=== PATIENT | male | born 1960 | race Caucasian/White ===

== ENCOUNTER → 2018-05-24 | Outpatient (CLI) | payer BC ==
[2018-05-24 11:34] LABS: Basophils # (A) 0.1 k/uL (0-0.2); Basophils % (A) 1 %; Eosinophils # (A) 0.3 k/uL (0-0.7); Eosinophils % (A) 5 %; HCT 45.4 % (39.0-53.0); HGB 14.9 gm/dL (13.0-17.5); Lymphocytes # (A) 1.2 k/uL (1.0-4.8); Lymphocytes % (A) 23 %; MCH 30.3 pg (25.0-35.0); MCHC 32.7 g/dL (31.0-37.0); MCV 92.5 fL (80.0-100.0); Mean Platelet Volume 10.1; Monocytes # (A) 0.3 k/uL (0-1.0); Monocytes % (A) 6 %; Neutrophils # (A) 3.4 k/uL (1.3-7.7); Neutrophils % (A) 65 %; Platelet Count 105 k/uL (150-450); RBC 4.91 m/uL (4.30-5.90); RDW 14.5 % (11.5-15.5); WBC 5.3 k/uL (3.8-10.6)
[2018-05-24 17:28] LABS: Albumin 4.7 g/dL (3.80-4.90); Albumin/Globulin Ratio 2.94 (1.60-3.17); Anion Gap 9.3 mmol/L (4.00-12.00); Carbon Dioxide 24.7 mmol/L (21.6-31.8); Globulin 1.6 g/dL (1.6-3.3); LDL Cholesterol,Calculated 110.6 mg/dL (0.0-131.0); Potassium 4.3 mmol/L (3.5-5.5); Total Bilirubin 0.7 mg/dL (0.2-1.2); Total Protein 6.3 g/dL (6.2-8.2); VLDL Calculation 18.4 mg/dL (5.00-40.00)
== END | disposition home or self-care (01) ==
LOC: LABWHC1 09:37
PROVIDERS: ATTEND Nurse Practitioner Family
DX: Z01.812 Encounter for preprocedural laboratory examination (principal); E78.2 Mixed hyperlipidemia; Z12.5 Encounter for screening for malignant neoplasm of prostate
CPT/HCPCS: 36415; 80053; 80061; 84153; 85025

== ENCOUNTER 2018-09-17 09:17 | Emergency (ER) | payer BC ==
[2018-09-17] MEDS ORDERED: PROPARACAINE 0.5% OPHTH DROPS 15 ML BTL RIGHT EYE STA (09:45)
--- NOTE | 2018-09-17 10:03 | ED ---
Eye Problem HPI - General Chief complaint: Eye Problems Stated complaint: FB in eye Time Seen by Provider: 09/17/18 09:41 Source: patient Mode of arrival: ambulatory Limitations: no limitations - History of Present Illness Initial comments: Patient is a 58-year-old male presenting to the emergency Department with complaints of redness and irritation of his right eye 2 days. Patient states it feels like there something in his right eye. He does not remember any foreign object that he might, in contact with. Patient denies contact use. Patient admits to clear drainage from the eye. No changes in his vision. Patient denies headache, fever, chills. No other complaints at this time. - Related Data Previous Rx's Medication Instructions Recorded Sulfacetamide 10% Ophth Soln 2 drops RIGHT EYE Q6H 5 Days #1 09/17/18 [Bleph-10] bottle Allergies Allergy/AdvReac Type Severity Reaction Status Date / Time azithromycin [From Zithromax] Allergy Rash/Hives Verified 09/17/18 09:28 cephalexin [From Keflex] Allergy Rash/Hives Verified 09/17/18 09:28 dexamethasone [From Decadron] Allergy Rash/Hives Verified 09/17/18 09:28 Review of Systems ROS Statement: Those systems with pertinent positive or pertinent negative responses have been documented in the HPI. ROS Other: All systems not noted in ROS Statement are negative. Past Medical History Past Medical History: No Reported History History of Any Multi-Drug Resistant Organisms: None Reported Additional Past Surgical History / Comment(s): RT shoulder surgery Past Psychological History: No Psychological Hx Reported Smoking Status: Current every day smoker Past Alcohol Use History: Occasional Past Drug Use History: None Reported General Exam - General Exam Comments Initial Comments: GENERAL: Well-appearing, well-nourished and in no acute distress. HEAD: Atraumatic, normocephalic. EYES: Pupils equal round and reactive to light, extraocular movements intact, sclera anicteric, left conjunctiva is normal, right conjunctiva is slightly injected. Clear drainage from the right eye. Fluorescein stain seen under black light revealed a corneal abrasion at about the 3 o'clock position. ENT: TMs normal, nares patent, oropharynx clear without exudates. Moist mucous membranes. NECK: Normal range of motion, supple without lymphadenopathy or JVD. LUNGS: Breath sounds clear to auscultation bilaterally and equal. No wheezes rales or rhonchi. HEART: Regular rate and rhythm without murmurs, rubs or gallops. ABDOMEN: Soft, nontender, normoactive bowel sounds. No guarding, no rebound. No masses appreciated. : Deferred EXTREMITIES: Normal range of motion, no pitting or edema. No clubbing or cyanosis. NEUROLOGICAL: Cranial nerves II through XII grossly intact. Normal speech, normal gait. PSYCH: Normal mood, normal affect. SKIN: Warm, Dry, normal turgor, no rashes or lesions noted. Limitations: no limitations Course Vital Signs 09/17/18 09/17/18 09:21 10:42 Temperature 97.7 F 97.8 F Pulse Rate 66 68 Respiratory 18 14 Rate Blood Pressure 150/77 148/76 O2 Sat by Pulse 100 98 Oximetry Medical Decision Making - Medical Decision Making Patient is a 58-year-old male presenting with right eye irritation 2 days. On exam patient has redness and clear drainage from the right eye. Exam with fluorescein stain, under the black light reveals a corneal abrasion present. Patient had relief with proparacaine drops. Patient will be given antibiotic eyedrops. Patient is stable for discharge. Patient will follow up with ophthalmology if symptoms persist after 2-3 days. Return parameters were discussed with the patient he verbalized an understanding. Case discussed with Dr. Hernandez. Disposition Clinical Impression: Corneal abrasion Disposition: HOME SELF-CARE Condition: Stable Instructions (If sedation given, give patient instructions): Corneal Abrasion (ED) Additional Instructions: Please return to the Emergency Department if symptoms worsen or any other concerns. Follow-up with ophthalmology in 2-3 days if symptoms persist. Prescriptions: Sulfacetamide 10% Ophth Soln [Bleph-10] 2 drops RIGHT EYE Q6H 5 Days #1 bottle Is patient prescribed a controlled substance at d/c from ED?: No Referrals: Karissa Taylor III, MD [Primary Care Provider] - 1-2 days
[2018-09-17 10:47] VITALS: BP 148/76; PULSE 68; RESP 14; TEMP 97.8
== END 2018-09-17 10:42 | disposition home or self-care (01) ==
LOC: EC 09:17
DX: S05.01XA Injury of conjunctiva and corneal abrasion without foreign body, right eye, initial encounter (principal); F17.200 Nicotine dependence, unspecified, uncomplicated; Z88.1 Allergy status to other antibiotic agents; Z88.8 Allergy status to other drugs, medicaments and biological substances; X58.XXXA Exposure to other specified factors, initial encounter
CPT/HCPCS: 99283

== ENCOUNTER → 2019-09-30 | Outpatient (CLI) | payer OTHER ==
[2019-09-30 09:39] LABS: Basophils # (A) 0.1 k/uL (0-0.2); Basophils % (A) 1 %; Eosinophils # (A) 0.3 k/uL (0-0.7); Eosinophils % (A) 5 %; HCT 47.3 % (39.0-53.0); HGB 15.2 gm/dL (13.0-17.5); Lymphocytes # (A) 1.4 k/uL (1.0-4.8); Lymphocytes % (A) 27 %; MCH 30.2 pg (25.0-35.0); MCHC 32.2 g/dL (31.0-37.0); MCV 93.9 fL (80.0-100.0); Mean Platelet Volume 10.2; Monocytes # (A) 0.3 k/uL (0-1.0); Monocytes % (A) 5 %; Neutrophils # (A) 3.2 k/uL (1.3-7.7); Neutrophils % (A) 60 %; Platelet Count 118 k/uL (150-450); RBC 5.03 m/uL (4.30-5.90); RDW 13.3 % (11.5-15.5); WBC 5.3 k/uL (3.8-10.6)
[2019-09-30 18:22] LABS: African American GFR (CKD) 77.3 (60.0-200.0); Albumin 4.3 g/dL (3.80-4.90); Albumin/Globulin Ratio 2.05 (1.60-3.17); Anion Gap 10.3 mmol/L (4.00-12.00); BUN/Creat Ratio 13.33 Ratio (12.00-20.00); Calcium 9.1 mg/dL (8.7-10.3); Carbon Dioxide 22.7 mmol/L (21.6-31.8); Chol/HDL Ratio 3.08; Globulin 2.1 g/dL (1.6-3.3); LDL Cholesterol,Calculated 111.4 mg/dL (0.0-131.0); Non-African American GFR(CKD) 66.7 (60.0-200.0); Potassium 4.5 mmol/L (3.5-5.5); Total Bilirubin 0.4 mg/dL (0.2-1.2); Total Protein 6.4 g/dL (6.2-8.2); VLDL Calculation 15.6 mg/dL (5.00-40.00)
== END | disposition home or self-care (01) ==
LOC: LABWHC1 08:37
PROVIDERS: ATTEND Family Medicine
DX: Z01.818 Encounter for other preprocedural examination (principal); Z12.5 Encounter for screening for malignant neoplasm of prostate; E78.2 Mixed hyperlipidemia
CPT/HCPCS: 36415; 80053; 80061; 84153; 85025

== ENCOUNTER → 2019-10-16 | Outpatient (CLI) | payer OTHER ==
--- NOTE | 2019-10-16 08:20 | CTL ---
EXAMINATION TYPE: CT Low Dose Lung DATE OF EXAM ORDERED: 10/16/2019 COMPARISON: HISTORY: . Low Dose CT Lung Screening CT DLP: 72.[address] CTDI: 1.7 mGy IV CONTRAST USED: None. SCREENING VISIT: First visit COMPARISON: None. TECHNIQUE: Low dose computed tomography scan was performed through the chest at 1 millimeter thick se ctions and reconstructed images in the coronal plane at [address] DIAGNOSTIC QUALITY: Satisfactory FINDINGS: LUNG NODULES: Not presentLeft lung: no nodules identified.Right lung: no nodules identified. LUNGS: COPD: Severity: There is severe biapical scarring with areas of confluent nodular infiltrate. Moderat e hyperinflation compatible COPD. Moderate least severe paraseptal emphysematous changes noted. Scatt ered areas of subpleural fibrosis. Fibrosis: Severity:None Lymph nodes: None Other findings: None RIGHT PLEURAL SPACE: Effusion: None Calcification: None Thickening: None Pneumothorax: None LEFT PLEURAL SPACE: Effusion: None Calcification: None Thickening: None Pneumothorax: None HEART: Heart Size: Mildly enlarged Coronary calcification: Mild Pericardial effusion: None OTHER FINDINGS: Upper abdomen: No significant abnormality Bony thorax: Degenerative changes Supraclavicular region: No significant abnormalityOther: Ascending thoracic aortic aneurysm measuring 4.1 cm AP dimension.I IMPRESSION: 1.There is severe biapical scarring with areas of confluent nodular infiltrate. 2. Moderate hyperinflation compatible COPD. 3. Moderate least severe paraseptal emphysematous changes noted. 4. Scattered areas of subpleural fibrosis. FOLLOW UP CT CHEST RECOMMENDATION: 6 month follow-up by LDCT recommended. Smoking cessation advised. CT LUNG RAD: LUNG RAD CATEGORY 3 probably benign. Six-month follow-up advised.
== END | disposition home or self-care (01) ==
LOC: RADCTMAIN 07:38
PROVIDERS: ATTEND Family Medicine
DX: Z12.2 Encounter for screening for malignant neoplasm of respiratory organs (principal); J43.9 Emphysema, unspecified; J84.10 Pulmonary fibrosis, unspecified; J98.4 Other disorders of lung; F17.210 Nicotine dependence, cigarettes, uncomplicated

== ENCOUNTER 2019-11-14 06:54 | Day surgery (SDC) | payer OTHER ==
[2019-11-11 10:12] VITALS: BMI 19.2
[~2019-11-14 06:54] MED LIST: LACTATED RINGERS 1,000 ML IV SCH; LIDOCAINE 1% (10MG/ML) FOR IV START INTRADERMA PRN
[2019-11-14 07:19] VITALS: TEMP 97.6
--- NOTE | 2019-11-14 07:51 | P.GSHP ---
History of Present Illness H&P Date: 11/14/19 Chief Complaint: History of colon polyps This a 59-year-old male presents today for colonoscopy. Patient previous history of colon polyps. Past Medical History Past Medical History: Cancer, Osteoarthritis (OA) Additional Past Medical History / Comment(s): Hx Testicular cancer in 1981. History of Any Multi-Drug Resistant Organisms: None Reported Past Surgical History: Orthopedic Surgery Additional Past Surgical History / Comment(s): Right shoulder surgery, right leg surgery with clayton in femur. Past Anesthesia/Blood Transfusion Reactions: No Reported Reaction Past Psychological History: No Psychological Hx Reported Smoking Status: Current every day smoker Past Alcohol Use History: Heavy Additional Past Alcohol Use History / Comment(s): Has been smoking since 23 yrs old, 1 PPD. Past Drug Use History: None Reported - Past Family History Father Family Medical History: Cancer Additional Family Medical History / Comment(s): Brain tumor, lung cancer. Mother Family Medical History: Cancer Additional Family Medical History / Comment(s): "Female cancer" Medications and Allergies Home Medications Medication Instructions Recorded Confirmed Type No Known Home Medications 11/11/19 11/14/19 History Allergies Allergy/AdvReac Type Severity Reaction Status Date / Time azithromycin [From Zithromax] Allergy Rash/Hives Verified 11/14/19 07:21 cephalexin [From Keflex] Allergy Rash/Hives Verified 11/14/19 07:21 dexamethasone [From Decadron] Allergy Rash/Hives Verified 11/14/19 07:21 Surgical - Exam Vital Signs Temp Pulse Resp BP Pulse Ox 97.6 F 81 16 135/85 99 11/14/19 07:15 11/14/19 07:15 11/14/19 07:15 11/14/19 07:15 11/14/19 07:15 - General well developed, well nourished, no distress - Eyes PERRL - ENT normal pinna - Neck no masses - Respiratory normal expansion - Cardiovascular Rhythm: regular - Abdomen Abdomen: soft, non tender Assessment and Plan Assessment: History of colon polyps. We'll perform colonoscopy.
[2019-11-14] MEDS ORDERED: PROPOFOL 10 MG/ML 20 ML VIAL IV ONE (08:00)
[2019-11-14] MEDS ORDERED: GLUCAGON 1 MG/ML VIAL ONE (08:00)
--- NOTE | 2019-11-14 08:17 | P.OP ---
Date of Procedure: 11/14/19 Preoperative Diagnosis: History: Polyps Postoperative Diagnosis: Diverticulosis Left colon inflammation biopsy pending Procedure(s) Performed: Colonoscopy Anesthesia: MAC Surgeon: Gabriel Falcon Pathology: other (colon) Condition: stable Disposition: PACU Description of Procedure: The patient's placed on the endoscopy table in the lateral position. He received IV sedation. Digital rectal exam is performed which revealed external hemorrhoids. Flexible colonoscope was then placed patient anus passed throughout the colon. The patient was noted to have left colon formation. The scope was placed the level of the right colon however could not be passed into the cecum due to tortuous colon. Several times made to maneuver the scope into the cecum was impossible. Scope was withdrawn. The distal A;, transverse colon appeared normal. In the descending colon at approximately the 65 cm ravindra there was some inflammatory changes which were thought to be related to into layers. A biopsies performed. Scope was brought back and the remaining of the descending; had diverticular changes. Scope summer back the rectum and this appeared normal. Scope was withdrawn for patient.
[2019-11-14] MEDS ORDERED: DIGOXIN 250 MCG/ML 2 ML AMP IVP ONE (08:52)
--- NOTE | 2019-11-14 10:45 | ECHOF ---
Referral Reason:LV function, new afib MEASUREMENTS -------- HEIGHT: 188.0 cm WEIGHT: 65.8 kg BP: 90/50 RVIDd: 3.6 cm (< 3.3) IVSd: 1.4 cm (0.6 - 1.1) LVIDd: 3.1 cm (3.9 - 5.3) LVPWd: 1.6 cm (0.6 - 1.1) IVSs: 1.5 cm LVIDs: 2.6 cm LVPWs: 1.7 cm LAESV Index (A-L): 24.05 ml/m Ao Diam: 4.6 cm (2.0 - 3.7) AV Cusp: 2.8 cm (1.5 - 2.6) MV EXCURSION: 13.254 mm (> 18.000) MV EF SLOPE: 229 mm/s (70 - 150) EPSS: 1.2 cm RAP: 5.00 mmHg RVSP: 27.00 mmHg FINDINGS -------- A-fib with RVR The left ventricular size is normal. There is moderate concentric left ventricular hypertrophy. O verall left ventricular systolic function is mild-moderately impaired with, an EF between 40 - 45 %. The right ventricle is moderately enlarged. Normal LA size by volume 22+/-6 ml/m2. The right atrium is mildly enlarged. Interatrial and interventricular septum intact. There is no evidence of aortic regurgitation. There is no evidence of aortic stenosis. There is trace to mild mitral regurgitation. Mild tricuspid regurgitation present. There is no evidence of pulmonary hypertension. The right v entricular systolic pressure, as measured by Doppler, is 27.00mmHg. There is no pulmonic regurgitation present. The aortic root and ascending aorta are dilated measuring up to (4.6) cm. There is no pericardial effusion. CONCLUSIONS -------- 1. A-fib with RVR 2. The left ventricular size is normal. 3. There is moderate concentric left ventricular hypertrophy. 4. Overall left ventricular systolic function is mild-moderately impaired with, an EF between 40 - 45 %. 5. The right ventricle is moderately enlarged. 6. The right atrium is mildly enlarged. 7. There is trace to mild mitral regurgitation. 8. Mild tricuspid regurgitation present. 9. The aortic root and ascending aorta are dilated measuring up to (4.6) cm. CHROME PLATER HELPER: Skylar Ramos RDCS
[2019-11-14] MEDS ORDERED: LACTATED RINGERS 1,000 ML IV ONE (11:45)
[2019-11-14 12:29] VITALS: RESP 16
[2019-11-14] MEDS ORDERED: AMIODARONE 200 MG TAB PO SCH (12:30)
[2019-11-14 14:11] VITALS: BP 130/79; PULSE 59
--- NOTE | 2019-11-14 14:23 | P.CRDCN ---
History of Present Illness Consult date: 11/14/19 History of present illness: CHIEF COMPLAINT: Atrial fibrillation HISTORY OF PRESENT ILLNESS: This is a 59-year old male with a past medical history significant for nicotine dependence. We have been asked to see the patient in consultation for atrial fibrillation. Patient underwent colonoscopy today with Dr. Falcon revealing diverticulosis and left colon inflammation. Biopsies were obtained. Postoperatively, the patient went into atrial fibrillation with RVR. Patient examined in the recovery room with Dr. Welsh. Patient's is at the bedside. Patient follows in the office with Shashi and is scheduled to see him on Sunday secondary to an aortic aneurysm per the patient's . Patient denies previous history of atrial fibrillation. He currently denies chest pain or shortness of breath. Denies palpitations. DIAGNOSTICS: EKG reveals atrial fibrillation with rapid ventricular rate. Laboratory data: Pending Current home cardiac medications include none Echocardiogram completed revealing ejection fraction between 40 and 45%, trace to mild mitral regurgitation and mild tricuspid regurgitation REVIEW OF SYSTEMS: At the time of my exam: CONSTITUTIONAL: Denies fever or chills. HEENT: Denies blurred vision, vision changes, or eye pain. Denies hemoptysis CARDIOVASCULAR: Denies chest pain, orthopnea, PND or palpitations RESPIRATORY: No shortness of breath. GASTROINTESTINAL: Denies abdominal pain. Denies nausea or vomiting. HEMATOLOGIC: Denies bleeding disorders. GENITOURINARY: Denies any blood in urine. SKIN: Denies pruitis. Denies rash. PHYSICAL EXAM: VITAL SIGNS: Reviewed. GENERAL: Well-developed in no acute distress. HEENT: Head is normocephalic. Pupils are equal, round. Sclerae anicteric. Mucous membranes of the mouth are moist. Neck supple. No JVD or thyromegaly LUNGS: Respirations even and unlabored. Lungs essentially clear to auscultation bilaterally. HEART: Irregular rate and rhythm. S1 and S2 heard. ABDOMEN: Soft. Nondistended. Nontender. EXTREMITIES: Normal range of motion. No clubbing or cyanosis. Peripheral pulses intact. No lower extremity edema NEUROLOGIC: Awake and alert. Oriented x 3. ASSESSMENT: New-onset paroxysmal atrial fibrillation with rapid ventricular rate History of ascending thoracic aortic aneurysm Nicotine dependence PLAN: Patient received one time dose of digoxin IVP in the recovery room. He has since converted to sinus mechanism with a rate in the 60s. Echocardiogram reviewed by Dr. Welsh Obtain TSH, CBC, and CMP Case discussed with Dr. Falcon. No anticoagulation today secondary to biopsies taken during colonoscopy. Will begin Eliquis 5 mg twice a day for anticoagulation. Patient instructed to begin this tomorrow. Will also begin digoxin 250mcg daily. Rx sent to pharmacy. Patient may be discharged home today from a cardiac perspective. He has an appointment scheduled with Dr. Marion on Sunday per the patient's . Nurse practitioner note has been reviewed by physician. Signing provider agrees with the documented findings, assessment, and plan of care. Past Medical History Past Medical History: Cancer, Osteoarthritis (OA) Additional Past Medical History / Comment(s): Hx Testicular cancer in 1981. History of Any Multi-Drug Resistant Organisms: None Reported Past Surgical History: Orthopedic Surgery Additional Past Surgical History / Comment(s): Right shoulder surgery, right leg surgery with clayton in femur. Past Anesthesia/Blood Transfusion Reactions: No Reported Reaction Past Psychological History: No Psychological Hx Reported Smoking Status: Current every day smoker Past Alcohol Use History: Heavy Additional Past Alcohol Use History / Comment(s): Has been smoking since 23 yrs old, 1 PPD. Past Drug Use History: None Reported - Past Family History Father Family Medical History: Cancer Additional Family Medical History / Comment(s): Brain tumor, lung cancer. Mother Family Medical History: Cancer Additional Family Medical History / Comment(s): "Female cancer" Medications and Allergies Home Medications Medication Instructions Recorded Confirmed Type Apixaban [Eliquis] 5 mg PO BID #60 tab 11/14/19 Rx Digoxin [Lanoxin] 250 mcg PO DAILY #90 tablet 11/14/19 Rx Allergies Allergy/AdvReac Type Severity Reaction Status Date / Time azithromycin [From Zithromax] Allergy Rash/Hives Verified 11/14/19 07:21 cephalexin [From Keflex] Allergy Rash/Hives Verified 11/14/19 07:21 dexamethasone [From Decadron] Allergy Rash/Hives Verified 11/14/19 07:21 Physical Exam Vitals: Vital Signs Temp Pulse Pulse Resp BP Pulse Ox 11/14/19 13:47 67 16 131/84 92 L 11/14/19 13:30 57 L 16 117/73 92 L 11/14/19 13:07 56 L 16 131/81 99 11/14/19 12:28 53 L 16 104/78 93 L 11/14/19 12:00 138 H 18 104/78 99 11/14/19 11:40 127 H 18 105/81 99 11/14/19 11:10 132 H 18 100/76 100 11/14/19 10:38 107 H 18 115/76 100 11/14/19 10:23 115 H 16 119/75 100 11/14/19 09:43 102 H 16 113/72 95 11/14/19 09:26 107 H 16 113/73 100 11/14/19 09:12 104 H 14 109/70 100 11/14/19 08:50 105 H 16 90/50 100 11/14/19 08:40 118 H 18 108/73 100 11/14/19 08:34 76 16 91/57 98 11/14/19 08:30 83 16 93/64 98 11/14/19 08:26 121 H 16 107/71 98 11/14/19 08:24 120 H 16 91/60 99 11/14/19 08:22 120 H 16 91/60 100 11/14/19 08:20 70 16 92/64 94 L 11/14/19 07:15 97.6 F 81 16 135/85 99 Intake and Output 11/13/19 11/14/19 11/14/19 22:59 06:59 14:59 Intake Total 1400 Output Total 500 Balance 900 Intake: IV 1400 Output: Urine 500 Other: Weight 66.2 kg Results Current Medications Generic Name Dose Route Start Last Admin Trade Name Freq PRN Reason Stop Dose Admin Lactated Ringer's 1,000 mls @ 20 mls/hr 11/14/19 05:25 11/14/19 07:30 Lactated Ringers IV 1,400 mls .Q24H ANITA Administration Lidocaine HCl 0.1 ml 11/14/19 05:25 11/14/19 07:30 Lidocaine 1% (10mg/Ml) For Iv Start INTRADERMA 0.1 ml PER PROTOCOL PRN Administration IV Start Intake and Output 11/13/19 11/14/19 11/14/19 22:59 06:59 14:59 Intake Total 1400 Output Total 500 Balance 900 Intake: IV 1400 Output: Urine 500 Other: Weight 66.2 kg Patient Weight 11/15/19 06:59 Weight 66.2 kg
[2019-11-14 14:46] LABS: Basophils % (A) 1 %; Eosinophils # (A) 0.2 k/uL (0-0.7); Eosinophils % (A) 2 %; HCT 44.1 % (39.0-53.0); HGB 14.5 gm/dL (13.0-17.5); Lymphocytes # (A) 1.3 k/uL (1.0-4.8); Lymphocytes % (A) 21 %; MCH 30.4 pg (25.0-35.0); MCV 92.1 fL (80.0-100.0); Mean Platelet Volume 9.5; Monocytes # (A) 0.3 k/uL (0-1.0); Monocytes % (A) 6 %; Neutrophils # (A) 4.3 k/uL (1.3-7.7); Neutrophils % (A) 69 %; Platelet Count 118 k/uL (150-450); RBC 4.78 m/uL (4.30-5.90); RDW 13.3 % (11.5-15.5); WBC 6.2 k/uL (3.8-10.6)
[2019-11-14 15:25] LABS: ALT 12 U/L (4-49); AST 23 U/L (17-59); African American GFR (CKD) >90 (>60 ml/min/1.73 sqM); Albumin 3.4 g/dL (3.5-5.0); Alkaline Phosphatase 61 U/L (38-126); Anion Gap 6 mmol/L; Blood Urea Nitrogen 12 mg/dL (9-20); Carbon Dioxide 22 mmol/L (22-30); Chloride 106 mmol/L (98-107); Glucose 90 mg/dL (74-99); Non-African American GFR(CKD) 87 (>60 ml/min/1.73 sqM); Potassium 4.6 mmol/L (3.5-5.1); Sodium 134 mmol/L (137-145); Total Protein 5.7 g/dL (6.3-8.2)
== END 2019-11-14 14:19 | disposition home or self-care (01) ==
LOC: ORWHC2ENDO 06:54
PROVIDERS: ATTEND Surgery
DX: Z12.11 Encounter for screening for malignant neoplasm of colon (principal); K52.9 Noninfective gastroenteritis and colitis, unspecified; K57.30 Diverticulosis of large intestine without perforation or abscess without bleeding; I48.0 Paroxysmal atrial fibrillation; Z86.010 Personal history of colon polyps; Q43.9 Congenital malformation of intestine, unspecified; F17.210 Nicotine dependence, cigarettes, uncomplicated; M19.90 Unspecified osteoarthritis, unspecified site; Z88.1 Allergy status to other antibiotic agents; Z88.8 Allergy status to other drugs, medicaments and biological substances; Z98.890 Other specified postprocedural states; Z85.47 Personal history of malignant neoplasm of testis; Z79.01 Long term (current) use of anticoagulants; Z79.899 Other long term (current) drug therapy; Z80.1 Family history of malignant neoplasm of trachea, bronchus and lung; Z80.8 Family history of malignant neoplasm of other organs or systems
CPT/HCPCS: 93306; 93005; 88305; 80053; 84443; 85025; 45380; J1610; J1160; J2704

== ENCOUNTER 2019-12-10 06:08 | Day surgery (SDC) | payer OTHER ==
[~2019-12-10 06:08] MED LIST changes: +ALPRAZolam 0.25 MG TAB PO PRN; +ALPRAZolam 0.5 MG TAB PO PRN; -LACTATED RINGERS 1,000 ML IV SCH; -LIDOCAINE 1% (10MG/ML) FOR IV START INTRADERMA PRN; +NITROGLYCERIN SL TABS 0.4 MG TAB SUBLINGUAL PRN; +SODIUM CHLORIDE 0.9% 1,000 ML in EMPTY BAG 1 BAG IV ONE
[2019-12-10] MEDS ORDERED: ATORVASTATIN 80 MG TAB PO ONE (07:00)
[2019-12-10] MEDS ORDERED: ASPIRIN 325 MG TAB PO ONE (07:00)
[2019-12-10 07:14] LABS: Eosinophils % (A) 3 %; HCT 43.7 % (39.0-53.0); Lymphocytes % (A) 16 %; MCH 31.7 pg (25.0-35.0); MCHC 34.4 g/dL (31.0-37.0); MCV 92.1 fL (80.0-100.0); Mean Platelet Volume 9.6; Monocytes % (A) 6 %; Neutrophils % (A) 73 %; Platelet Count 120 k/uL (150-450); RBC 4.74 m/uL (4.30-5.90); RDW 12.9 % (11.5-15.5); WBC 8.2 k/uL (3.8-10.6)
[2019-12-10 07:15] LABS: Basophils # (A) 0.1 k/uL (0-0.2); Basophils % (A) 1 %; Eosinophils # (A) 0.2 k/uL (0-0.7); Lymphocytes # (A) 1.3 k/uL (1.0-4.8); Monocytes # (A) 0.5 k/uL (0-1.0)
[2019-12-10] MEDS ORDERED: SODIUM CHLORIDE 0.9% 1,000 ML IV ONE (07:17)
[2019-12-10] MEDS ORDERED: MIDAZOLAM 2 MG/2 ML VIAL IV ONE (07:40)
[2019-12-10] MEDS ORDERED: LIDOCAINE 1% INJ 10MG/ML (20 ML MDV) SQ ONE (07:41)
[2019-12-10] MEDS ORDERED: VERAPAMIL SYRINGE (5 MG/10 ML) INTRAARTER ONE (07:52)
[2019-12-10] MEDS: fentaNYL (PF) 50 MCG/ML 2 ML AMP IV ONE ×2 (08:00→08:13)
[2019-12-10] MEDS ORDERED: HYDROmorphone 0.5 MG/0.5 ML SYRINGE IVP ONE (08:38)
[2019-12-10] MEDS ORDERED: IOPAMIDOL-370 125ML BTL INJ ONE (08:48)
[2019-12-10] MEDS ORDERED: CLOPIDOGREL 75 MG TAB PO ONE (08:55)
[2019-12-10] MEDS ORDERED: RX INFO: IV CONTRAST WAS GIVEN 1 EACH MISC MISCELLANE PRN (08:56)
[2019-12-10] MEDS ORDERED: ZOLPIDEM 5 MG TAB PO PRN (08:56)
[2019-12-10] MEDS ORDERED: MAG HYDROX/AL HYDROX/SIMETH 30 ML CUP PO PRN (08:56)
[2019-12-10] MEDS ORDERED: ATROPINE SULFATE 0.1 MG/ML 10ML SYRINGE IV PRN (08:56)
[2019-12-10] MEDS ORDERED: NITROGLYCERIN SL TABS 0.4 MG TAB SUBLINGUAL PRN (08:56)
[2019-12-10] MEDS ORDERED: SODIUM CHLORIDE 0.9% 1,000 ML IV SCH (09:00)
[2019-12-10] MEDS: METOPROLOL SUCCINATE (ER) 25 MG TAB.ER.24H PO SCH (09:40)
--- NOTE | 2019-12-10 10:26 | CC ---
CARDIAC CATHETERIZATION REPORT CARDIAC CATHETERIZATION AND PERCUTANEOUS CORONARY INTERVENTION: DATE OF SERVICE: 12/10/2019 PERFORMING PHYSICIAN: Jim Marion MD. PROCEDURE PERFORMED: 1. Selective right and left coronary angiogram. 2. Left heart catheterization. 3. Atherectomy of the right coronary artery using the orbital atherectomy device from [employer]. 4. Successful stenting of the mid right coronary artery using 3.5 x 15 mm Xience NEREIDA drug-eluting stent with an excellent angiographic result and reduction of stenosis from 80% to 0%. 5. Placement of temporary pacemaker from left groin approach. INDICATION: This is a 59-year-old gentleman with history of paroxysmal atrial fibrillation, who unfortunately continues to smoke. He was experiencing shortness of breath with exertion concerning for severe underlying coronary artery disease. Recent echocardiogram revealed cardiomyopathy with EF between 40%-45%. Because of that, heart catheterization was advised. APPROACH: Right radial artery and left common femoral vein. COMPLICATION: None. LEVEL OF SEDATION: Moderate with sedation length of 1 hour and 9 minutes. PROCEDURE DESCRIPTION: After obtaining an informed consent, the patient was brought to the cardiac seed laboratory assistant. The right radial artery was cannulated using micropuncture technique and a micropuncture wire passed easily, then I placed a 6-Micronesian sheath. At that point, the patient was given a total of the 2 mg of verapamil IA and 6000 units of heparin IV. I did perform selective right and left coronary angiogram using JR4 and JL3.5 catheters. Left heart catheterization was performed using the JR4 catheter which crossed the aortic valve, then I did the pullback across the valve after the catheter was flushed. After that, I decided to intervene on the right coronary artery. Please see a separate paragraph for that. Also, I placed temporary pacemaker from left groin approach. The procedure was completed without any complication. SELECTIVE CORONARY ANGIOGRAM: 1. The right coronary artery is a large caliber vessel, it is a dominant vessel. The proximal RCA has mild disease only. The mid RCA has a lesion, appeared to be in the range of 80%. The RCA distally appeared to be tortuous but angiographically normal and bifurcates into PDA and PLV branches, both appeared to be angiographically normal. The RCA is overall calcified. 2. The left main is angiographically normal. It bifurcates into LCX and LAD. 3. The LCX is a large caliber vessel. The LCX is a nondominant vessel. The LCX overall appears to be angiographically normal. It gives rise into a large OM branch in the midportion which seems to be angiographically normal. 4. The ramus intermedius is a medium caliber vessel, seems to be angiographically normal. 5. The left anterior descending artery is a large caliber vessel. It does reach the apex. The LAD is calcified with mild disease only. In the proximal to midportion, it gives rise into the first and second diagonal branches and both are medium caliber vessel with mild to moderate disease only. 6. HEMODYNAMICS: The LVEDP was about 12 mmHg without significant gradient across the aortic valve. 7. PCI of the RCA: Anticoagulation was achieved with heparin only with continuous ACT monitoring throughout the procedure. The patient was given additional 2000 of heparin throughout the procedure. 8. I did initially access the right common femoral vein, but I could not advance the wire and because of that, I decided to access the left common vein. The left common femoral vein was cannulated using micropuncture technique, the micropuncture wire passed easily, then I placed an 8-Micronesian sheath. 9. Under fluoroscopy guidance, I advanced the temporary pacemaker with a balloon inflated tip all the way to the apex of the right ventricle. I placed a temporary pacemaker, amp of 5 and backup heart rate of 60. 10.Subsequently, I engaged the right coronary artery using JR3.5 guide. I did wire the left anterior descending artery using the Viper Advantage wire. After that, I did prep the atherectomy device and then I advanced the device over the Viper wire to the right coronary artery where I did two runs of atherectomy under low speed with each run about 15-20 seconds. 11.After that, balloon angioplasty was performed using 3.0 x 12 mm balloon. Finally, I deployed 3.5 x 15 mm Xience drug-eluting stent where the stent was positioned under fluoroscopy guidance and deployed under 14 atmospheres for 20 seconds. The midportion of the stent was not well opposed and deployed and because of that, I post-dilated the stent using 3.25 x 12 mm NC balloon. The balloon was inflated under 12 atmospheres for 20 seconds. 12.After that, I gave the patient 100 mcg of nicardipine and 100 mcg of nitroglycerin with the following angiogram showing excellent angiographic results with good flow and without any dye staining. 13.There was possibly at the proximal edge of the stent, very small dissection was not flow limiting and at that point, but because of that I decided not to stent that segment. 14.The procedure was completed without any complication. 15.After that I did place a TR band in the right arm over the right wrist and also I pulled the temporary pacemaker from the left groin. CONCLUSION: 1. Calcified right and left coronary systems. 2. Critical disease involving the calcified right coronary artery. 3. I performed successful atherectomy and stenting of the right coronary artery with an excellent angiographic results and reduction of stenosis from 80% to 0%. 4. Mild disease involving the left coronary system. 5. Normal left ventricular end-diastolic pressure. POSTPROCEDURE MANAGEMENT: 1. Triple therapy including Plavix, Xarelto, and low-dose aspirin. 2. The dose of Xarelto will be reduced from 20 to 15 mg daily. 3. The aspirin will be stopped in the next few weeks. 4. Follow up with the patient. MMADRIANNE / RENNYN: [id number] /
--- NOTE | 2019-12-10 10:32 | LTR ---
DATE OF SERVICE: 12/10/2019 RE: Nathan Hamilton Dear Dr. Taylor; Mr. Nathan Hamilton was seen in the office recently where he was experiencing shortness of breath with exertion, concerning for severe underlying coronary artery disease. He underwent an echocardiogram which revealed cardiomyopathy with EF between 40%-45%. Today, I performed a heart catheterization on him and that revealed calcified right and left coronary systems with critical disease involving the mid right coronary artery. I did perform successful atherectomy and stenting of the right coronary artery with an excellent angiographic results and without any complication. I want to thank you for allowing us to participate in his care and please do not hesitate to call if you have any question or any concerns. Sincerely yours, MD JESSIE Brown / RENNYN: [id number] /
[2019-12-10 13:54] VITALS: BMI 19.1
[2019-12-10] MEDS ORDERED: ATORVASTATIN 80 MG TAB PO SCH (21:00)
[2019-12-11 05:31] VITALS: TEMP 98
[2019-12-11 07:22] LABS: Basophils % (A) 1 %; Eosinophils # (A) 0.2 k/uL (0-0.7); Eosinophils % (A) 4 %; HGB 13.9 gm/dL (13.0-17.5); Lymphocytes # (A) 1.5 k/uL (1.0-4.8); Lymphocytes % (A) 27 %; MCH 31.1 pg (25.0-35.0); MCV 94.4 fL (80.0-100.0); Mean Platelet Volume 8.9; Monocytes # (A) 0.3 k/uL (0-1.0); Monocytes % (A) 6 %; Neutrophils # (A) 3.3 k/uL (1.3-7.7); Neutrophils % (A) 61 %; Platelet Count 107 k/uL (150-450); RBC 4.46 m/uL (4.30-5.90); RDW 13.1 % (11.5-15.5); WBC 5.4 k/uL (3.8-10.6)
[2019-12-11 07:33] LABS: African American GFR (CKD) >90 (>60 ml/min/1.73 sqM); Anion Gap 3 mmol/L; Blood Urea Nitrogen 12 mg/dL (9-20); Calcium 8.8 mg/dL (8.4-10.2); Carbon Dioxide 27 mmol/L (22-30); Chloride 107 mmol/L (98-107); Glucose 102 mg/dL (74-99); Non-African American GFR(CKD) 83 (>60 ml/min/1.73 sqM); Potassium 4.4 mmol/L (3.5-5.1); Sodium 137 mmol/L (137-145)
[2019-12-11] MEDS: METOPROLOL SUCCINATE (ER) 25 MG TAB.ER.24H PO SCH (08:37)
[2019-12-11] MEDS ORDERED: CLOPIDOGREL 75 MG TAB PO SCH (09:00)
[2019-12-11] MEDS ORDERED: NIFEdipine XL 30 MG TAB.ER.24 PO SCH (09:00)
[2019-12-11] MEDS ORDERED: ASPIRIN 81 MG PO SCH (09:00)
[2019-12-11 09:10] VITALS: BP 123/66; PULSE 55; RESP 16
--- NOTE | 2019-12-11 11:20 | DS ---
DISCHARGE SUMMARY DATE OF ADMISSION: 12/10/2019 DISCHARGE DATE: 12/11/2019 BRIEF HISTORY: This is a 59-year-old gentleman who underwent yesterday successful stenting of the right coronary artery with adjunctive use of atherectomy. The procedure was performed from right radial approach. The patient was seen this morning. He is asymptomatic from a cardiovascular standpoint of view. He is going to be discharged home on triple therapy including low-dose aspirin as well as oral anticoagulation with Xarelto as well as Plavix. The patient is going to be seen in the office in a week. MMNORBERTOL / RENNYN: [id number] /
== END 2019-12-11 10:35 | disposition home or self-care (01) ==
LOC: CATHCVL 06:08 → 3NCARDOBS 08:50 → CATHCVL 12-11 10:35
PROVIDERS: ATTEND Internal Medicine Interventional Cardiology
DX: I25.10 Atherosclerotic heart disease of native coronary artery without angina pectoris (principal); I48.0 Paroxysmal atrial fibrillation; I71.2 Thoracic aortic aneurysm, without rupture; I42.9 Cardiomyopathy, unspecified; I10 Essential (primary) hypertension; F17.210 Nicotine dependence, cigarettes, uncomplicated; E78.00 Pure hypercholesterolemia, unspecified; Z88.1 Allergy status to other antibiotic agents; Z88.8 Allergy status to other drugs, medicaments and biological substances
CPT/HCPCS: 93458; 85347; 80048; 85025 ×2; C9602; C1769 ×6; C1725 ×2; C1894 ×2; C1887; C1714; C1874; J2250; J2001; J3010; J1644; J1170; Q9967

== ENCOUNTER → 2019-12-17 | Outpatient (CLI) | payer OTHER ==
--- NOTE | 2019-12-17 21:32 | CT ---
EXAMINATION TYPE: CT abdomen pelvis w con DATE OF EXAM: 12/17/2019 COMPARISON: None INDICATION: diverticulitis DLP: 530 mGycm, Automated exposure control for dose reduction was used. CONTRAST: 100 mL of Isovue 300. Study performed with Oral Contrast TECHNIQUE: Axial images were obtained from above the diaphragm to the pubic rami in the axial plane a t 5 mm thick sections. Reconstructed images are reviewed on the computer in the coronal plane. FINDINGS: Limited CT sections are obtained the lung bases. The lung bases are clear. Multiple surgical clips are at the level of the renal veins adjacent to the aorta and inferior vena cava. CT ABDOMEN: Liver: Normal Spleen: Normal Pancreas: Normal Adrenal glands: The adrenal glands are normal. Gallbladder: Normal Kidneys: No masses are evident. No hydronephrosis is present. No cysts are present. Delayed images were obtained through the kidneys, which remain unremarkable. Aorta: Vascular calcification is within the aorta. Inferior vena cava: Normal. CT PELVIS: Loops of bowel within the abdomen and pelvis are normal. A few scattered diverticuli are within the redundant sigmoid colon. The duodenum is slightly prominent fluid-filled. There are loops of bowel w hich are incompletely distended or lack oral contrast limiting their evaluation. Appendix: Not identified. No suspicious inflammatory changes or dilated tubular structures are eviden t. Urinary bladder: Normal. Genitourinary structures: Prostate is prominent. Multiple prostate calcifications are present. Osseous structures: No suspicious lytic or sclerotic lesions. IMPRESSIONS: 1. Diverticulosis without acute diverticulitis. 2. Prostate hypertrophy
== END | disposition home or self-care (01) ==
LOC: RADCTMAIN 17:29
PROVIDERS: ATTEND Surgery
DX: K57.90 Diverticulosis of intestine, part unspecified, without perforation or abscess without bleeding (principal); N40.0 Benign prostatic hyperplasia without lower urinary tract symptoms
CPT/HCPCS: 74177; Q9967

== ENCOUNTER → 2020-01-23 | Outpatient (CLI) | payer OTHER | END | disposition home or self-care (01) | LOC: LABWHC1 11:42 | PROVIDERS: ATTEND Family Medicine | DX: R97.20 Elevated prostate specific antigen [PSA] (principal) | CPT/HCPCS: 36415; 84153 ==

== ENCOUNTER → 2020-06-02 | Outpatient (CLI) | payer OTHER ==
--- NOTE | 2020-06-03 07:39 | CTL ---
EXAMINATION TYPE: CT Low Dose Lung DATE OF EXAM ORDERED: 06/02/2020 COMPARISON: 10/16/2019 HISTORY: . Low Dose CT Lung Screening CT DLP: [address] CTDI: 1.8 mGy IV CONTRAST USED: None. SCREENING VISIT: First visit COMPARISON: None. TECHNIQUE: Low dose computed tomography scan was performed through the chest at 1 millimeter thick se ctions and reconstructed images in the coronal plane at [address] DIAGNOSTIC QUALITY: Satisfactory FINDINGS: LUNG NODULES: There is biapical scarring are noted in pleural thickening unchanged from prior examina tion. No distinct nodule or mass identified. LUNGS: COPD: Severity: Moderate Fibrosis: Severity:None Lymph nodes: None Other findings: Emphysematous changes noted stable from prior examination. RIGHT PLEURAL SPACE: Effusion: None Calcification: None Thickening: None Pneumothorax: None LEFT PLEURAL SPACE: Effusion: None Calcification: None Thickening: None Pneumothorax: None HEART: Heart Size: Mildly enlarged Coronary calcification: Mild Pericardial effusion: None OTHER FINDINGS: Upper abdomen: No significant abnormality Bony thorax: Degenerative changes Supraclavicular region: No significant abnormalityOther: No significant abnormalityI IMPRESSION: Stable biapical scarring and pleural thickening. No distinct nodules or masses seen. FOLLOW UP CT CHEST RECOMMENDATION: Follow-up screening in one year. Smoking cessation recommended. CT LUNG RAD: LUNG RAD CATEGORY benign category 2
== END | disposition home or self-care (01) ==
LOC: RADCTMAIN 17:13
PROVIDERS: ATTEND Family Medicine
DX: J98.4 Other disorders of lung (principal)
CPT/HCPCS: 71271

== ENCOUNTER → 2021-04-21 | Outpatient (CLI) | payer OTHER ==
[2021-04-21 15:08] LABS: Basophils # (A) 0.04 X 10*3/uL (0.00-0.10); Basophils % (A) 0.8 %; Eosinophils # (A) 0.18 X 10*3/uL (0.04-0.35); Eosinophils % (A) 3.5 %; HCT 42.8 % (39.6-50.0); HGB 13.6 g/dL (13.0-17.0); Immature Grans, Automated 0.2 %; Lymphocytes # (A) 1.27 X 10*3/uL (0.90-5.00); MCH 29.5 pg (27.0-32.0); MCHC 31.8 g/dL (32.0-37.0); MCV 92.8 fL (80.0-97.0); Mean Platelet Volume 12.6 fL (9.5-12.2); Monocytes # (A) 0.33 X 10*3/uL (0.20-1.00); Monocytes % (A) 6.5 %; NRBC Per 100 WBC 0 /100 WBCS (0.0-0.0); Neutrophils # (A) 3.25 X 10*3/uL (1.80-7.70); Platelet Count 121 X 10*3/uL (140-440); RBC 4.61 X 10*6/uL (4.40-5.60); RDW 13.8 % (11.5-14.5); WBC 5.08 X 10*3/uL (4.50-10.00)
[2021-04-21 15:42] LABS: ALT 30 U/L (10-49); AST 23 U/L (14-35); African American GFR (CKD) 76.8 (60.0-200.0); Albumin 4.5 g/dL (3.8-4.9); Albumin/Globulin Ratio 2.05 (1.60-3.17); Alkaline Phosphatase 75 U/L (41-126); Blood Urea Nitrogen 16.8 mg/dL (9.0-27.0); Calcium 9.1 mg/dL (8.7-10.3); Carbon Dioxide 20.2 mmol/L (20.0-27.5); Chloride 104 mmol/L (96-109); Chol/HDL Ratio 2.67 Ratio; Globulin 2.2 g/dL (1.6-3.3); Glucose 82 mg/dL (70-110); LDL Cholesterol,Calculated 55.9 mg/dL (0.0-131.0); Non-African American GFR(CKD) 66.3 (60.0-200.0); Potassium 4.4 mmol/L (3.5-5.5); Sodium 139 mmol/L (135-145); Total Protein 6.7 g/dL (6.2-8.2)
== END | disposition home or self-care (01) ==
LOC: LABWHC1 07:55
PROVIDERS: ATTEND Family Medicine
DX: I73.00 Raynaud's syndrome without gangrene (principal)
CPT/HCPCS: 36415; 80053; 80061; 84443; 85025

== ENCOUNTER → 2021-05-30 | Outpatient (CLI) | payer MEDICARE, OTHER ==
--- NOTE | 2021-05-30 13:38 | CTL ---
EXAMINATION TYPE: CT Low Dose Lung DATE OF EXAM ORDERED: 05/30/2021 HISTORY: Tobacco use. Lung cancer screening CT DLP: [address] CTDI: 1.80 mGy Automated exposure control for dose reduction was used. SCREENING VISIT: Follow-up COMPARISON: CT dated 06/02/2020 TECHNIQUE: Low dose computed tomography scan was performed through the chest at 1 mm thick sections a nd reconstructed images in multiple planes at 1 mm and [address] DIAGNOSTIC QUALITY: Satisfactory FINDINGS: LUNG NODULES: None. LUNGS: COPD: Severity: Moderate Fibrosis: Severity: Bilateral apical thick pulmonary fibrotic changes, scarring and nodular thickenin g with traction bronchiectasis, stable. Lymph nodes: No pathologically enlarged lymph nodes in the chest. Other findings: Scattered bilateral pulmonary peripheral reticulations and minimal fibrotic changes. Paraseptal emphysema is also seen mainly in the lung apex. Bronchial thickening which could be relate d to chronic bronchitis. RIGHT PLEURAL SPACE: Effusion: None Calcification: None Thickening: None Pneumothorax: None LEFT PLEURAL SPACE: Effusion: None Calcification: None Thickening: None Pneumothorax: None HEART: Heart Size: Prominent Coronary Calcification: Marked Pericardial Effusion: None OTHER FINDINGS: Upper abdomen: Retroperitoneal surgical clips. Bony thorax: No aggressive bone lesion Supraclavicular region: None Other: Arterial atherosclerotic calcification. Ascending aortic aneurysm measuring up to 4.3 cm. IMPRESSION: Persistent COPD changes and other chronic pulmonary changes as detailed above. No definit e new or progressive lung nodule identified. Ascending aortic aneurysm measuring up to 4.[address] LUNG RAD AND CT CHEST RECOMMENDATION: Lung-Rad 1 Negative: Continue annual screening with LDCT in 12 months. S Modifier (other clinically significant findings): As above
== END | disposition home or self-care (01) ==
LOC: RADCTMAIN 11:25
PROVIDERS: ATTEND Family Medicine
DX: Z12.2 Encounter for screening for malignant neoplasm of respiratory organs (principal); J44.9 Chronic obstructive pulmonary disease, unspecified; I71.2 Thoracic aortic aneurysm, without rupture; Z87.891 Personal history of nicotine dependence
CPT/HCPCS: 71271

== ENCOUNTER 2021-07-06 10:33 | Day surgery (SDC) | payer MEDICARE, OTHER ==
[2021-07-05 09:05] VITALS: BMI 20.7
[~2021-07-06 10:33] MED LIST changes: -ALPRAZolam 0.25 MG TAB PO PRN; -ALPRAZolam 0.5 MG TAB PO PRN; +LACTATED RINGERS 1,000 ML IV SCH; -NITROGLYCERIN SL TABS 0.4 MG TAB SUBLINGUAL PRN; +SODIUM CHLORIDE 0.9% 1,000 ML IV SCH; -SODIUM CHLORIDE 0.9% 1,000 ML in EMPTY BAG 1 BAG IV ONE
[2021-07-06 11:00] VITALS: TEMP 97.9
[2021-07-06 11:31] LABS: Calcium 9.5 mg/dL (8.4-10.2); Potassium 4.6 mmol/L (3.5-5.1)
[2021-07-06] MEDS ORDERED: PROPOFOL 10 MG/ML 20 ML VIAL IV ONE (12:09)
--- NOTE | 2021-07-06 12:31 | P.PCN ---
Date of Procedure: 07/06/21 Operative Findings: Cardioversion Report Performing physician Jim Marion M.D. Procedure performed Successful cardioversion of atrial fibrillation to normal sinus mechanism using 120 J at first attempt Indication Symptomatic atrial fibrillation Complication None Level of sedation The procedure was performed under deep sedation using propofol with OFFICE MACHINES TEACHER in the room Procedure description After obtaining an informed consent the patient was brought to the recovery room. Sedation was introduced using propofol with OFFICE MACHINES TEACHER in the room. Subsequently the patient cardioverted from atrial fibrillation to normal sinus mechanism using 120 J and first attempt Conclusion Successful cardioversion of atrial fibrillation to normal sinus mechanism using 120 J Postprocedure management Continue the current medical regimen Continue oral anticoagulation Follow-up with the patient
[2021-07-06 13:15] VITALS: RESP 30
[2021-07-06 14:34] VITALS: BP 93/66; PULSE 90
== END 2021-07-06 14:45 | disposition home or self-care (01) ==
LOC: CATHCVL 10:33
PROVIDERS: ATTEND Internal Medicine Interventional Cardiology
DX: I48.91 Unspecified atrial fibrillation (principal); Z20.822 Contact with and (suspected) exposure to COVID-19
CPT/HCPCS: 92960; 80048; 87635; J2704

== ENCOUNTER → 2021-08-18 | Outpatient (CLI) | payer MEDICARE, OTHER ==
--- NOTE | 2021-08-18 17:11 | US ---
EXAMINATION TYPE: US kidneys/renal and bladder DATE OF EXAM: 08/18/2021 COMPARISON: CT abdomen and pelvis December 17, 2019 CLINICAL HISTORY: R31.9 MACROHEMATURIA. EXAM MEASUREMENTS: Right Kidney: 10.4 x 4.9 x 5.2 cm Left Kidney: 10.8 x 5.6 x 4.5 cm Right Kidney: No hydronephrosis or masses seen Left Kidney: No hydronephrosis or masses seen Bladder: wnl There is no evidence for hydronephrosis at this point in time. No nephrolithiasis is seen. No luciano s are identified. The urinary bladder is adequately distended. Bilateral ureteral jets are not seen . IMPRESSION: Source of hematuria not identified. If symptoms persist further investigation with CT uro gram would be warranted.
== END | disposition home or self-care (01) ==
LOC: RADUSWWP 16:15
PROVIDERS: ATTEND Family Medicine
DX: R31.9 Hematuria, unspecified (principal)
CPT/HCPCS: 76770

== ENCOUNTER → 2021-09-15 | Outpatient (CLI) | payer MEDICARE ==
--- NOTE | 2021-09-15 08:16 | CT ---
EXAMINATION TYPE: CT urogram wo/w con CT DLP: 2165 mGycm, Automated exposure control for dose reduction was used. DATE OF EXAM: 09/15/2021 7:45 AM COMPARISON: CT abdomen pelvis 12/17/2019. CLINICAL INDICATION:Male, 61 years old with history of R31.9 HEMATURIA, UNSPECIFIED; Hematuria, unspe cified, history of right testicular cancer TECHNIQUE: Urogram with unenhanced, nephrographic and excretory phase imaging of the abdomen and pelvis using tw o doses of 100 cc of IV contrast Isovue 300 contrast. Coronal and sagittal reformats were performed. One or more CT dose reduction strategies were utilized during this examination. 2D and 3D reconstruct ions are performed to assist visualization of the urinary tract on a separate workstation. FINDINGS: GENITOURINARY: RIGHT KIDNEY AND URETER: No calculi. No hydronephrosis or hydroureter. No renal mass or other lesions . No urothelial lesions: no filling defect, dilation, stricture or wall thickening. LEFT KIDNEY AND URETER: No calculi. No hydronephrosis or hydroureter. No renal mass or other lesions. No urothelial lesions: no filling defect, dilation, stricture or wall thickening. URINARY BLADDER: Normal, no calculi, mass or other lesions. REPRODUCTIVE: Prostate is enlarged measuring 5.3 cm in transverse dimension. Postsurgical changes of the right testicle. ABDOMEN LIVER: Unremarkable. GALLBLADDER AND BILE DUCTS: Unremarkable PANCREAS: Unremarkable. SPLEEN: Unremarkable. ADRENAL GLANDS: Unremarkable. STOMACH AND BOWEL: Small hiatal hernia. Colonic diverticulosis without evidence for acute diverticuli tis. No evidence of bowel obstruction. PERITONEUM/RETROPERITONEUM: No evidence of pneumoperitoneum, free fluid, or adenopathy. Post surgica l changes from retroperitoneal lymph node dissection. VASCULATURE: Atherosclerotic calcifications are present throughout the abdominal aorta and its branch es. No abdominal aortic aneurysm. MUSCULOSKELETAL: No acute osseous anomalies. No suspicious osseous lesions. Postsurgical changes of t he proximal right femur partially visualized. Degenerative changes of the visualized spine most prono unced at L5-S1. Multilevel Schmorl's nodes. SOFT TISSUE/ABDOMINAL WALL: Tiny fat filled lumbrical hernia. LOWER CHEST: Redemonstration of bibasilar fibrotic changes. IMPRESSION: 1. No evidence of urolithiasis or renal/urothelial neoplasm. 2. Colonic diverticulosis without evidence for acute diverticulitis. 3. Prostatomegaly.
== END | disposition home or self-care (01) ==
LOC: RADCTMAIN 06:29
PROVIDERS: ATTEND Family Medicine
DX: N40.0 Benign prostatic hyperplasia without lower urinary tract symptoms (principal); K57.30 Diverticulosis of large intestine without perforation or abscess without bleeding
CPT/HCPCS: 74178; 74400; Q9967

== ENCOUNTER → 2021-10-11 | Outpatient (CLI) | payer MEDICARE ==
[2021-10-11 15:01] LABS: Basophils # (A) 0.06 X 10*3/uL (0.00-0.10); Basophils % (A) 1.1 %; Eosinophils # (A) 0.16 X 10*3/uL (0.04-0.35); Eosinophils % (A) 2.8 %; HCT 42.1 % (39.6-50.0); HGB 13.7 g/dL (13.0-17.0); Immature Grans, Automated 0.2 %; Lymphocytes # (A) 1.48 X 10*3/uL (0.90-5.00); Lymphocytes % (A) 26.1 %; MCH 30.1 pg (27.0-32.0); MCHC 32.5 g/dL (32.0-37.0); MCV 92.5 fL (80.0-97.0); Mean Platelet Volume 12.7 fL (9.5-12.2); Monocytes # (A) 0.38 X 10*3/uL (0.20-1.00); Monocytes % (A) 6.7 %; NRBC Per 100 WBC 0 /100 WBCS (0.0-0.0); Neutrophils # (A) 3.57 X 10*3/uL (1.80-7.70); Neutrophils % (A) 63.1 %; Platelet Count 140 X 10*3/uL (140-440); RBC 4.55 X 10*6/uL (4.40-5.60); RDW 14.8 % (11.5-14.5); WBC 5.66 X 10*3/uL (4.50-10.00)
[2021-10-11 16:16] LABS: ALT 52 U/L (10-49); AST 38 U/L (14-35); African American GFR (CKD) 76.3 (60.0-200.0); Albumin 4.7 g/dL (3.8-4.9); Albumin/Globulin Ratio 1.96 (1.60-3.17); Alkaline Phosphatase 91 U/L (41-126); Blood Urea Nitrogen 12.6 mg/dL (9.0-27.0); Calcium 9.3 mg/dL (8.7-10.3); Carbon Dioxide 22.4 mmol/L (20.0-27.5); Chloride 103 mmol/L (96-109); Chol/HDL Ratio 2.41 Ratio; Globulin 2.4 g/dL (1.6-3.3); Glucose 77 mg/dL (70-110); LDL Cholesterol,Calculated 62.6 mg/dL (0.0-131.0); Non-African American GFR(CKD) 65.8 (60.0-200.0); Potassium 4.3 mmol/L (3.5-5.5); Sodium 139 mmol/L (135-145); Total Protein 7.1 g/dL (6.2-8.2)
== END | disposition home or self-care (01) ==
LOC: LABWHC1 08:21
PROVIDERS: ATTEND Family Medicine
DX: Z00.01 Encounter for general adult medical examination with abnormal findings (principal); E78.2 Mixed hyperlipidemia; I48.0 Paroxysmal atrial fibrillation; F17.210 Nicotine dependence, cigarettes, uncomplicated; I25.10 Atherosclerotic heart disease of native coronary artery without angina pectoris; K57.30 Diverticulosis of large intestine without perforation or abscess without bleeding; K21.9 Gastro-esophageal reflux disease without esophagitis; I73.00 Raynaud's syndrome without gangrene; N40.0 Benign prostatic hyperplasia without lower urinary tract symptoms; Z12.5 Encounter for screening for malignant neoplasm of prostate
CPT/HCPCS: 36415; 80053; 80061; 84153; 85025

== ENCOUNTER → 2022-05-10 | Outpatient (CLI) | payer MEDICARE ==
--- NOTE | 2022-05-10 10:49 | CT ---
EXAMINATION TYPE: CT angio thor/abd pel aorta CT DLP: 784.2 mGycm, Automated exposure control for dose reduction was used. DATE OF EXAM: 05/10/2022 9:53 AM COMPARISON: CT 12/17/2019 CT chest 05/30/2021. CLINICAL INDICATION:Male, 61 years old with history of I71.20;, aneurysm, history of testicular CA TECHNIQUE: Dissection protocol: Multiple axial CT images of the chest, abdomen, and pelvis were obtai perez prior and to the administration of IV contrast. 3-D reformats and maximum intensity projection fo rmat were performed on a separate workstation. Contrast used:100 mL of Isovue 370 without and with IV Contrast, Oral contrast used: None FINDINGS: ARTERIAL VASCULATURE: No evidence for intramural hematoma on noncontrast imaging. There are scattered atherosclerosis throughout the arterial vasculature. Ascending thoracic aorta measures up to 4.1 cm. The origins of the great vessels of the aortic arch are patent. No hemodynamically significant narro wing identified. The origins of the abdominal aorta including the celiac axis, superior mesenteric ar mell the single bilateral renal arteries are patent. The inferior mesenteric artery is not definitive ly visualized. The common iliac arteries are patent with moderate atherosclerosis. The external iliac arteries are patent with moderate atherosclerotic change. PULMONARY ARTERIAL VASCULATURE: Normal caliber. No evidence of filling defect to suggest pulmonary em bolus. VENOUS SYSTEM: Unremarkable. Lungs/pleura: Moderate paraseptal emphysema changes and centrilobular emphysema changes. There is api arnoldo scarring present. Scattered scarring is seen throughout the lungs. No focal consolidation, pneumo thorax or pleural effusion. Heart: Within normal limits. There is coronary artery calcifications. Air emboli within the right victoriano tricle and pulmonary trunk. Mediastinum: No gross evidence of adenopathy. Lower Neck: No significant findings. Abdomen: Liver: Unremarkable. Gallbladder and Bile ducts: Unremarkable. Pancreas: Unremarkable. Spleen: Unremarkable. Adrenal glands: Unremarkable. Kidneys and Ureters: Unremarkable. No hydronephrosis. Bladder: Unremarkable. Reproductive: Prostate gland is enlarged measuring up to 5.5 cm. Stomach and Bowel: Scattered colonic diverticula. No evidence of bowel obstruction. Small hiatal garrett ia. Peritoneum: No evidence of pneumoperitoneum, free fluid, or adenopathy. Postsurgical changes in the retroperitoneum with multiple surgical clips present. Lung aorta Musculoskeletal: The osseous structures appear intact. Lymph nodes: No evidence of lymphadenopathy. Abdominal wall/soft tissues: Small fat-containing umbilical hernia. Left fat-containing inguinal garrett ia. IMPRESSION: 1. No evidence for aortic dissection or aneurysmal dilation. 2. Ascending thoracic aorta ectasia up to 4.1 cm. 3. Moderate coronary artery atherosclerosis. 4. Moderate atherosclerosis of the arterial vasculature. 5. Prostatomegaly, correlate with serum PSA. 6. Moderate paraseptal emphysema. 7. No evidence for lymphadenopathy to suggest recurrence.
== END | disposition home or self-care (01) ==
LOC: RADCTMAIN 08:57
PROVIDERS: ATTEND Family Medicine
DX: I25.10 Atherosclerotic heart disease of native coronary artery without angina pectoris (principal); I71.20 Thoracic aortic aneurysm, without rupture, unspecified; N40.0 Benign prostatic hyperplasia without lower urinary tract symptoms; J43.2 Centrilobular emphysema
CPT/HCPCS: 71275; 74174; Q9967

== ENCOUNTER → 2022-11-02 | Outpatient (CLI) | payer MEDICARE ==
--- NOTE | 2022-11-02 09:52 | CT ---
EXAMINATION TYPE: CT brain wo con DATE OF EXAM: 11/02/2022 COMPARISON: 04/24/2022 HISTORY: Memory changes. CT DLP: 1077.7 mGycm Automated exposure control for dose reduction was used. FINDINGS: Intracranial atherosclerotic changes. Prominent cisterna magna. Mild generalized degenerative change. Hypoattenuation the white matter most typical remote ischemic white matter change. Calvarium is inta ct. There are changes of bilateral mastoiditis. Orbits are symmetric. Craniocervical junction maintai perez. Sella turcica normal. IMPRESSION: MILD DEGENERATIVE AND REMOTE ISCHEMIC WHITE MATTER CHANGE.
== END | disposition home or self-care (01) ==
LOC: RADCTMAIN 09:12
PROVIDERS: ATTEND Family Medicine
DX: I67.82 Cerebral ischemia (principal); R41.3 Other amnesia; R90.82 White matter disease, unspecified
CPT/HCPCS: 70450

== ENCOUNTER → 2023-04-03 | Outpatient (CLI) | payer MEDICARE ==
[2023-04-03 13:25] LABS: ALT 21 U/L (10-49); AST 19 U/L (14-35); Albumin 4.7 g/dL (3.8-4.9); Albumin/Globulin Ratio 1.81 Ratio (1.60-3.17); Alkaline Phosphatase 90 U/L (41-126); Bilirubin, Conjugated <0.20 mg/dL (0.20-0.40); Bilirubin,Unconjugated >0.30 mg/dL (0.20-1.00); Globulin 2.6 g/dL (1.6-3.3); T4, Free (Free Thyroxine) 1.61 ng/dL (0.80-1.80); Total Bilirubin 0.5 mg/dL (0.3-1.2); Total Protein 7.3 g/dL (6.2-8.2)
== END | disposition home or self-care (01) ==
LOC: LABWHC1 07:51
PROVIDERS: ATTEND Internal Medicine Interventional Cardiology
DX: Z51.81 Encounter for therapeutic drug level monitoring (principal); Z79.899 Other long term (current) drug therapy
CPT/HCPCS: 36415; 80076; 84439; 84443

== ENCOUNTER → 2023-04-23 | Outpatient (CLI) | payer MEDICARE ==
[2023-04-23 18:47] LABS: HCT 46.5 % (39.6-50.0); HGB 15.4 g/dL (13.0-17.0); MCH 29.1 pg (27.0-32.0); MCHC 33.1 g/dL (32.0-37.0); MCV 87.9 FL (80.0-97.0); Mean Platelet Volume 12.7 FL (9.5-12.2); NRBC Per 100 WBC 0 X 10*3/uL (0.00-0.01); Platelet Count 147 X 10*3/uL (140-440); RBC 5.29 X 10*6/uL (4.40-5.60); RDW 15.4 % (11.5-14.5); WBC 6.74 X 10*3/uL (4.50-10.00)
[2023-04-23 19:34] LABS: Appearance,Urine Clear (Clear); Bilirubin,Urine Negative (Negative); Blood,Urine Negative (Negative); Color,Urine Yellow (Yellow); Ketones,Urine Negative (Negative); Nitrite,Urine Negative (Negative); Specific Gravity,Urine 1.014 (1.001-1.030); Urobilinogen,Urine 0.2 E.U./DL
[2023-04-23 20:02] LABS: ALT 15 U/L (10-49); AST 20 U/L (14-35); Albumin 4.7 g/dL (3.8-4.9); Albumin/Globulin Ratio 1.68 Ratio (1.60-3.17); Alkaline Phosphatase 92 U/L (41-126); BUN/Creat Ratio 9.46 Ratio (12.00-20.00); Blood Urea Nitrogen 12.3 mg/dL (9.0-27.0); Calcium 10.1 mg/dL (8.7-10.3); Carbon Dioxide 21.5 mmol/L (21.6-31.8); Chloride 102 mmol/L (96-109); Chol/HDL Ratio 2.21 Ratio; Globulin 2.8 g/dL (1.6-3.3); Glucose 84 mg/dL (70-110); LDL Cholesterol,Calculated 55.4 mg/dL (0.0-131.0); Potassium 4.3 mmol/L (3.5-5.5); Prostate Specific Antigen 0.88 ng/mL (0.000-4.500); Sodium 141 mmol/L (135-145); Total Bilirubin 0.7 mg/dL (0.3-1.2); Total Protein 7.5 g/dL (6.2-8.2)
== END | disposition home or self-care (01) ==
LOC: LABWHC1 09:53
PROVIDERS: ATTEND Family Medicine
DX: Z00.01 Encounter for general adult medical examination with abnormal findings (principal); I10 Essential (primary) hypertension; I48.0 Paroxysmal atrial fibrillation; E78.5 Hyperlipidemia, unspecified; N40.0 Benign prostatic hyperplasia without lower urinary tract symptoms
CPT/HCPCS: 36415; 80053; 80061; 81003; 83036; 84153; 84443; 85027

== ENCOUNTER 2023-07-26 10:43 | Inpatient (IN) | payer MEDICARE ==
--- NOTE | 2023-07-26 10:50 | ED ---
SOB HPI - General Source: patient, RN notes reviewed Mode of arrival: ambulatory Limitations: no limitations - History of Present Illness MD Complaint: shortness of breath <Sera Espinoza - Last Filed: 07/26/23 10:46> - General Source: patient, RN notes reviewed, old records reviewed <Lyle Carlisle - Last Filed: 07/26/23 14:16> - General Chief Complaint: Shortness of Breath Stated Complaint: SOB Time Seen by Provider: 07/26/23 10:46 - History of Present Illness Initial Comments: Quick Note: This is a 63 year old male who presents to the emergency department for shortness of breath. States that he has felt short of breath over the last 4-5 days and he went to urgent care at [facility] and was told that he had a partially collapsed lung and he was instructed to come to the emergency department for evaluation. He does have some left sided chest pain. (Sera Espinoza) Patient is a 63-year-old male who presents emergency department for shortness of breath. For the last 5 days has been having worsening shortness of breath. Was worked up at another facility and had chest x-ray completed. Was called by his PCP to come here for pneumothorax. Has a disc but we did repeat chest x-ray upon arrival. Has no other acute complaints. Thought it was a COPD. No obvious trauma. He is on Xarelto for atrial fibrillation. Denies any fevers, chills. Does endorse a cough. Evaluated the patient when he was placed in trauma bay 1. Only seen as a quick note. (Lyle Carlisle) - Related Data Home Medications Medication Instructions Recorded Confirmed Aspirin 81 mg PO DAILY 07/05/21 07/26/23 Pantoprazole [Protonix] 40 mg PO DAILY 07/05/21 07/26/23 Amiodarone HCl [Pacerone] 100 mg PO DAILY 07/26/23 07/26/23 NIFEdipine XL [Procardia Xl] 30 mg PO DAILY 07/26/23 07/26/23 Rivaroxaban [Xarelto] 20 mg PO HS 07/26/23 07/26/23 Previous Rx's Medication Instructions Recorded Atorvastatin [Lipitor] 80 mg PO HS #90 tab 12/11/19 Allergies Allergy/AdvReac Type Severity Reaction Status Date / Time apixaban [From Eliquis] Allergy LIPS AND Verified 07/26/23 11:30 TONGUE NUMBNESS azithromycin [From Zithromax] Allergy LIPS AND Verified 07/26/23 11:30 TONGUE NUMBNESS cephalexin [From Keflex] Allergy LIPS AND Verified 07/26/23 11:30 TONGUE NUMBNESS dexamethasone [From Decadron] Allergy LIPS AND Verified 07/26/23 11:30 TONGUE NUMBNESS digoxin Allergy LIPS AND Verified 07/26/23 11:30 TONGUE NUMBNESS omeprazole [From Prilosec] Allergy LIPS AND Verified 07/26/23 11:30 TONGUE NUMBNESS Review of Systems ROS Other: All systems not noted in ROS Statement are negative. <Sera Espinoza - Last Filed: 07/26/23 10:46> ROS Other: All systems not noted in ROS Statement are negative. <Lyle Carlisle - Last Filed: 07/26/23 14:16> ROS Statement: Those systems with pertinent positive or pertinent negative responses have been documented in the HPI. Review of Systems: CONST: Denies fever EYES: Denies blurry vision ENT: Denies nasal congestion C/V: Denies Chest pain RESP: Endorses shortness of breath GI: Denies abdominal pain : Denies dysuria SKIN: Denies rash. MSK: Denies joint pain. NEURO: Denies headache (Lyle Carlisle) Past Medical History Past Medical History: Atrial Fibrillation, Cancer, GERD/Reflux, Hyperlipidemia, Hypertension, Osteoarthritis (OA) Additional Past Medical History / Comment(s): Hx Testicular cancer in 1981, new bout of A-fib in post-op after recent colonoscopy, History of Any Multi-Drug Resistant Organisms: None Reported Past Surgical History: Heart Catheterization With Stent, Orthopedic Surgery Additional Past Surgical History / Comment(s): Right shoulder surgery, right leg surgery with clayton in femur, colonoscopy , Past Anesthesia/Blood Transfusion Reactions: No Reported Reaction Date of Last Stent Placement:: 12/10/19 Smoking Status: Current every day smoker - Past Family History Father Family Medical History: Cancer Additional Family Medical History / Comment(s): Brain tumor, lung cancer. Mother Family Medical History: Cancer Additional Family Medical History / Comment(s): "Female cancer" <Sera Espinoza - Last Filed: 07/26/23 10:46> General Exam <Sera Espinoza - Last Filed: 07/26/23 10:46> <Lyle Carlisle - Last Filed: 07/26/23 14:16> - General Exam Comments Initial Comments: Visual Physical Exam Vital signs reviewed General: Well-appearing, nontoxic, no acute distress. Head: Normocephalic, atraumatic Eyes: PERRLA, EOMI ENT: Airway patent Chest: Nonlabored breathing Skin: No visual rash, normal skin tone Neuro: Alert and oriented 3 Musculoskeletal: No gross abnormalities (Sera Espinoza) General: Appears in mild distress secondary to increased work of breathing. HEAD: Normal with no signs of head trauma. EYES: EOMI ENT: Hearing grossly intact, normal oropharynx. RESPIRATORY: No breath sounds auscultated over the left chest. Concern for pneumothorax. No hypoxia at this time. C/V: Regular rate and rhythm. Peripheral pulses 2+ intact throughout. ABD: Abd is soft, nontender, nondistended EXT: Normal range of motion, no obvious deformity SKIN: No rashes or lesions observed on exposed skin. NEURO: Alert and oriented x 4. (Lyle Carlisle) Course Vital Signs 07/26/23 07/26/23 07/26/23 11:01 11:03 11:30 Temperature 97.8 F Pulse Rate 52 L 60 Respiratory 18 16 20 Rate Blood Pressure 144/83 119/76 O2 Sat by Pulse 99 98 Oximetry 07/26/23 07/26/23 07/26/23 11:48 11:53 11:55 Temperature Pulse Rate 59 L 61 60 Respiratory 16 16 16 Rate Blood Pressure 142/68 142/86 142/68 O2 Sat by Pulse 100 100 96 Oximetry 07/26/23 07/26/23 07/26/23 11:59 12:03 12:05 Temperature Pulse Rate 60 60 60 Respiratory 16 16 20 Rate Blood Pressure 128/87 138/83 138/83 O2 Sat by Pulse 95 99 99 Oximetry 07/26/23 07/26/23 07/26/23 12:06 12:16 13:00 Temperature Pulse Rate 63 61 60 Respiratory 16 Rate Blood Pressure 117/60 O2 Sat by Pulse 95 Oximetry Procedures - Chest Tube Insertion Consent Obtained: written consent Side of Procedure: left Indication: Pneumothorax Placed on monitor/pulse oximetry: Yes Site Prep: Chloroprep Local Anesthesia: Lidocaine 2% Amount (mLs): 5 Insertion Site: Other (2nd intercostal space, midaxillary line) Scalpel: #11 Tube Size (Belarusian): Other (thoravent placed.) Returns: Air Attached to Suction: Yes Type of Suction: Pleuravac Repeat X-ray Results: Lung Inflated Patient Tolerated Procedure: well <Lyle Carlisle - Last Filed: 07/26/23 14:16> Medical Decision Making <Sera Espinoza - Last Filed: 07/26/23 10:46> - Lab Data Result diagrams: 07/26/23 11:32 07/26/23 11:32 - EKG Data -: EKG Interpreted by Me <Lyle Carlisle - Last Filed: 07/26/23 14:16> - Medical Decision Making I performed the QuickNote portion of this chart. Signed Sera Espinoza PA-C. (Sera Espinoza) Was pt. sent in by a medical professional or institution ([facility], [facility], urgent care, hospital, or assisted...) When possible be specific @ -Sent from urgent care and PCP over concern for left pneumothorax. Did you speak to anyone other than the patient for history (EMS, parent, family, police, friend...)? What history was obtained from this source @ -No Did you review nursing and triage notes (agree or disagree)? Why? @ -I reviewed and agree with nursing and triage notes Were old charts reviewed (outside hosp., previous admission, EMS record, old EKG, old radiological studies, urgent care reports/EKG's, assisted records)? Report findings @ -No old charts were reviewed Differential Diagnosis (chest pain, altered mental status, abdominal pain women, abdominal pain men, vaginal bleeding, weakness, fever, dyspnea, syncope, headache, dizziness, GI bleed, back pain, seizure, CVA, palpatations, mental health, musculoskeletal)? @ -Pneumothorax, "COPD, pneumonia. This list is not all inclusive. EKG interpreted by me (3pts min.). @ -As above X-rays interpreted by me (1pt min.). @ -Chest x-ray shows 50% left-sided pneumothorax. Repeat chest x-ray after Thora vent placed shows minimal residual pneumothorax with reexpansion of the lung. CT interpreted by me (1pt min.). @ -None done U/S interpreted by me (1pt. min.). @ -None done What testing was considered but not performed or refused? (CT, X-rays, U/S, labs)? Why? @ -None What meds were considered but not given or refused? Why? @ -None Did you discuss the management of the patient with other professionals (professionals i.e. Dr., PA, [employer], lab, RT, psych nurse, manager social responsibility, corporate ethics officer, teacher, emergency communications officer, registered nurse hh case manager)? Give summary @ -Discussed with on-call pulmonology, Dr. Davila who states he will manage the chest tube at this time. Was in agreement with plan for admission. Spoke with the admitting physician, Dr. Puri who accepted the admission. Was smoking cessation discussed for >3mins.? @ -No Was critical care preformed (if so, how long)? @ -Yes, 31 minutes. Multiple reevaluations throughout his stay. Were there social determinants of health that impacted care today? How? (Homelessness, low income, unemployed, alcoholism, drug addiction, transportation, low edu. Level, literacy, decrease access to med. care, care home, rehab)? @ -No Was there de-escalation of care discussed even if they declined (Discuss DNR or withdrawal of care, Hospice)? DNR status @ -No What co-morbidities impacted this encounter? (DM, HTN, Smoking, COPD, CAD, Cancer, CVA, ARF, Chemo, Hep., AIDS, mental health diagnosis, sleep apnea, morbid obesity)? @ -COPD Was patient admitted / discharged? Hospital course, mention meds given and route, prescriptions, significant lab abnormalities, going to OR and other per tinent info. @ -Patient presents for suspected pneumothorax. I do not have access to the imaging at this time and therefore repeat chest x-ray will be obtained. I evaluated patient T1 when I was made aware of him. Vital signs currently within acceptable limits. Exam remarkable for decreased breath sounds over left lung field. Chest x-ray did support 50% pneumothorax. Patient was also hypoglycemic and was administered food after chest tube placement and we will recheck. EKG shows no signs of acute ischemia. Labs unremarkable. Patient is on Xarelto. I did discuss risks and benefits of completing chest tube placement and he does consent to placement. See additional note for further details. He tolerated the procedure well. We did do moderate sedation with respiratory therapist. Was given Versed as a medication. Thora vent placed successfully was placed to suction with atrium. Repeat chest x-ray following procedure shows minimal residual pneumothorax with reexpansion of the lung. Vital signs remained within acceptable limits. He is feeling improved at this time. He wi ll be admitted. Spoke with Dr. Davila of pulmonology who accepted the consultation and was in agreement with plan for management. States he will manage the chest tube. I spoke with admitting physician Dr. Puri who accepted the admission. Undiagnosed new problem with uncertain prognosis? @ -No Drug Therapy requiring intensive itoring for toxicity (Heparin, Nitro, Insulin, Cardizem)? @ -No Were any procedures done? @ -Tube thoracostomy placement for pneumothorax Diagnosis/symptom? @ -Pneumothorax status post Thora vent placement. Acute, or Chronic, or Acute on Chronic? @ -Acute Uncomplicated (without systemic symptoms) or Complicated (systemic symptoms)? @ -Complicated Side effects of treatment? @ -No Exacerbation, Progression, or Severe Exacerbation? @ -No Poses a threat to life or bodily function? How? (Chest pain, [place], [place], pneumonia, PE, COPD, DKA, ARF, appy, cholecystitis, CVA, Diverticulitis, Homicidal, Suicidal, threat to staff... and all critical care pts) @ -Yes (Lyle Carlisle) - Lab Data Lab Results 07/26/23 07/26/23 07/26/23 Range/Units 11:32 11:32 11:32 WBC 9.6 (3.8-10.6) k/uL RBC 4.64 (4.30-5.90) m/uL Hgb 13.7 (13.0-17.5) gm/dL Hct 41.7 (39.0-53.0) % MCV 89.8 (80.0-100.0) fL MCH 29.6 (25.0-35.0) pg MCHC 32.9 (31.0-37.0) g/dL RDW 14.6 (11.5-15.5) % Plt Count 162 (150-450) k/uL MPV 11.2 Neutrophils % 76 % Lymphocytes % 13 % Monocytes % 6 % Eosinophils % 3 % Basophils % 0 % Neutrophils # 7.3 (1.3-7.7) k/uL Lymphocytes # 1.3 (1.0-4.8) k/uL Monocytes # 0.6 (0-1.0) k/uL Eosinophils # 0.3 (0-0.7) k/uL Basophils # 0.0 (0-0.2) k/uL PT 11.6 (10.0-12.5) sec INR 1.1 (<1.2) APTT 30.0 (22.0-30.0) sec Sodium 137 (137-145) mmol/L Potassium 4.2 (3.5-5.1) mmol/L Chloride 107 (98-107) mmol/L Carbon Dioxide 18 L (22-30) mmol/L Anion Gap 12 mmol/L BUN 17 (9-20) mg/dL Creatinine 1.16 (0.66-1.25) mg/dL Est GFR (CKD-EPI)AfAm 79 (>60 ml/min/1.73 sqM) Est GFR (CKD-EPI)NonAf 68 (>60 ml/min/1.73 sqM) Glucose 60 L (74-99) mg/dL Calcium 9.2 (8.4-10.2) mg/dL Magnesium 2.4 H (1.6-2.3) mg/dL Total Bilirubin 1.0 (0.2-1.3) mg/dL AST 27 (17-59) U/L ALT 17 (4-49) U/L Alkaline Phosphatase 84 (38-126) U/L Total Protein 7.2 (6.3-8.2) g/dL Albumin 4.6 (3.5-5.0) g/dL - EKG Data EKG Comments: 12-lead Electrocardiogram Interpretation Note EKG was reviewed and interpreted by myself. 12-lead ECG performed at 11.4 is interpreted by me as revealing sinus bradycardia at a rate of 54 beats per minute. Indeterminate axis. NV interval is 166 ms, QRS duration is 101 ms, QTc is 401 ms. Good amount of baseline artifact present.. There were no ST or T wave abnormalities to suggest myocardial ischemia or injury. R wave progression across the precordium was satisfactory. By my interpretation this EKG is non- diagnostic for acute ischemia. (Lyle Carlisle) Critical Care Time Critical Care Time: Yes Total Critical Care Time: 31 <Lyle Carlisle - Last Filed: 07/26/23 14:16> Disposition <Sera Espinoza - Last Filed: 07/26/23 10:46> Time of Disposition: 12:10 <Lyle Carlisle - Last Filed: 07/26/23 14:16> Clinical Impression: Pneumothorax, S/P chest tube placement Disposition: ADMITTED IP TO THIS [facility] Condition: Serious Referrals: Amauri Lacey DO [Primary Care Provider] - 1-2 days
--- NOTE | 2023-07-26 11:31 | XR ---
EXAMINATION TYPE: XR chest 2V DATE OF EXAM: 07/26/2023 COMPARISON: 05/04/22 HISTORY: Shortness of breath TECHNIQUE: Frontal and lateral views of the chest are obtained. FINDINGS: Large left-sided pneumothorax noted with pleural parenchymal distance of 4.4 cm at the mid lung. Pneu mothorax is estimated at 50%. No evidence for infiltrate. No evidence for atelectasis. Heart size is stable. Mediastinal structures are stable and grossly unremarkable. No evidence for hilar prominence. Degenerative changes dorsal spine. IMPRESSION: 1. 50% left-sided pneumothorax. A [place] critical message alert has been initiated for Nasir Guerra MD via the [employer] System on 07/26/2023 11:29 AM. This message alert has been sent to Nasir Guerra MD via the preferences provided by the clinician for the receipt of Radiology Critical Findings. Message ID [id number].
[2023-07-26 11:52] LABS: Basophils % (A) 0 %; Eosinophils # (A) 0.3 k/uL (0-0.7); Eosinophils % (A) 3 %; HCT 41.7 % (39.0-53.0); HGB 13.7 gm/dL (13.0-17.5); Lymphocytes # (A) 1.3 k/uL (1.0-4.8); Lymphocytes % (A) 13 %; MCH 29.6 pg (25.0-35.0); MCHC 32.9 g/dL (31.0-37.0); MCV 89.8 fL (80.0-100.0); Mean Platelet Volume 11.2; Monocytes # (A) 0.6 k/uL (0-1.0); Monocytes % (A) 6 %; Neutrophils # (A) 7.3 k/uL (1.3-7.7); Neutrophils % (A) 76 %; Platelet Count 162 k/uL (150-450); RBC 4.64 m/uL (4.30-5.90); RDW 14.6 % (11.5-15.5); WBC 9.6 k/uL (3.8-10.6)
[2023-07-26] MEDS: LIDOCAINE 2% INJ 20 MG/ML (20 ML MDV) SQ STA (11:54)
[2023-07-26] MEDS: MIDAZOLAM 2 MG/2 ML VIAL IV ONE (11:54)
[2023-07-26 11:56] LABS: ALT 17 U/L (4-49); AST 27 U/L (17-59); African American GFR (CKD) 79 (>60 ml/min/1.73 sqM); Albumin 4.6 g/dL (3.5-5.0); Alkaline Phosphatase 84 U/L (38-126); Anion Gap 12 mmol/L; Blood Urea Nitrogen 17 mg/dL (9-20); Calcium 9.2 mg/dL (8.4-10.2); Carbon Dioxide 18 mmol/L (22-30); Chloride 107 mmol/L (98-107); Glucose 60 mg/dL (74-99); Magnesium 2.4 mg/dL (1.6-2.3); Non-African American GFR(CKD) 68 (>60 ml/min/1.73 sqM); Potassium 4.2 mmol/L (3.5-5.1); Sodium 137 mmol/L (137-145); Total Protein 7.2 g/dL (6.3-8.2)
[2023-07-26] MEDS: IPRATROPIUM-ALBUTEROL 3 ML NEB INHALATION STA ×2 (12:05)
[2023-07-26 12:19] LABS: INR 1.1 (<1.2); Prothrombin Time 11.6 sec (10.0-12.5)
[2023-07-26] MEDS ORDERED: NALOXONE 0.4 MG/ML 1 ML VIAL IV PRN (12:22)
[2023-07-26] MEDS: SODIUM CHLORIDE 0.9% 1,000 ML IV SCH (12:54)
--- NOTE | 2023-07-26 13:39 | XR ---
EXAMINATION TYPE: XR chest 1V portable DATE OF EXAM: 07/26/2023 HISTORY: Pneumothorax follow-up COMPARISON: 07/26/2023 TECHNIQUE: Single view of the chest is submitted. FINDINGS: Left-sided chest tube is noted to be in place. Other small residual pneumothorax seen significant imp rovement noted. The right lung is clear. There is no evidence for focal infiltrate. The heart is stable. Hilar and mediastinal structures are within normal limits. Degenerative changes are seen of the dorsal spine. IMPRESSION: 1. Left-sided chest tube is noted to be in place. Other small residual pneumothorax seen significant improvement noted. The right lung is clear.
[2023-07-26 14:10] LABS: Glucose,Whole Blood 82 mg/dL (70-110)
[2023-07-26] MEDS: MORPHINE SULFATE 4 MG/ML SYRINGE IV PRN (15:08)
--- NOTE | 2023-07-26 21:46 | P.HPIM ---
History of Present Illness H&P Date: 07/26/23 Chief Complaint: Short of breath Pleasant 63-year-old patient, follows with Dr. Lacey. Chronic stable medical condition include atrial fibrillation, COPD, GERD, hypertension, hyperlipidemia, osteoarthritis, testicular cancer 98 2, CAD with stent. Smoker. Patient about 4 days ago became suddenly short of breath. Symptoms progressed per his progress decided to come in. He then had gone to [facility] he was told he has partially collapsed lung chest x-ray done by his PCP resulted him finding out he had pneumothorax Thora vent is placed to suction. On the left side. Also short of breath. Smoker. Review of systems: GEN.: Tired EYES: None HEENT: None NECK: None RESPIRATORY: Short of breath e CARDIOVASCULAR: None GASTROINTESTINAL: None GENITOURINARY: None MUSCULOSKELETAL: None LYMPHATICS: None HEMATOLOGICAL: None PSYCHIATRY: None NEUROLOGICAL: None Social history: Drinks 2-3 beers a day. . Retired. Smoking for long time currently 3 packs a week Physical examination: VITAL SIGNS: 99, 60, 18, 108 x 72, 98% on 2 L GENERAL: BMI 20.5, thin built laying in bed tired short of breath. EYES: Pupils equal. Conjunctiva simran l. HEENT: External appearance of nose and ears normal, oral cavity grossly normal. NECK: JVD not raised; masses not palpable. HEART: First and second heart sounds are normal; no edema. LUNGS: Respiratory rate increased, diminished breath sounds wheezing, left anterior chest wall Thora-vent to suction. ABDOMEN: Soft, nontender, liver spleen not palpable, no masses palpable. PSYCH: Alert and oriented x3; mood and affect simran l. MUSCULOSKELETAL:No Clubbing/cyanosis;muscles-grossly intact NEUROLOGICAL: Cranial nerves grossly intact; no facial asymmetry, power and sensation grossly intact. LYMPHATICS: No lymph nodes palpable in the axilla and neck INVESTIGATIONS, reviewed in the clinical context: Chest x-ray film personally reviewed by me-initial film showed left-sided pneumothorax EKG tracing personally reviewed by me-normal sinus rhythm. July 26, 2023: White count 9.6 hemoglobin 13.7 platelets 162 sodium 137 potassium 4.2 creatinine 1.16 Assessment plan: -Spontaneous pneumothorax in a patient with advanced COPD Left-sided Thora-vent to suction was placed -COPD and a current smoker DuoNeb. Nebulized Pulmicort -Hyperlipidemia Lipitor 80 mg nightly -Paroxysmal atrial fibrillation Currently in sinus rhythm. Amiodarone. Xarelto. -Chronic nicotine dependence, cigarette smoker -CAD with a prior history of stent Aspirin -GERD Protonix Care was discussed with the patient. Questions answered. Pulmonary consulted. Past Medical History Past Medical History: Atrial Fibrillation, Cancer, COPD, GERD/Reflux, Hype rlipidemia, Hypertension, Osteoarthritis (OA) Additional Past Medical History / Comment(s): Hx Testicular cancer in 1981, new bout of A-fib in post-op after recent colonoscopy, History of Any Multi-Drug Resistant Organisms: None Reported Past Surgical History: Heart Catheterization With Stent, Orthopedic Surgery Additional Past Surgical History / Comment(s): Right shoulder surgery, right leg surgery with clayton in femur, colonoscopy , Past Anesthesia/Blood Transfusion Reactions: No Reported Reaction Date of Last Stent Placement:: 12/10/19 Past Psychological History: No Psychological Hx Reported Smoking Status: Current every day smoker Past Alcohol Use History: Daily Additional Past Alcohol Use History / Comment(s): Has been smoking since 23 yrs old, 1 PPD. 2-3 BEERS DAILY Past Drug Use History: Marijuana Additional Drug Use History / Comment(s): daily marijuana use - Past Family History Father Family Medical History: Cancer Additional Family Medical History / Comment(s): Brain tumor, lung cancer. Mother Family Medical History: Cancer Additional Family Medical History / Comment(s): "Female cancer" Medications and Allergies Home Medications Medication Instructions Recorded Confirmed Type Atorvastatin [Lipitor] 80 mg PO HS #90 tab 12/11/19 07/26/23 Rx Aspirin 81 mg PO DAILY 07/05/21 07/26/23 History Pantoprazole [Protonix] 40 mg PO DAILY 07/05/21 07/26/23 History Amiodarone HCl [Pacerone] 100 mg PO DAILY 07/26/23 07/26/23 History NIFEdipine XL [Procardia Xl] 30 mg PO DAILY 07/26/23 07/26/23 History Rivaroxaban [Xarelto] 20 mg PO HS 07/26/23 07/26/23 History Allergies Allergy/AdvReac Type Severity Reaction Status Date / Time apixaban [From Eliquis] Allergy LIPS AND Verified 07/26/23 11:30 TONGUE NUMBNESS azithromycin [From Zithromax] Allergy LIPS AND Verified 07/26/23 11:30 TONGUE NUMBNESS cephalexin [From Keflex] Allergy LIPS AND Verified 07/26/23 11:30 TONGUE NUMBNESS dexamethasone [From Decadron] Allergy LIPS AND Verified 07/26/23 11:30 TONGUE NUMBNESS digoxin Allergy LIPS AND Verified 07/26/23 11:30 TONGUE NUMBNESS omeprazole [From Prilosec] Allergy LIPS AND Verified 07/26/23 11:30 TONGUE NUMBNESS Physical Exam Vitals: Vital Signs Temp Pulse Pulse Resp BP Pulse Ox 07/26/23 19:40 99.0 F 60 18 108/72 98 07/26/23 17:59 62 20 07/26/23 15:00 60 20 119/70 98 07/26/23 14:00 65 20 135/89 99 07/26/23 13:00 60 16 117/60 95 07/26/23 12:16 61 07/26/23 12:06 63 07/26/23 12:05 60 20 138/83 99 07/26/23 12:03 60 16 138/83 99 07/26/23 11:59 60 16 128/87 95 07/26/23 11:55 60 16 142/68 96 07/26/23 11:53 61 16 142/86 100 07/26/23 11:48 59 L 16 142/68 100 07/26/23 11:30 20 07/26/23 11:03 60 16 119/76 98 07/26/23 11:01 97.8 F 52 L 18 144/83 99 Intake and Output 07/26/23 07/26/23 07/26/23 06:59 14:59 22:59 Intake Total 118 Balance 118 Intake: Oral 118 Other: Weight 72.575 kg 72.575 kg Results CBC & Chem 7: 07/26/23 11:32 07/26/23 11:32 Labs: Abnormal Lab Results - Last 24 Hours (Table) 07/26/23 Range/Units 11:32 Carbon Dioxide 18 L (22-30) mmol/L Glucose 60 L (74-99) mg/dL Magnesium 2.4 H (1.6-2.3) mg/dL
[2023-07-26] MEDS: RIVAROXABAN 20 MG TAB PO SCH (22:04)
[2023-07-26] MEDS: ATORVASTATIN 80 MG TAB PO SCH (22:05)
[2023-07-26] MEDS: BUDESONIDE 1 MG/2 ML NEBU INHALATION SCH (22:22)
[2023-07-26] MEDS: IPRATROPIUM-ALBUTEROL 3 ML NEB INHALATION SCH (22:22)
[2023-07-26] MEDS: NICOTINE 14MG/24HR PATCH TRANSDERM SCH (22:24)
--- NOTE | 2023-07-26 23:37 | P.CNPUL ---
History of Present Illness Consult date: 07/26/23 Reason for consult: pneumothorax History of present illness: This is a 63-year-old male patient who came into the emergency department with a spontaneous large left-sided pneumothorax. The patient acutely became short of breath this time was few days back and it progressively got worse. He came into the emergency room he was found to have a large left-sided pneumothorax in the Thora vent was inserted and a subsequent chest x-ray was done following the catheter insertion showed complete reexpansion of the left-sided pneumothorax without any residual abnormalities. The patient remains hemodynamically stable and the patient is currently on 2 L of oxygen by nasal cannula with a pulse ox of 99%. No chest pain. No trauma to the chest. No previous history of pneumothoraces. The patient has history of chronic smoking. The patient has previous history of paroxysmal atrial fibrillation, ascending thoracic aortic aneurysm and previous history of testicular cancer. Also known to have COPD secondary to smoking. His current cardiac rhythm has sinus. His most recent low-dose CAT scan of the chest that was done on 11/10/2022 showed stable ascending thoracic aortic aneurysm measuring 4.3 cm without any significant pulmonary nodules. There is evidence of moderate to severe background COPD/emphysema. Review of Systems Constitutional: Reports as per HPI Eyes: denies as per HPI, denies blurred vision, denies bulging eye, denies decreased vision, denies diplopia, denies discharge, denies dry eye, denies irritation, denies itching, denies pain, denies photophobia, denies loss of peripheral vision, denies loss of vision, denies tunnel vision/blind spots Ears: deny: decreased hearing, ear discharge, earache, tinnitus Ears, nose, mouth and throat: Reports as per HPI Breasts: absent: as per HPI, gynecomastia Cardiovascular: Reports decreased exercise tolerance, Reports dyspnea on exertion Respiratory: Reports dyspnea Gastrointestinal: Reports as per HPI Musculoskeletal: absent: ankle pain, ankle stiffness, ankle swelling, as per HPI, elbow pain, elbow stiffness, elbow swelling, foot pain, foot stiffness, foot swelling, hand pain, hand stiffness, hand swelling, hip pain, hip stiffnes s, hip swelling, knee pain, knee stiffness, knee swelling, shoulder pain, shoulder stiffness, shoulder swelling, wrist pain, wrist stiffness, wrist swelling Endocrine: Reports as per HPI Hematologic/Lymphatic: Reports as per HPI Allergic/Immunologic: Reports as per HPI Past Medical History Past Medical History: Atrial Fibrillation, Cancer, COPD, GERD/Reflux, Hyperlipidemia, Hypertension, Osteoarthritis (OA) Additional Past Medical History / Comment(s): Hx Testicular cancer in 1981, new bout of A-fib in post-op after recent colonoscopy, History of Any Multi-Drug Resistant Organisms: None Reported Past Surgical History: Heart Catheterization With Stent, Orthopedic Surgery Additional Past Surgical History / Comment(s): Right shoulder surgery, right leg surgery with clayton in femur, colonoscopy , Past Anesthesia/Blood Transfusion Reactions: No Reported Reaction Date of Last Stent Placement:: 12/10/19 Past Psychological History: No Psychological Hx Reported Smoking Status: Current every day smoker - Past Family History Father Family Medical History: Cancer Additional Family Medical History / Comment(s): Brain tumor, lung cancer. Mother Family Medical History: Cancer Additional Family Medical History / Comment(s): "Female cancer" Medications and Allergies Home Medications Medication Instructions Recorded Confirmed Type Atorvastatin [Lipitor] 80 mg PO HS #90 tab 12/11/19 07/26/23 Rx Aspirin 81 mg PO DAILY 07/05/21 07/26/23 History Pantoprazole [Protonix] 40 mg PO DAILY 07/05/21 07/26/23 History Amiodarone HCl [Pacerone] 100 mg PO DAILY 07/26/23 07/26/23 History NIFEdipine XL [Procardia Xl] 30 mg PO DAILY 07/26/23 07/26/23 History Rivaroxaban [Xarelto] 20 mg PO HS 07/26/23 07/26/23 History Allergies Allergy/AdvReac Type Severity Reaction Status Date / Time apixaban [From Eliquis] Allergy LIPS AND Verified 07/26/23 11:30 TONGUE NUMBNESS azithromycin [From Zithromax] Allergy LIPS AND Verified 07/26/23 11:30 TONGUE NUMBNESS cephalexin [From Keflex] Allergy LIPS AND Verified 07/26/23 11:30 TONGUE NUMBNESS dexamethasone [From Decadron] Allergy LIPS AND Verified 07/26/23 11:30 TONGUE NUMBNESS digoxin Allergy LIPS AND Verified 07/26/23 11:30 TONGUE NUMBNESS omeprazole [From Prilosec] Allergy LIPS AND Verified 07/26/23 11:30 TONGUE NUMBNESS Physical Exam Vitals: Vital Signs Temp Pulse Resp BP Pulse Ox 07/26/23 15:00 60 20 119/70 98 07/26/23 14:00 65 20 135/89 99 07/26/23 13:00 60 16 117/60 95 07/26/23 12:16 61 07/26/23 12:06 63 07/26/23 12:05 60 20 138/83 99 07/26/23 12:03 60 16 138/83 99 07/26/23 11:59 60 16 128/87 95 07/26/23 11:55 60 16 142/68 96 07/26/23 11:53 61 16 142/86 100 07/26/23 11:48 59 L 16 142/68 100 07/26/23 11:30 20 07/26/23 11:03 60 16 119/76 98 07/26/23 11:01 97.8 F 52 L 18 144/83 99 Intake and Output 07/26/23 07/26/23 07/26/23 06:59 14:59 22:59 Other: Weight 72.575 kg VITAL SIGNS: 99, 60, 18, 108 x 72, 98% on 2 L GENERAL: BMI 20.5, thin built laying in bed tired short of breath. EYES: Pupils equal. Conjunctiva simran l. HEENT: External appearance of nose and ears normal, oral cavity grossly normal. NECK: JVD not raised; masses not palpable. HEART: First and second heart sounds are normal; no edema. LUNGS: Respiratory rate increased, diminished breath sounds wheezing, left anterior chest wall Thora-vent to suction. ABDOMEN: Soft, nontender, liver spleen not palpable, no masses palpable. PSYCH: Alert and oriented x3; mood and affect simran l. MUSCULOSKELETAL:No Clubbing/cyanosis;muscles-grossly intact NEUROLOGICAL: Cranial nerves grossly intact; no facial asymmetry, power and sensation grossly intact. LYMPHATICS: No lymph nodes palpable in the axilla and neck Results - Laboratory Findings CBC and BMP: 07/26/23 11:32 07/26/23 11:32 PT/INR, D-dimer PT 11.6 sec (10.0-12.5) 07/26/23 11:32 INR 1.1 (<1.2) 07/26/23 11:32 Abnormal lab findings: Abnormal Labs 07/26/23 11:32 Carbon Dioxide 18 L Glucose 60 L Magnesium 2.4 H - Diagnostic Findings Chest x-ray: image reviewed Assessment and Plan Plan: Left sided secondary pneumothorax, spontaneous, status post insertion of a Thora vent with complete reexpansion of left lung. Thora vent is connected to the Pleur-evac. No evidence of any air leak COPD, moderately severe Stable ascending thoracic aortic aneurysm measuring 4.2 cm Paroxysmal atrial fibrillation current rhythm is sinus Remote history of testicular cancer back in 1981 Hypertension Hyperlipidemia Osteoarthritis Reflux Smoker and the patient is a current everyday smoker Plan Daily chest x-rays Monitor for any air leaks and keep the Thora vent attached to the Pleur-evac over the next 24 hours Incentive spirometer Resume home medications Smoking cessation counseling Will follow
[2023-07-27] MEDS: AMIODARONE 100 MG TAB PO SCH (08:24)
[2023-07-27] MEDS: ASPIRIN 81 MG PO SCH (08:24)
[2023-07-27] MEDS: NIFEdipine XL 30 MG TAB.ER.24 PO SCH (08:24)
[2023-07-27] MEDS: PANTOPRAZOLE 40 MG TABLET PO SCH (08:24)
[2023-07-27 08:55] LABS: Basophils % (A) 0 %; Eosinophils # (A) 0.3 k/uL (0-0.7); Eosinophils % (A) 4 %; Lymphocytes # (A) 1.1 k/uL (1.0-4.8); Lymphocytes % (A) 15 %; MCH 29.7 pg (25.0-35.0); MCHC 33.2 g/dL (31.0-37.0); MCV 89.6 fL (80.0-100.0); Mean Platelet Volume 11.1; Monocytes # (A) 0.5 k/uL (0-1.0); Monocytes % (A) 7 %; Neutrophils # (A) 5.2 k/uL (1.3-7.7); Neutrophils % (A) 73 %; Platelet Count 120 k/uL (150-450); RBC 4.02 m/uL (4.30-5.90); RDW 14.6 % (11.5-15.5); WBC 7.1 k/uL (3.8-10.6)
[2023-07-27 09:19] LABS: ALT 14 U/L (4-49); AST 23 U/L (17-59); African American GFR (CKD) 87 (>60 ml/min/1.73 sqM); Albumin 3.4 g/dL (3.5-5.0); Alkaline Phosphatase 71 U/L (38-126); Anion Gap 5 mmol/L; Blood Urea Nitrogen 14 mg/dL (9-20); Calcium 8.1 mg/dL (8.4-10.2); Carbon Dioxide 21 mmol/L (22-30); Chloride 111 mmol/L (98-107); Glucose 88 mg/dL (74-99); Non-African American GFR(CKD) 75 (>60 ml/min/1.73 sqM); Potassium 3.9 mmol/L (3.5-5.1); Sodium 137 mmol/L (137-145); Total Bilirubin 0.9 mg/dL (0.2-1.3); Total Protein 5.8 g/dL (6.3-8.2)
--- NOTE | 2023-07-27 10:24 | XR ---
EXAMINATION TYPE: XR chest 1V DATE OF EXAM: 07/27/2023 HISTORY: Follow-up left-sided pneumothorax COMPARISON: 07/26/2023 TECHNIQUE: Single view of the chest is submitted. FINDINGS: Demonstrated are scattered senescent parenchymal change. Left-sided pleural catheter is noted to be in place. There is less than 10% left-sided pneumothorax. Pleural parenchymal densities are seen scat tered throughout the left chest. There is no evidence for focal infiltrate. The heart is stable. Hilar and mediastinal structures are within normal limits. Degenerative changes are seen of the dorsal spine. IMPRESSION: 1. Left-sided pleural catheter is noted to be in place. There is less than 10% left-sided pneumotho rax. Pleural parenchymal densities are seen scattered throughout the left chest.
--- NOTE | 2023-07-27 12:33 | P.PN ---
Progress Note - Text Progress Note Date: 07/27/23 Chief Complaint: Short of breath Pleasant 63-year-old patient, follows with Dr. Lacey. Chronic stable medical condition include atrial fibrillation, COPD, GERD, hypertension, hyperlipidemia, osteoarthritis, testicular cancer 98 2, CAD with stent. Smoker. Patient about 4 days ago became suddenly short of breath. Symptoms progressed per his progress decided to come in. He then had gone to [facility] he was told he has partially collapsed lung chest x-ray done by his PCP resulted him finding out he had pneumothorax Thora vent is placed to suction. On the left side. Also short of breath. Smoker. July 26: Left-sided Thora-vent to drainage. Some shortness of breath. Tolerating diet. X-ray from today shows less than 10% pneumothorax. Continue breathing treatment. Active Medications Acetaminophen (Acetaminophen Tab 325 Mg Tab) 650 mg PO Q6HR PRN PRN Reason: Mild Pain or Fever > 100.5 Albuterol/Ipratropium (Ipratropium-Albuterol 3 Ml Neb) 3 ml INHALATION RT-QID [facility] Last Admin: 07/27/23 12:10 Dose: 3 ml Amiodarone HCl (Amiodarone 100 Mg Tab) 100 mg PO DAILY [facility] Last Admin: 07/27/23 08:24 Dose: 100 mg Aspirin (Aspirin 81 Mg) 81 mg PO DAILY [facility] Last Admin: 07/27/23 08:24 Dose: 81 mg Atorvastatin Calcium (Atorvastatin 80 Mg Tab) 80 mg PO HS [facility] Last Admin: 07/26/23 22:05 Dose: 80 mg Budesonide (Budesonide 1 Mg/2 Ml Nebu) 1 mg INHALATION RT-BID [facility] Last Admin: 07/27/23 09:28 Dose: 1 mg Sodium Chloride (Saline 0.9%) 1,000 mls @ 75 mls/hr IV .[id number] [facility] Last Admin: 07/27/23 00:59 Dose: 75 mls/hr Morphine Sulfate (Morphine Sulfate 4 Mg/Ml Syringe) 4 mg IV Q4HR PRN PRN Reason: Severe Pain (Scale 7 to 10) Last Admin: 07/26/23 22:40 Dose: 4 mg Naloxone HCl (Naloxone 0.4 Mg/Ml 1 Ml Vial) 0.2 mg IV Q2M PRN PRN Reason: Opioid Reversal Nicotine (Nicotine 14mg/24hr Patch) 1 patch TRANSDERM DAILY [facility] Last Admin: 07/27/23 08:24 Dose: Not Given Nifedipine (Nifedipine Xl 30 Mg Tab.Er.24) 30 mg PO DAILY [facility] Last Admin: 07/27/23 08:25 Dose: Not Given Pantoprazole Sodium (Pantoprazole 40 Mg Tablet) 40 mg PO DAILY [facility] Last Admin: 07/27/23 08:24 Dose: 40 mg Rivaroxaban (Rivaroxaban 20 Mg Tab) 20 mg PO [facility]; Protocol Last Admin: 07/26/23 22:04 Dose: 20 mg Social history: Drinks 2-3 beers a day. . Retired. Smoking for long time currently 3 packs a week Physical examination: VITAL SIGNS: Afebrile, 98, 18, 109 x 77, 92% room air GENERAL: BMI 20.5, thin built laying in bed tired short of breath. EYES: Pupils equal. Conjunctiva simran l. HEENT: External appearance of nose and ears normal, oral cavity grossly normal. NECK: JVD not raised; masses not palpable. HEART: First and second heart sounds are normal; no edema. LUNGS: Respiratory rate increased, diminished breath sounds wheezing, left anterior chest wall Thora-vent to drain ABDOMEN: Soft, nontender, liver spleen not palpable, no masses palpable. PSYCH: Alert and oriented x3; mood and affect simran l. MUSCULOSKELETAL:No Clubbing/cyanosis;muscles-grossly intact INVESTIGATIONS, reviewed in the clinical context: July 26: White count 7.1 hemoglobin 12 platelets 120s potassium 3.9 creatinine 1.07 Chest x-ray film personally reviewed by me-initial film showed left-sided pneumothorax EKG tracing personally reviewed by me-normal sinus rhythm. July 26, 2023: White count 9.6 hemoglobin 13.7 platelets 162 sodium 137 potassium 4.2 creatinine 1.16 Assessment plan: -Spontaneous pneumothorax in a patient with advanced COPD Left-sided Thora-vent to suction was placed Today's x-ray showing 10% -COPD and a current smoker DuoNeb. Nebulized Pulmicort -Hyperlipidemia Lipitor 80 mg nightly -Paroxysmal atrial fibrillation Currently in sinus rhythm. Amiodarone. Xarelto. -Chronic nicotine dependence, cigarette smoker -CAD with a prior history of stent Aspirin -GERD Protonix Discussed with patient. Continue current treatment plan. Past Medical History Past Medical History: Atrial Fibrillation, Cancer, COPD, GERD/Reflux, Hyperlipidemia, Hypertension, Osteoarthritis (OA) Additional Past Medical History / Comment(s): Hx Testicular cancer in 1981, new bout of A-fib in post-op after recent colonoscopy, History of Any Multi-Drug Resistant Organisms: None Reported Past Surgical History: Heart Catheterization With Stent, Orthopedic Surgery Additional Past Surgical History / Comment(s): Right shoulder surgery, right leg surgery with clayton in femur, colonoscopy , Past Anesthesia/Blood Transfusion Reactions: No Reported Reaction Date of Last Stent Placement:: 12/10/19 Past Psychological History: No Psychological Hx Reported Smoking Status: Current every day smoker Past Alcohol Use History: Daily Additional Past Alcohol Use History / Comment(s): Has been smoking since 23 yrs old, 1 PPD. 2-3 BEERS DAILY Past Drug Use History: Marijuana Additional Drug Use History / Comment(s): daily marijuana use
--- NOTE | 2023-07-27 20:24 | XR ---
EXAMINATION TYPE: XR chest 1V portable DATE OF EXAM: 07/27/2023 COMPARISON: 07/27/2023 HISTORY: Left pneumothorax TECHNIQUE: Single frontal view of the chest is obtained. This case was presented to me after hours at 8:20 PM 07/27/2023. FINDINGS: There is interval increase in size of the left pneumothorax now measuring 50%. Chest tube noted in position. Patchy density in the left lung may be related to compression of the lung from the pneumothorax. No mediastinal deviation. Heart size normal. Biapical pleural thickening. Osseous stru ctures stable. Irregular density right upper lobe incidentally noted. IMPRESSION: A large left pneumothorax measuring approximately 50% increased in size from prior exam. No mediastinal deviation
[2023-07-27] MEDS: ZOLPIDEM 5 MG TAB PO PRN (21:10)
--- NOTE | 2023-07-27 23:24 | P.PN ---
Subjective Progress Note Date: 07/27/23 This is a 63-year-old male patient who came into the emergency department with a spontaneous large left-sided pneumothorax. The patient acutely became short of breath this time was few days back and it progressively got worse. He came into the emergency room he was found to have a large left-sided pneumothorax in the Thora vent was inserted and a subsequent chest x-ray was done following the catheter insertion showed complete reexpansion of the left-sided pneumothorax without any residual abnormalities. The patient remains hemodynamically stable and the patient is currently on 2 L of oxygen by nasal cannula with a pulse ox of 99%. No chest pain. No trauma to the chest. No previous history of pneumothoraces. The patient has history of chronic smoking. The patient has previous history of paroxysmal atrial fibrillation, ascending thoracic aortic aneurysm and previous history of testicular cancer. Also known to have COPD secondary to smoking. His current cardiac rhythm has sinus. His most recent low-dose CAT scan of the chest that was done on 11/10/2022 showed stable ascending thoracic aortic aneurysm measuring 4.3 cm without any significant pulmonary nodules. There is evidence of moderate to severe background COPD/emphysema. 07/27/2023, the patient is being seen for a follow-up. The patient is calm and comfortable. No respiratory distress. Earlier this morning, the patient underwent a chest x-ray that showed less than 10% pneumothorax on the left. There was no evidence of any air leak in the Pleur-evac. Based on that, the wall suction was discontinued. Subsequently, repeat chest x-ray was done and showed enlargement in the left-sided pneumothorax which was in order of 50%. Based on that, I performed manual suctioning of the air and attached the Thora vent again to the Pleur-evac and there was persistent air leak. The patient remained hemodynamically stable. No significant respite distress. BUN is 14 with a creatinine of 1 and electrolytes are all within normal limits. WBC count 7 with a hemoglobin of 12. The patient remains on anticoagulation with Xarelto. Remains on IV fluid normal saline at rate of 75 cc an hour. No chest pain. No other new complaints otherwise for now. No pleurisy. No hemoptysis. Objective - Vital Signs Vital signs: Vital Signs Temp 98.0 F 07/27/23 20:00 Pulse 68 07/27/23 22:25 Resp 18 07/27/23 22:25 BP 122/68 07/27/23 20:00 Pulse Ox 95 07/27/23 20:00 FiO2 Intake & Output 07/27/23 07/27/23 07/28/23 06:59 18:59 06:59 Intake Total 118 Balance 118 Intake: Oral 118 - Exam VITAL SIGNS: 99, 60, 18, 108 x 72, 98% on 2 L GENERAL: BMI 20.5, thin built laying in bed tired short of breath. EYES: Pupils equal. Conjunctiva simran l. HEENT: External appearance of nose and ears normal, oral cavity grossly normal. NECK: JVD not raised; masses not palpable. HEART: First and second heart sounds are normal; no edema. LUNGS: Respiratory rate increased, diminished breath sounds wheezing, left anterior chest wall Thora-vent to suction. ABDOMEN: Soft, nontender, liver spleen not palpable, no masses palpable. PSYCH: Alert and oriented x3; mood and affect simran l. MUSCULOSKELETAL:No Clubbing/cyanosis;muscles-grossly intact NEUROLOGICAL: Cranial nerves grossly intact; no facial asymmetry, power and sensation grossly intact. LYMPHATICS: No lymph nodes palpable in the axilla and neck - Labs CBC & Chem 7: 07/27/23 07:49 07/27/23 07:49 Labs: Abnormal Lab Results - Last 24 Hours (Table) 07/27/23 07/27/23 Range/Units 07:49 07:49 RBC 4.02 L (4.30-5.90) m/uL Hgb 12.0 L (13.0-17.5) gm/dL Hct 36.0 L (39.0-53.0) % Plt Count 120 L (150-450) k/uL Chloride 111 H (98-107) mmol/L Carbon Dioxide 21 L (22-30) mmol/L Calcium 8.1 L (8.4-10.2) mg/dL Total Protein 5.8 L (6.3-8.2) g/dL Albumin 3.4 L (3.5-5.0) g/dL Assessment and Plan Plan: Left sided secondary pneumothorax, spontaneous, status post insertion of a Thora vent with complete reexpansion of left lung. Thora vent is connected to the Pleur-evac. The patient developed recurrent pneumothorax after detaching the Pleur-evac and wall suction. Based on that, manual suctioning was done and the patient was reattached to wall suction.. There is ongoing air leak. COPD, moderately severe Stable ascending thoracic aortic aneurysm measuring 4.2 cm Paroxysmal atrial fibrillation current rhythm is sinus Remote history of testicular cancer back in 1981 Hypertension Hyperlipidemia Osteoarthritis Reflux Smoker and the patient is a current everyday smoker Plan Daily chest x-rays Monitor for any air leaks and keep the Thora vent attached to the Pleur-evac over the next 24 hours Incentive spirometer Resume home medications Smoking cessation counseling Will follow
--- NOTE | 2023-07-28 12:45 | XR ---
EXAM: XR chest 1V portable CLINICAL INDICATION:Male, 63 years old with history of ro pneumothorax; [facility] COMPARISON: 07/27/2023 TECHNIQUE: Chest single view. FINDINGS: Left chest tube suggesting thoravent again noted over the left upper lobe. EKG leads overlie the ches t. No indwelling lines are otherwise seen. Significant interval decrease in size of the left pneumothorax, now approximately 15-20%. Interval im proved aeration of the left lung with decreased atelectatic opacities. Probable background COPD diallo es. No mediastinal deviation. Heart size normal. Osseous structures stable. No acute bony pathology evident. IMPRESSION: Significant interval decrease in size of the left pneumothorax, now approximately 15-20%. Interval im proved aeration of the left lung with decreased atelectatic opacities.
--- NOTE | 2023-07-28 13:40 | P.PN ---
Subjective Progress Note Date: 07/28/23 Pleasant 63-year-old patient, follows with Dr. Lacey. Chronic stable medical condition include atrial fibrillation, COPD, GERD, hypertension, hyperlipidemia, osteoarthritis, testicular cancer 98 2, CAD with stent. Smoker. Patient about 4 days ago became suddenly short of breath. Symptoms progressed per his progress decided to come in. He then had gone to [facility] he was told he has partially collapsed lung chest x-ray done by his PCP resulted him finding out he had pneumothorax Thora vent is placed to suction. On the left side. Also short of breath. Smoker. July 26: Left-sided Thora-vent to drainage. Some shortness of breath. Tolerating diet. X-ray from today shows less than 10% pneumothorax. Continue breathing treatment. 07/27. Patient seen and examined. States breathing is improved. Still has Thora vent in place. Denies any chest pain REVIEW OF SYSTEMS: CONSTITUTIONAL: No fever, no malaise,. CARDIOVASCULAR: No chest pain, no palpitations, no syncope. PULMONARY: No shortness of breath, no cough, GASTROINTESTINAL: No diarrhea, no nausea, no vomiting, no abdominal pain. NEUROLOGICAL: No headaches, no weakness, PHYSICAL EXAMINATION: GENERAL: The patient is alert and oriented x3, not in any acute distress. Well developed, well nourished. HEENT: Pupils are round and equally reacting to light. EOMI. No scleral icterus. No conjunctival pallor. Normocephalic, atraumatic. No pharyngeal erythema. No thyromegaly. CARDIOVASCULAR: S1 and S2 present. No murmurs, rubs, or gallops. PULMONARY: Diminished breath sound the bases, left sided Thora vent seen ABDOMEN: Soft, nontender, nondistended, normoactive bowel sounds. No palpable organomegaly. MUSCULOSKELETAL: No joint swelling or deformity. EXTREMITIES: No cyanosis, clubbing, or pedal edema. NEUROLOGICAL: Gross neurological examination did not reveal any focal deficits. SKIN: No rashes. Assessment and plan -Spontaneous pneumothorax in a patient with advanced COPD -COPD and a current smoker -Hyperlipidemia -Paroxysmal atrial fibrillation -Chronic nicotine dependence, cigarette smoker -CAD with a prior history of stent -GERD Monitor vital signs Monitor CBC Monitor CMP Continue telemetry monitoring Encourage use of incentive spirometer S/p left-sided Thora vent continue postoperative antibiotic per protocol, postoperative pain management per primary monitor for excessive sedation. Continue amiodarone. Xarelto. Pulmonology following Labs and medication were reviewed.. Continue same treatment. Continue with symptomatic treatment. Resume home medication. Monitor labs and vitals. DVT and GI prophylaxis. Further recommendations as per clinical course of the patient Dictation was produced using [employer] dictation software. please excuse any grammatical, word or spelling errors. Objective - Vital Signs Vital signs: Vital Signs Temp 98.1 F 07/28/23 10:25 Pulse 61 07/28/23 10:25 Resp 16 07/28/23 10:25 BP 136/77 07/28/23 10:25 Pulse Ox 98 07/28/23 10:25 FiO2 Intake & Output 07/27/23 07/28/23 07/28/23 18:59 06:59 18:59 Intake Total 118 Output Total 300 525 Balance 118 -300 -525 Intake: Oral 118 Output: Urine 300 525 - Labs CBC & Chem 7: 07/27/23 07:49 07/27/23 07:49
--- NOTE | 2023-07-28 19:24 | P.PN ---
Subjective Progress Note Date: 07/28/23 This is a 63-year-old male patient who came into the emergency department with a spontaneous large left-sided pneumothorax. The patient acutely became short of breath this time was few days back and it progressively got worse. He came into the emergency room he was found to have a large left-sided pneumothorax in the Thora vent was inserted and a subsequent chest x-ray was done following the catheter insertion showed complete reexpansion of the left-sided pneumothorax without any residual abnormalities. The patient remains hemodynamically stable and the patient is currently on 2 L of oxygen by nasal cannula with a pulse ox of 99%. No chest pain. No trauma to the chest. No previous history of pneumothoraces. The patient has history of chronic smoking. The patient has previous history of paroxysmal atrial fibrillation, ascending thoracic aortic aneurysm and previous history of testicular cancer. Also known to have COPD secondary to smoking. His current cardiac rhythm has sinus. His most recent low-dose CAT scan of the chest that was done on 11/10/2022 showed stable ascending thoracic aortic aneurysm measuring 4.3 cm without any significant pulmonary nodules. There is evidence of moderate to severe background COPD/emphysema. 07/27/2023, the patient is being seen for a follow-up. The patient is calm and comfortable. No respiratory distress. Earlier this morning, the patient underwent a chest x-ray that showed less than 10% pneumothorax on the left. There was no evidence of any air leak in the Pleur-evac. Based on that, the wall suction was discontinued. Subsequently, repeat chest x-ray was done and showed enlargement in the left-sided pneumothorax which was in order of 50%. Based on that, I performed manual suctioning of the air and attached the Thora vent again to the Pleur-evac and there was persistent air leak. The patient remained hemodynamically stable. No significant respite distress. BUN is 14 with a creatinine of 1 and electrolytes are all within normal limits. WBC count 7 with a hemoglobin of 12. The patient remains on anticoagulation with Xarelto. Remains on IV fluid normal saline at rate of 75 cc an hour. No chest pain. No other new complaints otherwise for now. No pleurisy. No hemoptysis. On today's evaluation of 07/28/2023, the patient is being seen for a follow-up. The patient is doing extremely well. No specific complaints. The patient presented to us with a left-sided pneumothorax. The patient currently has a Thora vent in place. The Thora vent is attached to wall suction the patient continues to have air leak. Repeat chest x-ray was done and the patient was found to have 10 to 15% pneumothorax in the left apex. Otherwise, the patient is doing well. Moderately stable. Pulse ox 97% on room air oxygen. No chest pain. No other significant events overnight. He is using incentive spirometer. He is also on long-term anticoagulation with Xarelto. Objective - Vital Signs Vital signs: Vital Signs Temp 98.6 F 07/28/23 15:52 Pulse 90 07/28/23 16:14 Resp 16 07/28/23 15:52 BP 156/90 07/28/23 15:52 Pulse Ox 97 07/28/23 15:52 FiO2 Intake & Output 07/28/23 07/28/23 07/29/23 06:59 18:59 06:59 Intake Total 2440 Output Total 300 530 Balance -300 1910 Intake: IV 600 Sodium Chloride 0.9% 1, 600 000 ml @ 75 mls/hr IV . [id number] [facility] Rx#:[id number] Oral 1840 Output: Chest Tube Drainage 5 Thora-Vent Left 5 Urine 300 525 - Exam GENERAL: BMI 20.5, thin built laying in bed tired short of breath. The patient is currently on room air oxygen. EYES: Pupils equal. Conjunctiva simran l. HEENT: External appearance of nose and ears normal, oral cavity grossly normal. NECK: JVD not raised; masses not palpable. HEART: First and second heart sounds are normal; no edema. LUNGS: Respiratory rate increased, diminished breath sounds wheezing, left anterior chest wall Thora-vent to suction. There is evidence of ongoing air leak. ABDOMEN: Soft, nontender, liver spleen not palpable, no masses palpable. PSYCH: Alert and oriented x3; mood and affect simran l. MUSCULOSKELETAL:No Clubbing/cyanosis;muscles-grossly intact NEUROLOGICAL: Cranial nerves grossly intact; no facial asymmetry, power and sensation grossly intact. LYMPHATICS: No lymph nodes palpable in the axilla and neck - Labs CBC & Chem 7: 07/27/23 07:49 07/27/23 07:49 Assessment and Plan Plan: Left sided secondary pneumothorax, spontaneous, status post insertion of a Thora vent with complete reexpansion of left lung. Thora vent is connected to the Pleur-evac. The patient has persistent air leak. There is residual pneumothorax in the order of 10 to 15% left apex. COPD, moderately severe Stable ascending thoracic aortic aneurysm measuring 4.2 cm Paroxysmal atrial fibrillation current rhythm is sinus Remote history of testicular cancer back in 1981 Hypertension Hyperlipidemia Osteoarthritis Reflux Smoker and the patient is a current everyday smoker Plan Respiratory status is stable. Clinically and hemodynamically stable. Will keep the Thora vent in place and will continue oral suctioning. Daily chest x-rays Monitor for any air leaks and keep the Thora vent attached to the Pleur-evac and wall suction. Incentive spirometer Resume home medications Smoking cessation counseling Will follow
[2023-07-28] MEDS: SALINE NASAL GEL 14.1 GM TUBE NASAL PRN (21:35)
--- NOTE | 2023-07-29 07:36 | XR ---
EXAMINATION TYPE: XR chest 1V DATE OF EXAM: 07/29/2023 6:25 AM CLINICAL INDICATION:Male, 63 years old with history of PTX; COMPARISON: Chest radiograph from one day prior. TECHNIQUE: XR chest 1V Frontal view of the chest. FINDINGS: Lungs/Pleura: Small left pneumothorax. Prominent interstitial lung markings are seen scattered throug hout the lungs. No evidence of focal consolidation, right pneumothorax or pleural effusion. Pulmonary vascularity: Unremarkable. Heart/mediastinum: Cardiomediastinal silhouette is unremarkable. Musculoskeletal: No acute osseous pathology. IMPRESSION: Stable small left pneumothorax with thoracotomy tube present.
--- NOTE | 2023-07-29 12:38 | P.PN ---
Subjective Progress Note Date: 07/29/23 Pleasant 63-year-old patient, follows with Dr. Lacey. Chronic stable medical condition include atrial fibrillation, COPD, GERD, hypertension, hyperlipidemia, osteoarthritis, testicular cancer 98 2, CAD with stent. Smoker. Patient about 4 days ago became suddenly short of breath. Symptoms progressed per his progress decided to come in. He then had gone to [facility] he was told he has partially collapsed lung chest x-ray done by his PCP resulted him finding out he had pneumothorax Thora vent is placed to suction. On the left side. Also short of breath. Smoker. July 26: Left-sided Thora-vent to drainage. Some shortness of breath. Tolerating diet. X-ray from today shows less than 10% pneumothorax. Continue breathing treatment. 07/27. Patient seen and examined. States breathing is improved. Still has Thora vent in place. Denies any chest pain 07/28. Patient seen and examined. States he feels the same as yesterday, still has Thora vent in place REVIEW OF SYSTEMS: CONSTITUTIONAL: No fever, no malaise,. CARDIOVASCULAR: No chest pain, no palpitations, no syncope. PULMONARY: No shortness of breath, no cough, GASTROINTESTINAL: No diarrhea, no nausea, no vomiting, no abdominal pain. NEUROLOGICAL: No headaches, no weakness, PHYSICAL EXAMINATION: GENERAL: The patient is alert and oriented x3, not in any acute distress. Well developed, well nourished. HEENT: Pupils are round and equally reacting to light. EOMI. No scleral icterus. No conjunctival pallor. Normocephalic, atraumatic. No pharyngeal erythema. No thyromegaly. CARDIOVASCULAR: S1 and S2 present. No murmurs, rubs, or gallops. PULMONARY: Diminished breath sound the bases, left sided Thora vent seen ABDOMEN: Soft, nontender, nondistended, normoactive bowel sounds. No palpable organomegaly. MUSCULOSKELETAL: No joint swelling or deformity. EXTREMITIES: No cyanosis, clubbing, or pedal edema. NEUROLOGICAL: Gross neurological examination did not reveal any focal deficits. SKIN: No rashes. Assessment and plan -Spontaneous pneumothorax in a patient with advanced COPD -COPD and a current smoker -Hyperlipidemia -Paroxysmal atrial fibrillation -Chronic nicotine dependence, cigarette smoker -CAD with a prior history of stent -GERD Monitor vital signs Monitor CBC Monitor CMP Continue telemetry monitoring Encourage use of incentive spirometer S/p left-sided Thora vent Continue amiodarone. Xarelto. Pulmonology following Labs and medication were reviewed.. Continue same treatment. Continue with symptomatic treatment. Resume home medication. Monitor labs and vitals. DVT and GI prophylaxis. Further recommendations as per clinical course of the patient Dictation was produced using [employer] dictation software. please excuse any grammatical, word or spelling errors. Objective - Vital Signs Vital signs: Vital Signs Temp 98.1 F 07/29/23 08:00 Pulse 96 07/29/23 08:38 Resp 16 07/29/23 08:00 BP 135/82 07/29/23 08:00 Pulse Ox 97 07/29/23 08:00 FiO2 Intake & Output 07/28/23 07/29/23 07/29/23 18:59 06:59 18:59 Intake Total 2440 Output Total 530 300 Balance 1910 -300 Intake: IV 600 Sodium Chloride 0.9% 1, 600 000 ml @ 75 mls/hr IV . [id number] [facility] Rx#:[id number] Oral 1840 Output: Chest Tube Drainage 5 Thora-Vent Left 5 Urine 525 300 - Labs CBC & Chem 7: 07/27/23 07:49 07/27/23 07:49
--- NOTE | 2023-07-29 12:41 | P.PN ---
Subjective Progress Note Date: 07/29/23 This is a 63-year-old male patient who came into the emergency department with a spontaneous large left-sided pneumothorax. The patient acutely became short of breath this time was few days back and it progressively got worse. He came into the emergency room he was found to have a large left-sided pneumothorax in the Thora vent was inserted and a subsequent chest x-ray was done following the catheter insertion showed complete reexpansion of the left-sided pneumothorax without any residual abnormalities. The patient remains hemodynamically stable and the patient is currently on 2 L of oxygen by nasal cannula with a pulse ox of 99%. No chest pain. No trauma to the chest. No previous history of pneumothoraces. The patient has history of chronic smoking. The patient has previous history of paroxysmal atrial fibrillation, ascending thoracic aortic aneurysm and previous history of testicular cancer. Also known to have COPD secondary to smoking. His current cardiac rhythm has sinus. His most recent low-dose CAT scan of the chest that was done on 11/10/2022 showed stable ascending thoracic aortic aneurysm measuring 4.3 cm without any significant pulmonary nodules. There is evidence of moderate to severe background COPD/emphysema. 07/27/2023, the patient is being seen for a follow-up. The patient is calm and comfortable. No respiratory distress. Earlier this morning, the patient underwent a chest x-ray that showed less than 10% pneumothorax on the left. There was no evidence of any air leak in the Pleur-evac. Based on that, the wall suction was discontinued. Subsequently, repeat chest x-ray was done and showed enlargement in the left-sided pneumothorax which was in order of 50%. Based on that, I performed manual suctioning of the air and attached the Thora vent again to the Pleur-evac and there was persistent air leak. The patient remained hemodynamically stable. No significant respite distress. BUN is 14 with a creatinine of 1 and electrolytes are all within normal limits. WBC count 7 with a hemoglobin of 12. The patient remains on anticoagulation with Xarelto. Remains on IV fluid normal saline at rate of 75 cc an hour. No chest pain. No other new complaints otherwise for now. No pleurisy. No hemoptysis. On today's evaluation of 07/28/2023, the patient is being seen for a follow-up. The patient is doing extremely well. No specific complaints. The patient presented to us with a left-sided pneumothorax. The patient currently has a Thora vent in place. The Thora vent is attached to wall suction the patient continues to have air leak. Repeat chest x-ray was done and the patient was found to have 10 to 15% pneumothorax in the left apex. Otherwise, the patient is doing well. Moderately stable. Pulse ox 97% on room air oxygen. No chest pain. No other significant events overnight. He is using incentive spirometer. He is also on long-term anticoagulation with Xarelto. 07/29/2023, the patient is not having any complaints. Repeat chest x-ray from today shows a stable left apical pneumothorax. The Thora vent is in place and the patient has improved in terms of the air leak although there is some intermittent air leak still present in the Pleur-evac. Manual aspiration of the pneumothorax was done at the bedside. The patient is on room air oxygen. White cell count of 7 with a hemoglobin of 12 and a platelet count of 120. Electrolytes are all within normal limits. The patient has no respiratory complaints otherwise for now. Objective - Vital Signs Vital signs: Vital Signs Temp 98.1 F 07/29/23 08:00 Pulse 96 07/29/23 08:38 Resp 16 07/29/23 08:00 BP 135/82 07/29/23 08:00 Pulse Ox 97 07/29/23 08:00 FiO2 Intake & Output 07/28/23 07/29/23 07/29/23 18:59 06:59 18:59 Intake Total 2440 Output Total 530 300 Balance 1910 -300 Intake: IV 600 Sodium Chloride 0.9% 1, 600 000 ml @ 75 mls/hr IV . [id number] [facility] Rx#:[id number] Oral 1840 Output: Chest Tube Drainage 5 Thora-Vent Left 5 Urine 525 300 - Exam GENERAL: BMI 20.5, thin built laying in bed tired short of breath. The patient is currently on room air oxygen. EYES: Pupils equal. Conjunctiva simran l. HEENT: External appearance of nose and ears normal, oral cavity grossly normal. NECK: JVD not raised; masses not palpable. HEART: First and second heart sounds are normal; no edema. LUNGS: Respiratory rate increased, diminished breath sounds wheezing, left anterior chest wall Thora-vent to suction. There is evidence of ongoing air leak. ABDOMEN: Soft, nontender, liver spleen not palpable, no masses palpable. PSYCH: Alert and oriented x3; mood and affect simran l. MUSCULOSKELETAL:No Clubbing/cyanosis;muscles-grossly intact NEUROLOGICAL: Cranial nerves grossly intact; no facial asymmetry, power and sensation grossly intact. LYMPHATICS: No lymph nodes palpable in the axilla and neck - Labs CBC & Chem 7: 07/27/23 07:49 07/27/23 07:49 Assessment and Plan Plan: Left sided secondary pneumothorax, spontaneous, status post insertion of a Thora vent with complete reexpansion of left lung. Thora vent is connected to the Pleur-evac. The patient has persistent air leak. There is residual pneumothorax in the order of 10 to 15% left apex. This is a loculated pneumothorax in the left apex. Manual aspiration was done. The airleak is intermittent and significant reduced compared to yesterday. COPD, moderately severe Stable ascending thoracic aortic aneurysm measuring 4.2 cm Paroxysmal atrial fibrillation current rhythm is sinus Remote history of testicular cancer back in 1981 Hypertension Hyperlipidemia Osteoarthritis Reflux Smoker and the patient is a current everyday smoker Plan Respiratory status is stable. Clinically and hemodynamically stable. Will keep the Thora vent in place and will continue oral suctioning. Manual aspiration of the pneumothorax was done. Daily chest x-rays Monitor for any air leaks and keep the Thora vent attached to the Pleur-evac and wall suction. Consider a CAT scan of the chest if the pneumothorax remains unchanged within the next 24 to 48 hours. Incentive spirometer Resume home medications Smoking cessation counseling Will follow
[2023-07-29] MEDS: DOCUSATE 100 MG CAP PO SCH (18:30)
--- NOTE | 2023-07-29 20:34 | P.CRDCN ---
History of Present Illness Consult date: 07/29/23 History of present illness: HISTORY OF PRESENTING ILLNESS Patient is a 63-year-old who presented to the hospital because of acute onset shortness of breath that started 1 to 2 days and have gotten progressively worse. On admission he was found to have large left-sided pneumothorax. He underwent Thora vent placement with subsequent chest x-ray so showing complete reexpansion of left lung. On admission he was in sinus rhythm with intermittent PACs. July 25, WBC 9.6, hemoglobin 13, creatinine 1.16, REVIEW OF SYSTEMS 14 point review of system is negative except what is mentioned above in HPI. PHYSICAL EXAMINATION Vital signs reviewed. Head: Normocephalic. Eyes: Sclerae nonicteric. Neck: Brisk carotid upstroke, no jugular venous distention. Lungs: Clear to auscultation. Left-sided Thora vent in place Heart: Regular rate and rhythm, S1-S2, no S3, no murmur or rub. Abdomen: Soft nontender, positive bowel sounds. Extremities: No edema, intact distal pulses. Neuro: Alert, oritented, no focal deficits. Detailed neuro exam was not performed. ASSESSMENT Paroxysmal atrial fibrillation, currently in sinus rhythm Dilated ascending aorta 4.3 cm Spontaneous pneumothorax because of advanced COPD on left side s/p left-sided Thora vent. COPD Tobacco smoker CAD s/p PCI in the past Nasal bleeding, stable PLAN Continue amiodarone, Xarelto Continue aspirin Lipitor Recommend outpatient follow-up for ascending aortic aneurysm. Patient is stable from cardiovascular standpoint. Cardiology team will sign off. Kevin Louie MD, FACC, RPVI Thank you for allowing [facility] to participate in this patient's care. Feel free to reach out in case of any followup questions. Past Medical History Past Medical History: Atrial Fibrillation, Cancer, COPD, GERD/Reflux, Hyperlipidemia, Hypertension, Osteoarthritis (OA) Additional Past Medical History / Comment(s): Hx Testicular cancer in 1981, new bout of A-fib in post-op after recent colonoscopy, History of Any Multi-Drug Resistant Organisms: None Reported Past Surgical History: Heart Catheterization With Stent, Orthopedic Surgery Additional Past Surgical History / Comment(s): Right shoulder surgery, right leg surgery with clayton in femur, colonoscopy , Past Anesthesia/Blood Transfusion Reactions: No Reported Reaction Date of Last Stent Placement:: 12/10/19 Past Psychological History: No Psychological Hx Reported Smoking Status: Current every day smoker - Past Family History Father Family Medical History: Cancer Additional Family Medical History / Comment(s): Brain tumor, lung cancer. Mother Family Medical History: Cancer Additional Family Medical History / Comment(s): "Female cancer" Medications and Allergies Home Medications Medication Instructions Recorded Confirmed Type Atorvastatin [Lipitor] 80 mg PO HS #90 tab 12/11/19 07/26/23 Rx Aspirin 81 mg PO DAILY 07/05/21 07/26/23 History Pantoprazole [Protonix] 40 mg PO DAILY 07/05/21 07/26/23 History Amiodarone HCl [Pacerone] 100 mg PO DAILY 07/26/23 07/26/23 History NIFEdipine XL [Procardia Xl] 30 mg PO DAILY 07/26/23 07/26/23 History Rivaroxaban [Xarelto] 20 mg PO HS 07/26/23 07/26/23 History Allergies Allergy/AdvReac Type Severity Reaction Status Date / Time apixaban [From Eliquis] Allergy LIPS AND Verified 07/26/23 11:30 TONGUE NUMBNESS azithromycin [From Zithromax] Allergy LIPS AND Verified 07/26/23 11:30 TONGUE NUMBNESS cephalexin [From Keflex] Allergy LIPS AND Verified 07/26/23 11:30 TONGUE NUMBNESS dexamethasone [From Decadron] Allergy LIPS AND Verified 07/26/23 11:30 TONGUE NUMBNESS digoxin Allergy LIPS AND Verified 07/26/23 11:30 TONGUE NUMBNESS omeprazole [From Prilosec] Allergy LIPS AND Verified 07/26/23 11:30 TONGUE NUMBNESS Physical Exam Vitals: Vital Signs Temp Pulse Pulse Resp BP Pulse Ox 07/29/23 20:10 85 07/29/23 20:00 84 07/29/23 15:34 98.1 F 69 20 155/84 98 07/29/23 15:31 88 07/29/23 15:19 90 07/29/23 13:36 63 16 07/29/23 11:36 92 07/29/23 11:32 98.5 F 63 16 149/85 97 07/29/23 11:23 94 07/29/23 08:38 96 07/29/23 08:28 98 07/29/23 08:00 98.1 F 85 16 135/82 97 07/29/23 04:00 98.1 F 77 16 132/72 97 07/29/23 00:18 97.7 F 72 16 152/81 98 07/28/23 22:03 98 F 88 17 132/71 98 07/28/23 21:15 96 07/28/23 20:56 95 Intake and Output 07/29/23 07/29/23 07/29/23 06:59 14:59 22:59 Intake Total 1200 480 Output Total 300 0 Balance -300 1200 480 Intake: Oral 1200 480 Output: Chest Tube Drainage 0 Thora-Vent Left 0 Urine 300 Results 07/27/23 07:49 07/27/23 07:49 Current Medications Generic Name Dose Route Start Last Admin Trade Name Freq PRN Reason Stop Dose Admin Acetaminophen 650 mg 07/26/23 12:22 Acetaminophen Tab 325 Mg Tab PO Q6HR PRN Mild Pain or Fever > 100.5 Albuterol/Ipratropium 3 ml 07/26/23 22:00 07/29/23 19:59 Ipratropium-Albuterol 3 Ml Neb INHALATION 3 ml RT-QID ANITA Administration Amiodarone HCl 100 mg 07/27/23 09:00 07/29/23 09:06 Amiodarone 100 Mg Tab PO 100 mg DAILY ANITA Administration Aspirin 81 mg 07/27/23 09:00 07/29/23 09:06 Aspirin 81 Mg PO 81 mg DAILY ANITA Administration Atorvastatin Calcium 80 mg 07/26/23 21:00 07/29/23 20:31 Atorvastatin 80 Mg Tab PO 80 mg HS ANITA Administration Budesonide 1 mg 07/26/23 22:00 07/29/23 19:59 Budesonide 1 Mg/2 Ml Nebu INHALATION 1 mg RT-BID ANITA Administration Docusate Sodium 100 mg 07/29/23 21:00 07/29/23 18:30 Docusate 100 Mg Cap PO 100 mg HS ANITA Administration Morphine Sulfate 4 mg 07/26/23 12:22 07/29/23 20:30 Morphine Sulfate 4 Mg/Ml Syringe IV 4 mg Q4HR PRN Administration Severe Pain (Scale 7 to 10) Naloxone HCl 0.2 mg 07/26/23 12:22 Naloxone 0.4 Mg/Ml 1 Ml Vial IV Q2M PRN Opioid Reversal Nicotine 1 patch 07/26/23 22:00 07/29/23 09:06 Nicotine 14mg/24hr Patch TRANSDERM Not Given DAILY ANITA Nifedipine 30 mg 07/27/23 09:00 07/29/23 09:06 Nifedipine Xl 30 Mg Tab.Er.24 PO Not Given DAILY ANITA Pantoprazole Sodium 40 mg 07/27/23 09:00 07/29/23 09:06 Pantoprazole 40 Mg Tablet PO 40 mg DAILY ANITA Administration Rivaroxaban 20 mg 07/26/23 21:00 07/29/23 20:31 Rivaroxaban 20 Mg Tab PO 20 mg HS ANITA Administration Protocol Sodium Chloride 1 applic 07/28/23 17:06 07/28/23 21:35 Saline Nasal Gel 14.1 Gm Tube NASAL 1 applic Q4HR PRN Administration Dry Nasal Passages Zolpidem Tartrate 5 mg 07/27/23 18:57 07/28/23 21:09 Zolpidem 5 Mg Tab PO 5 mg HS PRN Administration Insomnia Intake and Output 07/29/23 07/29/23 07/29/23 06:59 14:59 22:59 Intake Total 1200 480 Output Total 300 0 Balance -300 1200 480 Intake: Oral 1200 480 Output: Chest Tube Drainage 0 Thora-Vent Left 0 Urine 300 07/27/23 07:49 07/27/23 07:49
[2023-07-30] MEDS: polyethylene glycoL 3350 17 GM POWD.PACK PO SCH (12:07)
[2023-07-30] MEDS: ALPRAZolam 0.25 MG TAB PO PRN (12:07)
--- NOTE | 2023-07-30 12:20 | XR ---
EXAMINATION TYPE: XR chest 1V portable DATE OF EXAM: 07/30/2023 COMPARISON: 07/29/2023 INDICATION: Pneumothorax TECHNIQUE: Single frontal view of the chest is obtained. FINDINGS: The heart size is normal. The pulmonary vasculature is normal. There is mild diffuse increased lung markings visualized left lung. Moderate left pneumothorax remain s present and stable. Left-sided chest tube is evident. IMPRESSION: 1. Stable moderate sized left apical pneumothorax. 2. Mild diffuse increased lung markings aerated left lung.
--- NOTE | 2023-07-30 13:06 | P.PN ---
Subjective Progress Note Date: 07/30/23 Pleasant 63-year-old patient, follows with Dr. Lacey. Chronic stable medical condition include atrial fibrillation, COPD, GERD, hypertension, hyperlipidemia, osteoarthritis, testicular cancer 98 2, CAD with stent. Smoker. Patient about 4 days ago became suddenly short of breath. Symptoms progressed per his progress decided to come in. He then had gone to [facility] he was told he has partially collapsed lung chest x-ray done by his PCP resulted him finding out he had pneumothorax Thora vent is placed to suction. On the left side. Also short of breath. Smoker. July 26: Left-sided Thora-vent to drainage. Some shortness of breath. Tolerating diet. X-ray from today shows less than 10% pneumothorax. Continue breathing treatment. 07/27. Patient seen and examined. States breathing is improved. Still has Thora vent in place. Denies any chest pain 07/28. Patient seen and examined. States he feels the same as yesterday, still has Thora vent in place 07/29. Patient seen and examined. Patient gets anxious easily. Patient heart rate was elevated on ambulation. Pulmonology recommended CT surgery evaluation REVIEW OF SYSTEMS: CONSTITUTIONAL: No fever, no malaise,. CARDIOVASCULAR: No chest pain, no palpitations, no syncope. PULMONARY: No shortness of breath, no cough, GASTROINTESTINAL: No diarrhea, no nausea, no vomiting, no abdominal pain. NEUROLOGICAL: No headaches, no weakness, PHYSICAL EXAMINATION: GENERAL: The patient is alert and oriented x3, not in any acute distress. Well developed, well nourished. HEENT: Pupils are round and equally reacting to light. EOMI. No scleral icterus. No conjunctival pallor. Normocephalic, atraumatic. No pharyngeal erythema. No thyromegaly. CARDIOVASCULAR: S1 and S2 present. No murmurs, rubs, or gallops. PULMONARY: Diminished breath sound the bases, left sided Thora vent seen ABDOMEN: Soft, nontender, nondistended, normoactive bowel sounds. No palpable organomegaly. MUSCULOSKELETAL: No joint swelling or deformity. EXTREMITIES: No cyanosis, clubbing, or pedal edema. NEUROLOGICAL: Gross neurological examination did not reveal any focal deficits. SKIN: No rashes. Assessment and plan -Spontaneous pneumothorax in a patient with advanced COPD -COPD and a current smoker -Hyperlipidemia -Paroxysmal atrial fibrillation -Chronic nicotine dependence, cigarette smoker -CAD with a prior history of stent -GERD Monitor vital signs Monitor CBC Monitor CMP Continue telemetry monitoring Encourage use of incentive spirometer S/p left-sided Thora vent Continue amiodarone. Xarelto. CT surgery consulted Pulmonology following Cardiology following Labs and medication were reviewed.. Continue same treatment. Continue with symptomatic treatment. Resume home medication. Monitor labs and vitals. DVT and GI prophylaxis. Further recommendations as per clinical course of the patient Dictation was produced using [employer] dictation software. please excuse any grammatical, word or spelling errors. Objective - Vital Signs Vital signs: Vital Signs Temp 98.4 F 07/30/23 08:00 Pulse 84 07/30/23 11:30 Resp 16 07/30/23 11:30 BP 115/68 07/30/23 11:26 Pulse Ox 100 07/30/23 11:26 FiO2 Intake & Output 07/29/23 07/30/23 07/30/23 18:59 06:59 18:59 Intake Total 1680 580 Output Total 0 11 0 Balance 1680 -11 580 Intake: Oral 1680 580 Output: Chest Tube Drainage 0 11 0 Thora-Vent Left 0 11 0 Other: Voiding Method Toilet Toilet # Voids 2 - Labs CBC & Chem 7: 07/27/23 07:49 07/27/23 07:49
--- NOTE | 2023-07-30 14:28 | CT ---
EXAMINATION TYPE: CT chest wo con DATE OF EXAM: 07/30/2023 COMPARISON: 11/10/2022 HISTORY: Persistent left pneumothorax CT DLP: 251.[address] of the chest was performed with lung and mediastinal window settings submitted. The la ck of contrast limits evaluation of the vascular, mediastinal and parenchymal structures including th e upper abdomen. LUNGS: There is left-sided pneumothorax noted estimated at 30-40%. Left upper lobe pleural catheter i s noted to be in place. There is no evidence of mediastinal shift. Small left-sided effusion noted. T here is evidence of subpleural fibrosis bilaterally left greater than right. Upper lobe emphysematous changes noted. MEDIASTINUM/GABRIELLE: Thoracic aorta is of normal caliber with limited evaluation given lack of contrast . The heart is not enlarged. No evidence for mediastinal mass. No lymph nodes greater than 1cm. UPPER ABDOMEN: No significant abnormality is seen. OTHER: No significant other abnormality. IMPRESSION: 1. There is left-sided pneumothorax noted estimated at 30-40%. Left upper lobe pleural catheter is n oted to be in place. There is no evidence of mediastinal shift. Small left-sided effusion noted. Ther e is evidence of subpleural fibrosis bilaterally left greater than right.
--- NOTE | 2023-07-30 14:46 | P.PN ---
Subjective Progress Note Date: 07/30/23 HISTORY OF PRESENTING ILLNESS Patient is a 63-year-old who presented to the hospital because of acute onset shortness of breath that started 1 to 2 days and have gotten progressively worse. On admission he was found to have large left-sided pneumothorax. He underwent Thora vent placement with subsequent chest x-ray so showing complete reexpansion of left lung. On admission he was in sinus rhythm with intermittent PACs. July 25, WBC 9.6, hemoglobin 13, creatinine 1.16, 07/29 We have been asked to reassess the patient and his he is still having A-fib with RVR intermittently with sinus bradycardia. He is currently on amiodarone 100 mg daily. Patient is on Xarelto for anticoagulation. We will order echocardiogram which patient does have ordered for the office and we will plan to cancel. PHYSICAL EXAMINATION Vital signs reviewed. Head: Normocephalic. Eyes: Sclerae nonicteric. Neck: Brisk carotid upstroke, no jugular venous distention. Lungs: Clear to auscultation. Left-sided Thora vent in place Heart: Regular rate and rhythm, S1-S2, no S3, no murmur or rub. Abdomen: Soft nontender, positive bowel sounds. Extremities: No edema, intact distal pulses. Neuro: Alert, oritented, no focal deficits. Detailed neuro exam was not performed. ASSESSMENT Paroxysmal atrial fibrillation, alternating between RVR and sinus bradycardia Dilated ascending aorta 4.3 cm Spontaneous pneumothorax because of advanced COPD on left side s/p left-sided Thora vent. COPD Tobacco smoker CAD s/p PCI in the past Nasal bleeding, stable PLAN Continue amiodarone, Xarelto Continue aspirin Lipitor Recommend outpatient follow-up for ascending aortic aneurysm. Obtain echocardiogram. Nurse practitioner note has been reviewed, I agree with documented findings and plan of care. Patient was seen and examined. Objective - Vital Signs Vital signs: Vital Signs Temp 98.4 F 07/30/23 08:00 Pulse 84 07/30/23 11:30 Resp 16 07/30/23 11:30 BP 115/68 07/30/23 11:26 Pulse Ox 100 07/30/23 11:26 FiO2 Intake & Output 07/29/23 07/30/23 07/30/23 18:59 06:59 18:59 Intake Total 1680 180 Output Total 0 11 Balance 1680 -11 180 Intake: Oral 1680 180 Output: Chest Tube Drainage 0 11 Thora-Vent Left 0 11 Other: Voiding Method Toilet # Voids 2 - Labs CBC & Chem 7: 07/27/23 07:49 07/27/23 07:49
--- NOTE | 2023-07-30 14:46 | P.GSCN ---
History of Present Illness Consult date: 07/30/23 Reason for Consult: Persistent spontaneous left pneumothorax Requesting physician: Nasir Guerra History of present illness: This is a 63-year-old gentleman who follows on an outpatient basis with Dr. Amauri Lacey for his primary care and with Dr. Guerra for his COPD management. The patient also sees Dr. Marion for history cardiology care. He has a past medical history significant for coronary artery disease with history of stent placement to his right coronary artery in November 2019, hyperlipidemia, paroxysmal atrial fibrillation on Xarelto for anticoagulation and amiodarone as an outpatient, COPD, testicular cancer back in 1981, chronic ongoing tobacco dependence, daily EtOH use drinks 2-3 beers daily, occasional marijuana use, and GERD. The patient presented to the emergency department here at [facility] on July 26, 2023 with complaints of shortness of breath that was progressively getting worse over 4 to 5-day period. He states that he presented to his family doctors office prior to coming to the emergency department and underwent a chest x-ray and was told he had a partially collapsed lung and was instructed to go directly to the emergency department. The patient also reports he had some dull pain to his left chest just below his nipple line. He denies any recent fever, chills, nausea, vomiting, diarrhea, constipation, hemoptysis, cough, headache, chest pressure, recent trauma, lightheadedness, presyncope or syncope. Initial laboratory results showed a WBC count of 9.6, hemoglobin 13.7, platelets 162, PT 11.6, PTT 30.0, INR 1.1, sodium 137, potassium 4.2, CO2 18, BU N 17, creatinine 1.16, glucose 60, calcium 9.2, magnesium 2.4, AST 27, ALT 17, and albumin 4.6. Initial checks x-ray showed a 50% left-sided pneumothorax. Subsequently, due to the findings of a 50% left-sided pneumothorax a left-sided Thora vent was placed with a repeat chest x-ray showing a residual small left- sided pneumothorax with significant improvement. A twelve-lead EKG was completed which showed normal sinus bradycardia rhythm heart rate 54 bpm. Currently the patient is on room air with oxygen saturations 97%. A left sided Thoravent remains in place on low continuous wall suction -20 cm H2O with an intermittent airleak present. Due to the persistent airleak and persistent right pneumothorax a consult was placed to Dr. Braulio Alba from cardiothoracic surgery for further evaluation and treatment recommendations. Review of Systems A review of systems was completed and was negative except as mentioned in the HPI. Past Medical History Past Medical History: Atrial Fibrillation, Coronary Artery Disease (CAD) ( Previous PCI to his RCA in November 2019), Cancer, COPD, GERD/Reflux, Hyperlipidemia, Osteoarthritis (OA) Additional Past Medical History / Comment(s): Hx Testicular cancer in 1981, new bout of A-fib in post-op after recent colonoscopy, History of Any Multi-Drug Resistant Organisms: None Reported Past Surgical History: Appendectomy, Heart Catheterization With Stent, Orthopedic Surgery Additional Past Surgical History / Comment(s): Right shoulder surgery, right leg surgery with clayton in femur, colonoscopy , right testicle removed in 1981 due to testicular cancer Past Anesthesia/Blood Transfusion Reactions: No Reported Reaction Date of Last Stent Placement:: 12/10/19 Past Psychological History: No Psychological Hx Reported Smoking Status: Current every day smoker Past Alcohol Use History: Daily (Drinks 2-3 beers daily) Past Drug Use History: Marijuana (Daily marijuana use) - Past Family History Father Family Medical History: Cancer Additional Family Medical History / Comment(s): Brain tumor, lung cancer. Mother Family Medical History: Cancer Additional Family Medical History / Comment(s): "Female cancer" Medications and Allergies Home Medications Medication Instructions Recorded Confirmed Type Atorvastatin [Lipitor] 80 mg PO HS #90 tab 12/11/19 07/26/23 Rx Aspirin 81 mg PO DAILY 07/05/21 07/26/23 History Pantoprazole [Protonix] 40 mg PO DAILY 07/05/21 07/26/23 History Amiodarone HCl [Pacerone] 100 mg PO DAILY 07/26/23 07/26/23 History NIFEdipine XL [Procardia Xl] 30 mg PO DAILY 07/26/23 07/26/23 History Rivaroxaban [Xarelto] 20 mg PO HS 07/26/23 07/26/23 History Allergies Allergy/AdvReac Type Severity Reaction Status Date / Time apixaban [From Eliquis] Allergy LIPS AND Verified 07/26/23 11:30 TONGUE NUMBNESS azithromycin [From Zithromax] Allergy LIPS AND Verified 07/26/23 11:30 TONGUE NUMBNESS cephalexin [From Keflex] Allergy LIPS AND Verified 07/26/23 11:30 TONGUE NUMBNESS dexamethasone [From Decadron] Allergy LIPS AND Verified 07/26/23 11:30 TONGUE NUMBNESS digoxin Allergy LIPS AND Verified 07/26/23 11:30 TONGUE NUMBNESS omeprazole [From Prilosec] Allergy LIPS AND Verified 07/26/23 11:30 TONGUE NUMBNESS Surgical - Exam Vital Signs Temp Pulse Resp BP Pulse Ox 97.8 F 52 L 18 144/83 99 07/26/23 11:01 07/26/23 11:01 07/26/23 11:01 07/26/23 11:01 07/26/23 11:01 - General well developed, well nourished, no distress, no pain - Eyes PERRL, normal ocular movement, no pale, no icteric - ENT normal pinna, normal nares, normal mucosa, no hearing loss, no congestion, dentures - Neck Neck is supple, no lymphadenopathy no masses, no bruits, trachea midline, no venous distension - Respiratory Lung sounds essentially clear throughout. No wheezes, rhonchi or crackles. Respirations are symmetrical and nonlabored. Left Thoravent in place to low continuous wall suction -20 cm H2O. Intermittent air leak is present. - Cardiovascular Regular rhythm and rate. S1 and S2 present, negative for S3, gallop or murmur. Remote telemetry showing normal sinus rhythm. - Abdomen Abdomen is soft, nontender nondistended. Active bowel sounds present all 4 a bdominal quadrants. No guarding or rigidity. No organomegaly appreciated. - Genitourinary Deferred - Rectum Deferred - Integumentary Skin is warm and dry. No clubbing or cyanosis is present. no rash, no growths, no abnormal pigmentation - Neurologic No focal deficits. normal coordination, normal sensation - Musculoskeletal Moves all 4 extremities with equal strength bilateral. - Psychiatric oriented to time, oriented to person, oriented to place, speech is normal, memory intact Results - Labs 07/27/23 07:49 07/27/23 07:49 - Imaging Chest x-ray: report reviewed, image reviewed Assessment and Plan Assessment: Persistent spontaneous left pneumothorax, status post Thoravent placement History of coronary artery disease status post PCI to his RCA in November 2019 Paroxysmal atrial fibrillation, on Xarelto for anticoagulation as an outpatient Hyperlipidemia Chronic obstructive pulmonary disease History of testicular cancer back in 1981 Chronic ongoing tobacco dependence Daily EtOH use, drinks 2-3 beers daily Daily marijuana use GERD Plan: The patient was seen and examined at his bedside on the third floor cardiac stepdown unit. His chart and diagnostics reviewed. His case was discussed in detail with Dr. Ortiz Lewis from cardiothoracic surgery. We will obtain a CT scan of his chest to further evaluate his left pneumothorax. Continue Thoravent to low continuous wall suction -20 cm H2O. Encourage use of incentive spirometry 10 times every hour while awake. Discussed with the patient the importance of smoking cessation. Medical management and other comorbidities per primary care service, pulmonary critical care service and cardiology service. O nce the patient CT scan of his chest is completed there will be more recommendations to follow. Thank you Dr. Marks for this consult and we look forward to working with you in the care of this patient. I have personally seen and examined the patient, performed the documentation and the assessment and plan as written. Number of minutes spent on the visit: 30. JOHANA Luis
--- NOTE | 2023-07-30 15:28 | P.PN ---
Subjective Progress Note Date: 07/30/23 Principal diagnosis: Acute spontaneous pneumothorax This is a 63-year-old male patient who came into the emergency department with a spontaneous large left-sided pneumothorax. The patient acutely became short of breath this time was few days back and it progressively got worse. He came into the emergency room he was found to have a large left-sided pneumothorax in the Thora vent was inserted and a subsequent chest x-ray was done following the catheter insertion showed complete reexpansion of the left-sided pneumothorax without any residual abnormalities. The patient remains hemodynamically stable and the patient is currently on 2 L of oxygen by nasal cannula with a pulse ox of 99%. No chest pain. No trauma to the chest. No previous history of pneumothoraces. The patient has history of chronic smoking. The patient has previous history of paroxysmal atrial fibrillation, ascending thoracic aortic aneurysm and previous history of testicular cancer. Also known to have COPD secondary to smoking. His current cardiac rhythm has sinus. His most recent low-dose CAT scan of the chest that was done on 11/10/2022 showed stable ascending thoracic aortic aneurysm measuring 4.3 cm without any significant pulmonary nodules. There is evidence of moderate to severe background COPD/emphysema. 07/27/2023, the patient is being seen for a follow-up. The patient is calm and comfortable. No respiratory distress. Earlier this morning, the patient underwent a chest x-ray that showed less than 10% pneumothorax on the left. There was no evidence of any air leak in the Pleur-evac. Based on that, the wall suction was discontinued. Subsequently, repeat chest x-ray was done and showed enlargement in the left-sided pneumothorax which was in order of 50%. Based on that, I performed manual suctioning of the air and attached the Thora vent again to the Pleur-evac and there was persistent air leak. The patient remained hemodynamically stable. No significant respite distress. BUN is 14 with a creatinine of 1 and electrolytes are all within normal limits. WBC count 7 with a hemoglobin of 12. The patient remains on anticoagulation with Xarelto. Remains on IV fluid normal saline at rate of 75 cc an hour. No chest pain. No other new complaints otherwise for now. No pleurisy. No hemoptysis. On today's evaluation of 07/28/2023, the patient is being seen for a follow-up. The patient is doing extremely well. No specific complaints. The patient pres ented to us with a left-sided pneumothorax. The patient currently has a Thora vent in place. The Thora vent is attached to wall suction the patient continues to have air leak. Repeat chest x-ray was done and the patient was found to have 10 to 15% pneumothorax in the left apex. Otherwise, the patient is doing well. Moderately stable. Pulse ox 97% on room air oxygen. No chest pain. No other significant events overnight. He is using incentive spirometer. He is also on long-term anticoagulation with Xarelto. 07/29/2023, the patient is not having any complaints. Repeat chest x-ray from today shows a stable left apical pneumothorax. The Thora vent is in place and the patient has improved in terms of the air leak although there is some intermittent air leak still present in the Pleur-evac. Manual aspiration of the pneumothorax was done at the bedside. The patient is on room air oxygen. White cell count of 7 with a hemoglobin of 12 and a platelet count of 120. Electrolytes are all within normal limits. The patient has no respiratory complaints otherwise for now. Patient was evaluated today on 07/30/2023, patient is doing well clinically, however he continues to have ongoing air leak and persistent left-sided pneumothorax and spite of Thora vent in place. Patient is on room air, and O2 saturation 97 to 100%. WBC is 7.1 hemoglobin is 12 basic metabolic profile is normal renal profile is normal CT of the chest was ordered by thoracic surgery today, at this point in time his pneumothorax does not seem to be improving, although on his initial presentation when the Serevent was placed, there was a complete reexpansion of the left lung. Objective - Vital Signs Vital signs: Vital Signs Temp 98.4 F 07/30/23 08:00 Pulse 84 07/30/23 11:30 Resp 16 07/30/23 11:30 BP 115/68 07/30/23 11:26 Pulse Ox 100 07/30/23 11:26 FiO2 Intake & Output 07/29/23 07/30/23 07/30/23 18:59 06:59 18:59 Intake Total 1680 760 Output Total 0 11 0 Balance 1680 -11 760 Intake: Oral 1680 760 Output: Chest Tube Drainage 0 11 0 Thora-Vent Left 0 11 0 Other: Voiding Method Toilet Toilet # Voids 2 - Exam General: The patient is awake and alert, in no distress, and does not appear acutely ill. On room air Skin: Skin is warm and dry and no rashes or lesions are noted. Eye: Pupils are equal, round and reactive to light, extra-ocular movements are intact; there is normal conjunctiva bilaterally. Ears, nose, mouth and throat: There are moist mucous membranes and no oral lesions. Neck: The neck is supple, there is no tenderness or JVD. Cardiovascular: There is a regular rate and rhythm. No murmur, rub or gallop is appreciated. Respiratory: Clear bilaterally no rhonchi no wheezes left-sided Thora vent is noted to be in place Gastrointestinal: Soft, non-distended, non-tender abdomen without masses or organomegaly noted. There is no rebound or guarding present. Bowel sounds are unremarkable. Back: There is no tenderness to palpation in the midline. There is no obvious deformity. Musculoskeletal: Normal ROM, no tenderness, There is no pedal edema. There is no calf tenderness or swelling. No cords were appreciated. Neurological: CN II-XII intact, Cranial nerves III through XII are intact. There are no obvious motor or sensory deficits. Coordination appears grossly intact. Speech is normal. Psychiatric: Cooperative, appropriate mood & affect, normal judgment. - Labs CBC & Chem 7: 07/27/23 07:49 07/27/23 07:49 Assessment and Plan Assessment: Impression: Acute spontaneous left-sided pneumothorax, status post Thora vent placement History of underlying severe COPD History of testicular cancer back in 1981 Paroxysmal atrial fibrillation presently in sinus rhythm Hypertension Tobacco dependence syndrome History of ascending thoracic aortic aneurysm measuring 4.2 cm Recommendation: Continue thoravent to low continuous wall suction -20 cm Continue bronchodilators Continue incentive spirometry Counseled regarding smoking cessation Agree with CT of the chest Will continue to Time with Patient: Less than 30
[2023-07-31] MEDS: ACETAMINOPHEN TAB 325 MG TAB PO PRN (08:05)
[2023-07-31 13:14] VITALS: BMI 20.5
--- NOTE | 2023-07-31 13:27 | XR ---
EXAMINATION TYPE: XR chest 1V portable DATE OF EXAM: 07/31/2023 COMPARISON: 07/30/2023 INDICATION: Pneumothorax TECHNIQUE: Single frontal view of the chest is obtained. FINDINGS: The heart size is normal. The pulmonary vasculature is normal. There is improved aeration of the left lung. The pneumothorax has diminished in size compared to ramon or. Left-sided chest tube remains present. IMPRESSION: 1. Diminished left pneumothorax. 2. Improving aeration left lung
--- NOTE | 2023-07-31 13:38 | P.PN ---
Subjective Progress Note Date: 07/31/23 Principal diagnosis: Acute spontaneous pneumothorax This is a 63-year-old male patient who came into the emergency department with a spontaneous large left-sided pneumothorax. The patient acutely became short of breath this time was few days back and it progressively got worse. He came into the emergency room he was found to have a large left-sided pneumothorax in the Thora vent was inserted and a subsequent chest x-ray was done following the catheter insertion showed complete reexpansion of the left-sided pneumothorax without any residual abnormalities. The patient remains hemodynamically stable and the patient is currently on 2 L of oxygen by nasal cannula with a pulse ox of 99%. No chest pain. No trauma to the chest. No previous history of pneumothoraces. The patient has history of chronic smoking. The patient has previous history of paroxysmal atrial fibrillation, ascending thoracic aortic aneurysm and previous history of testicular cancer. Also known to have COPD secondary to smoking. His current cardiac rhythm has sinus. His most recent low-dose CAT scan of the chest that was done on 11/10/2022 showed stable ascending thoracic aortic aneurysm measuring 4.3 cm without any significant pulmonary nodules. There is evidence of moderate to severe background COPD/emphysema. 07/27/2023, the patient is being seen for a follow-up. The patient is calm and comfortable. No respiratory distress. Earlier this morning, the patient underwent a chest x-ray that showed less than 10% pneumothorax on the left. There was no evidence of any air leak in the Pleur-evac. Based on that, the wall suction was discontinued. Subsequently, repeat chest x-ray was done and showed enlargement in the left-sided pneumothorax which was in order of 50%. Based on that, I performed manual suctioning of the air and attached the Thora vent again to the Pleur-evac and there was persistent air leak. The patient remained hemodynamically stable. No significant respite distress. BUN is 14 with a creatinine of 1 and electrolytes are all within normal limits. WBC count 7 with a hemoglobin of 12. The patient remains on anticoagulation with Xarelto. Remains on IV fluid normal saline at rate of 75 cc an hour. No chest pain. No other new complaints otherwise for now. No pleurisy. No hemoptysis. On today's evaluation of 07/28/2023, the patient is being seen for a follow-up. The patient is doing extremely well. No specific complaints. The patient pres ented to us with a left-sided pneumothorax. The patient currently has a Thora vent in place. The Thora vent is attached to wall suction the patient continues to have air leak. Repeat chest x-ray was done and the patient was found to have 10 to 15% pneumothorax in the left apex. Otherwise, the patient is doing well. Moderately stable. Pulse ox 97% on room air oxygen. No chest pain. No other significant events overnight. He is using incentive spirometer. He is also on long-term anticoagulation with Xarelto. 07/29/2023, the patient is not having any complaints. Repeat chest x-ray from today shows a stable left apical pneumothorax. The Thora vent is in place and the patient has improved in terms of the air leak although there is some intermittent air leak still present in the Pleur-evac. Manual aspiration of the pneumothorax was done at the bedside. The patient is on room air oxygen. White cell count of 7 with a hemoglobin of 12 and a platelet count of 120. Electrolytes are all within normal limits. The patient has no respiratory complaints otherwise for now. Patient was evaluated today on 07/30/2023, patient is doing well clinically, however he continues to have ongoing air leak and persistent left-sided pneumothorax and spite of Thora vent in place. Patient is on room air, and O2 saturation 97 to 100%. WBC is 7.1 hemoglobin is 12 basic metabolic profile is normal renal profile is normal CT of the chest was ordered by thoracic surgery today, at this point in time his pneumothorax does not seem to be improving, although on his initial presentation when the Serevent was placed, there was a complete reexpansion of the left lung. Reevaluate today on 07/31/2023, patient continues to have small left apical pneumothorax, continues to have significant air leak, patient was seen by surgery, the plan is to place a chest tube replacing his Thora vent, and may re quire thoracoscopic evaluation and bleb resection in the next couple of days. Clinically however the patient is doing well. Objective - Vital Signs Vital signs: Vital Signs Temp 97.8 F 07/31/23 11:28 Pulse 82 07/31/23 11:58 Resp 16 07/31/23 11:28 BP 114/75 07/31/23 11:28 Pulse Ox 95 07/31/23 11:28 FiO2 Intake & Output 06/17/24 06/18/24 06/18/24 18:59 06:59 18:59 Intake Total 1989 20 Output Total 0 0 0 Balance 1989 200 Weight 72.575 kg Intake: IV 20 20 Invasive Line 1 20 Invasive Line 2 20 Oral 1989 0 180 Output: Chest Tube Drainage 0 0 0 Thora-Vent Left 0 0 0 Other: Voiding Method Toilet Toilet Toilet # Voids 0 2 # Bowel Movements 0 1 - Exam General: The patient is awake and alert, in no distress, and does not appear acutely ill. On room air Skin: Skin is warm and dry and no rashes or lesions are noted. Eye: Pupils are equal, round and reactive to light, extra-ocular movements are intact; there is normal conjunctiva bilaterally. Ears, nose, mouth and throat: There are moist mucous membranes and no oral lesions. Neck: The neck is supple, there is no tenderness or JVD. Cardiovascular: There is a regular rate and rhythm. No murmur, rub or gallop is appreciated. Respiratory: Clear bilaterally no rhonchi no wheezes left-sided Thora vent is noted to be in place Gastrointestinal: Soft, non-distended, non-tender abdomen without masses or organomegaly noted. There is no rebound or guarding present. Bowel sounds are unremarkable. Back: There is no tenderness to palpation in the midline. There is no obvious deformity. Musculoskeletal: Normal ROM, no tenderness, There is no pedal edema. There is no calf tenderness or swelling. No cords were appreciated. Neurological: CN II-XII intact, Cranial nerves III through XII are intact. There are no obvious motor or sensory deficits. Coordination appears grossly intact. Speech is normal. Psychiatric: Cooperative, appropriate mood & affect, normal judgment. - Labs CBC & Chem 7: 07/27/23 07:49 07/27/23 07:49 Assessment and Plan Assessment: Impression: Acute spontaneous left-sided pneumothorax, status post Thora vent placement, persistent air leak and persistent pneumothorax noted History of underlying severe COPD History of testicular cancer back in 1981 Paroxysmal atrial fibrillation presently in sinus rhythm Hypertension Tobacco dependence syndrome History of ascending thoracic aortic aneurysm measuring 4.2 cm Recommendation: Continue thoravent to low continuous wall suction -20 cm Thoracic surgery may consider surgical intervention for his persistent pneumothorax Continue bronchodilators Continue incentive spirometry Counseled regarding smoking cessation CT of the chest was reviewed Will continue to Time with Patient: Less than 30
--- NOTE | 2023-07-31 13:40 | P.PN ---
Subjective Progress Note Date: 07/31/23 HISTORY OF PRESENTING ILLNESS Patient is a 63-year-old who presented to the hospital because of acute onset shortness of breath that started 1 to 2 days and have gotten progressively worse. On admission he was found to have large left-sided pneumothorax. He underwent Thora vent placement with subsequent chest x-ray so showing complete reexpansion of left lung. On admission he was in sinus rhythm with intermittent PACs. July 25, WBC 9.6, hemoglobin 13, creatinine 1.16, 07/29 We have been asked to reassess the patient and his he is still having A-fib with RVR intermittently with sinus bradycardia. He is currently on amiodarone 100 mg daily. Patient is on Xarelto for anticoagulation. We will order echocardiogram which patient does have ordered for the office and we will plan to cancel. 07/30 Patient is seen today in follow-up. Patient states that his breathing is fine. He denies have any palpitations. No chest pain. Blood pressure 114/75, heart rate 5882. Patient is reaching 2250 on incentive spirometry. Early this morning, patient was in atrial fibrillation with RVR but currently in sinus rhythm. He appears to be going into A-fib RVR less frequently. Echocardiogram is pending. PHYSICAL EXAMINATION Vital signs reviewed. Head: Normocephalic. Eyes: Sclerae nonicteric. Neck: Brisk carotid upstroke, no jugular venous distention. Lungs: Clear to auscultation. Left-sided Thora vent in place Heart: Regular rate and rhythm, S1-S2, no S3, no murmur or rub. Abdomen: Soft nontender, positive bowel sounds. Extremities: No edema, intact distal pulses. Neuro: Alert, oritented, no focal deficits. Detailed neuro exam was not performed. ASSESSMENT Paroxysmal atrial fibrillation, alternating between RVR and sinus bradycardia Dilated ascending aorta 4.3 cm Spontaneous pneumothorax because of advanced COPD on left side s/p left-sided Thora vent. COPD Tobacco smoker CAD s/p PCI in the past Nasal bleeding, stable PLAN Continue amiodarone, Xarelto Continue aspirin Lipitor Recommend outpatient follow-up for ascending aortic aneurysm. Obtain echocardiogram. Nurse practitioner note has been reviewed, I agree with documented findings and plan of care. Patient was seen and examined. Objective - Vital Signs Vital signs: Vital Signs Temp 97.8 F 07/31/23 11:28 Pulse 58 L 07/31/23 11:28 Resp 16 07/31/23 11:28 BP 114/75 07/31/23 11:28 Pulse Ox 95 07/31/23 11:28 FiO2 Intake & Output 07/30/23 07/31/23 07/31/23 18:59 06:59 18:59 Intake Total 1989 20 200 Output Total 0 0 0 Balance 1989 20 200 Intake: IV 20 20 Invasive Line 1 20 Invasive Line 2 20 Oral 1989 0 180 Output: Chest Tube Drainage 0 0 0 Thora-Vent Left 0 0 0 Other: Voiding Method Toilet Toilet Toilet # Voids 0 2 # Bowel Movements 0 - Labs CBC & Chem 7: 07/27/23 07:49 07/27/23 07:49
--- NOTE | 2023-07-31 14:42 | P.PN ---
Subjective Progress Note Date: 07/31/23 Pleasant 63-year-old patient, follows with Dr. Lacey. Chronic stable medical condition include atrial fibrillation, COPD, GERD, hypertension, hyperlipidemia, osteoarthritis, testicular cancer 98 2, CAD with stent. Smoker. Patient about 4 days ago became suddenly short of breath. Symptoms progressed per his progress decided to come in. He then had gone to [facility] he was told he has partially collapsed lung chest x-ray done by his PCP resulted him finding out he had pneumothorax Thora vent is placed to suction. On the left side. Also short of breath. Smoker. July 26: Left-sided Thora-vent to drainage. Some shortness of breath. Tolerating diet. X-ray from today shows less than 10% pneumothorax. Continue breathing treatment. 07/27. Patient seen and examined. States breathing is improved. Still has Thora vent in place. Denies any chest pain 07/28. Patient seen and examined. States he feels the same as yesterday, still has Thora vent in place 07/29. Patient seen and examined. Patient gets anxious easily. Patient heart rate was elevated on ambulation. Pulmonology recommended CT surgery evaluation 07/30. Patient seen and examined. Patient has Thora vent, plan is for change it to chest tube. REVIEW OF SYSTEMS: CONSTITUTIONAL: No fever, no malaise,. CARDIOVASCULAR: No chest pain, no palpitations, no syncope. PULMONARY: No shortness of breath, no cough, GASTROINTESTINAL: No diarrhea, no nausea, no vomiting, no abdominal pain. NEUROLOGICAL: No headaches, no weakness, PHYSICAL EXAMINATION: GENERAL: The patient is alert and oriented x3, not in any acute distress. Well developed, well nourished. HEENT: Pupils are round and equally reacting to light. EOMI. No scleral icterus. No conjunctival pallor. Normocephalic, atraumatic. No pharyngeal erythema. No thyromegaly. CARDIOVASCULAR: S1 and S2 present. No murmurs, rubs, or gallops. PULMONARY: Diminished breath sound the bases, left sided Thora vent seen ABDOMEN: Soft, nontender, nondistended, normoactive bowel sounds. No palpable organomegaly. MUSCULOSKELETAL: No joint swelling or deformity. EXTREMITIES: No cyanosis, clubbing, or pedal edema. NEUROLOGICAL: Gross neurological examination did not reveal any focal deficits. SKIN: No rashes. Assessment and plan -Spontaneous pneumothorax in a patient with advanced COPD -COPD and a current smoker -Hyperlipidemia -Paroxysmal atrial fibrillation -Chronic nicotine dependence, cigarette smoker -CAD with a prior history of stent -GERD Monitor vital signs Monitor CBC Monitor CMP Continue telemetry monitoring Encourage use of incentive spirometer S/p left-sided Thora vent Continue amiodarone. Xarelto. Pulmonology following Cardiology following CT surgery planning chest tube placement today with possible thoracotomy on Labs and medication were reviewed.. Continue same treatment. Continue with symptomatic treatment. Resume home medication. Monitor labs and vitals. DVT and GI prophylaxis. Further recommendations as per clinical course of the patient Dictation was produced using [employer] dictation software. please excuse any grammatical, word or spelling errors. Objective - Vital Signs Vital signs: Vital Signs Temp 97.8 F 07/31/23 11:28 Pulse 82 07/31/23 11:58 Resp 16 07/31/23 11:28 BP 114/75 07/31/23 11:28 Pulse Ox 95 07/31/23 11:28 FiO2 Intake & Output 07/30/23 07/31/23 07/31/23 18:59 06:59 18:59 Intake Total 1989 20 200 Output Total 0 0 0 Balance 1989 20 200 Weight 72.575 kg Intake: IV 20 20 Invasive Line 1 20 Invasive Line 2 20 Oral 1989 0 180 Output: Chest Tube Drainage 0 0 0 Thora-Vent Left 0 0 0 Other: Voiding Method Toilet Toilet Toilet # Voids 0 2 # Bowel Movements 0 1 - Labs CBC & Chem 7: 07/27/23 07:49 07/27/23 07:49
--- NOTE | 2023-07-31 15:17 | P.PN ---
Subjective Progress Note Date: 07/31/23 Principal diagnosis: Persistent spontaneous left pneumothorax. Past medical history significant for coronary artery disease with history of stent placement to his right coronary a rtery in November 2019, hyperlipidemia, paroxysmal atrial fibrillation on Xarelto for anticoagulation and amiodarone as an outpatient, COPD, testicular cancer back in 1981, chronic ongoing tobacco dependence, daily EtOH use drinks 2-3 beers daily, occasional marijuana use, and GERD. S/P day#6 placement of Thoravent left chest for spontaneous pneumothorax. The patient was seen in conjunction with Dr. Alba at his bedside on the third floor cardiac stepdown unit today July 31, 2023. The patient is currently sitting up to the bedside chair, is awake, alert, oriented x 3 and is in no acute apparent distress. He denies any complaints of pain or shortness of breath at this time. Oxygen saturations are 97% on room air and is achieving 2500 mL on his incentive spirometry with encouragement. Left Thoravent chest tube remains in place to low continuous wall suction -20 cm H2O. Intermittent air leak is present. Draining scant thin serosanguineous drainage. Remote telemetry is showing normal sinus rhythm heart rate 77 bpm. He remains hemodynamically stable and is currently on no inotropic pressor support. CT scan of the chest without contrast was completed yesterday which demonstrated a left-sided pneumothorax noted estimated at 30 to 40%, left upper lobe pleural catheter noted to be in place, no evidence of mediastinal shift, small left- sided effusion and evidence of subpleural fibrosis bilaterally left greater than right. The findings on the CAT scan were reviewed with the patient by Dr. Alba. Objective - Vital Signs Vital signs: Vital Signs Temp 97.8 F 07/31/23 11:28 Pulse 82 07/31/23 11:58 Resp 16 07/31/23 11:28 BP 114/75 07/31/23 11:28 Pulse Ox 95 07/31/23 11:28 FiO2 Intake & Output 07/30/23 07/31/23 07/31/23 18:59 06:59 18:59 Intake Total 1989 Output Total 0 0 0 Balance 1989 Weight 72.575 kg Intake: IV 20 30 Invasive Line 1 20 Invasive Line 2 30 Oral 1989 0 180 Output: Chest Tube Drainage 0 0 0 Thora-Vent Left 0 0 0 Other: Voiding Method Toilet Toilet Toilet # Voids 0 2 # Bowel Movements 0 1 - Exam CONSTITUTIONAL: Appears comfortable, cooperative, no acute distress RESPIRATORY: Lungs sounds diminished bilaterally. Respirations symmetrical, nonlabored. Currently on room air with oxygen saturation 97%. Able to achieve 2500 mL on incentive spirometry. Strong cough. Left chest Thoravent in place to low continuous wall suction -20 cm H2O. Intermittent air leak is present. Draining scant serosanguineous drainage. CARDIOVASCULAR: S1, S2 present. Regular rate and rhythm, sinus rhythm on telemetry. Palpable peripheral pulses bilaterally. No edema present. No calf pain or tenderness noted. SCDs present. GASTROINTESTINAL: Abdomen soft, nontender, nondistended. Active bowel sounds present 4 quadrants. Tolerating diet. GENITOURINARY: Continues to void clear, yellow urine INTEGUMENTARY: Skin is warm and dry with no evidence of clubbing or cyanosis. NEUROLOGIC: Cranial nerves II through XII intact MUSKULOSKELETAL: Able to move all extremities, strength equal bilaterally, gait normal PSYCHIATRIC: Alert and oriented to person place and time, appropriate affect, intact judgment and insight INVASIVE LINES AND TUBES: Left chest Thoravent in place to low continuous wall suction -20 cm H2O. Intermittent air leak is present. Draining scant serosanguineous drainage. - Allied health notes Allied health notes reviewed: nursing - Labs CBC & Chem 7: 07/27/23 07:49 07/27/23 07:49 - Imaging and Cardiology Chest x-ray: report reviewed, image reviewed CT scan - chest: report reviewed, image reviewed Assessment and Plan Assessment: Persistent spontaneous left pneumothorax, status post Thoravent placement History of coronary artery disease status post PCI to his RCA in November 2019 Paroxysmal atrial fibrillation, on Xarelto for anticoagulation as an outpatient Hyperlipidemia Chronic obstructive pulmonary disease History of testicular cancer back in 1981 Chronic ongoing tobacco dependence Daily EtOH use, drinks 2-3 beers daily Daily marijuana use GERD Plan: Dr. Alba reviewed the findings on the CT scan of the chest with the patient, recommendations are to proceed with a left VATS with mechanical pleurodesis on , August 02, 2023 if the air leak persist. Continue the left Thoravent to low continuous wall suction -20 cm H2O. Monitor for airleak resolution. Continue to record strict output. Encourage use of incentive spirometry 10 times every hour while awake. The importance of risk modification and smoking cessation has been discussed with the patient. We will continue to monitor daily chest x-rays. Medical management other comorbidities per primary care service and other consultants. More recommendations to follow based on patient's clinical course. Time with Patient: Greater than 30
--- NOTE | 2023-08-01 07:32 | XR ---
EXAMINATION TYPE: XR chest 1V portable DATE OF EXAM: 08/01/2023 COMPARISON: 07/31/2023 HISTORY: Follow-up left-sided pneumothorax. FINDINGS: Stable left-sided pneumothorax seen with pleural catheter in place. Hyperinflation compatible with COPD. Stable appearance of the cardio-mediastinal structures at this time. IMPRESSION: 1. Stable portable chest. Clinical correlation and follow up until resolution is recommended.
[2023-08-01 07:39] LABS: Basophils # (A) 0.1 k/uL (0-0.2); Basophils % (A) 1 %; Eosinophils # (A) 0.5 k/uL (0-0.7); Eosinophils % (A) 7 %; HCT 37.4 % (39.0-53.0); HGB 11.9 gm/dL (13.0-17.5); Lymphocytes # (A) 1.1 k/uL (1.0-4.8); Lymphocytes % (A) 16 %; MCH 28.9 pg (25.0-35.0); MCHC 31.9 g/dL (31.0-37.0); MCV 90.6 fL (80.0-100.0); Mean Platelet Volume 10.2; Monocytes # (A) 0.5 k/uL (0-1.0); Monocytes % (A) 7 %; Neutrophils # (A) 4.4 k/uL (1.3-7.7); Neutrophils % (A) 68 %; Platelet Count 147 k/uL (150-450); RBC 4.13 m/uL (4.30-5.90); RDW 14.4 % (11.5-15.5); WBC 6.5 k/uL (3.8-10.6)
[2023-08-01 07:54] LABS: ALT 14 U/L (4-49); AST 21 U/L (17-59); African American GFR (CKD) 87 (>60 ml/min/1.73 sqM); Albumin 3.6 g/dL (3.5-5.0); Alkaline Phosphatase 65 U/L (38-126); Anion Gap 7 mmol/L; Blood Urea Nitrogen 15 mg/dL (9-20); Calcium 8.9 mg/dL (8.4-10.2); Carbon Dioxide 25 mmol/L (22-30); Chloride 107 mmol/L (98-107); Glucose 97 mg/dL (74-99); Non-African American GFR(CKD) 75 (>60 ml/min/1.73 sqM); Potassium 4.5 mmol/L (3.5-5.1); Sodium 139 mmol/L (137-145); Total Bilirubin 0.6 mg/dL (0.2-1.3); Total Protein 5.9 g/dL (6.3-8.2)
--- NOTE | 2023-08-01 08:41 | P.PN ---
Subjective Progress Note Date: 08/01/23 Principal diagnosis: Persistent spontaneous left pneumothorax. Previous medical history of coronary artery disease with history of stent to the RCA in November 2019, hyperlipidemia, paroxysmal atrial fibrillation on Xarelto for anticoagulation and amiodarone as an outpatient, COPD, testicular cancer in 1981, chronic ongoing tobacco dependence, daily EtOH use drinks 2-3 beers daily, occasional marijuana use, and GERD. S/P day#7 placement of Thoravent left chest for spontaneous pneumothorax. The patient was seen and examined this morning sitting up in bed on the cardiac stepdown unit in no acute distress. States pain is controlled on current medication regimen. Chest x-ray reviewed, left-sided pneumothorax remains present. Left-sided Thora vent present to continuous wall suction, occasional intermittent airleak present. Remains in sinus rhythm, hemodynamically stable. Due to continued air leak plan was for patient to go to the operating room tomorrow with Dr. Alba for left VATS with mechanical pleurodesis, however the patient's Xarelto had not been stopped so now he will go on Sunday for surgery. Patient is not thrilled as he would really like to build to go home but does understand the implication of Xarelto and surgery. Objective - Vital Signs Vital signs: Vital Signs Temp 97.8 F 08/01/23 03:45 Pulse 64 08/01/23 03:45 Resp 18 08/01/23 03:45 BP 116/72 08/01/23 03:45 Pulse Ox 98 08/01/23 03:45 FiO2 Intake & Output 07/31/23 08/01/23 08/01/23 18:59 06:59 18:59 Intake Total 390 20 Output Total 0 0 Balance 390 20 Weight 72.575 kg Intake: IV 30 20 Invasive Line 2 30 20 Oral 360 Output: Chest Tube Drainage 0 0 Thora-Vent Left 0 0 Other: Voiding Method Toilet Toilet # Voids 2 2 # Bowel Movements 1 - Exam CONSTITUTIONAL: Appears comfortable, cooperative, no acute distress RESPIRATORY: Lungs sounds diminished bilaterally. Respirations even, nonlabored. Currently on room air with oxygen saturation 98%. Able to achieve 3500 mL on incentive spirometry. Strong cough. CARDIOVASCULAR: S1, S2 present. Regular rate and rhythm, sinus rhythm on telemetry. Palpable peripheral pulses bilaterally. No edema present. No calf pain or tenderness noted. SCDs present. GASTROINTESTINAL: Abdomen soft, nontender, nondistended. Active bowel sounds present 4 quadrants. Tolerating diet. Positive bowel movement 07/30 GENITOURINARY: Continues to void clear, yellow urine INTEGUMENTARY: Skin is warm and dry with evidence of good perfusion NEUROLOGIC: Cranial nerves II through XII intact MUSKULOSKELETAL: Able to move all extremities, strength equal bilaterally, gait normal PSYCHIATRIC: Alert and oriented to person place and time, appropriate affect, intact judgment and insight INVASIVE LINES AND TUBES: Left-sided Thora vent present to continuous wall suction, no drainage, intermittent airleak present - Allied health notes Allied health notes reviewed: nursing - Labs CBC & Chem 7: 08/01/23 06:50 08/01/23 06:50 Labs: Abnormal Lab Results - Last 24 Hours (Table) 08/01/23 08/01/23 Range/Units 06:50 06:50 RBC 4.13 L (4.30-5.90) m/uL Hgb 11.9 L (13.0-17.5) gm/dL Hct 37.4 L (39.0-53.0) % Plt Count 147 L (150-450) k/uL Total Protein 5.9 L (6.3-8.2) g/dL - Imaging and Cardiology Chest x-ray: report reviewed, image reviewed Assessment and Plan Assessment: Persistent spontaneous left pneumothorax, status post placement of left-sided Thora vent History of coronary artery disease with history of stent to the RCA in November 2019 Hyperlipidemia Paroxysmal atrial fibrillation on Xarelto for anticoagulation and amiodarone as an outpatient, last dose of Xarelto 07/30 COPD Testicular cancer in 1981 Chronic ongoing tobacco dependence Daily EtOH use drinks 2-3 beers daily Occasional marijuana use GERD Plan: Continue current medication therapy, Xarelto discontinued Continue Thora-vent to continuous wall suction, monitor for airleak resolution Plan is for left VATS with mechanical pleurodesis on 08/03/2023 if the air leak persist. Encourage use of incentive spirometry 10 times every hour while awake. The importance of risk modification and smoking cessation has been discussed with the patient. Will continue to monitor daily chest x-rays. Medical management of other comorbidities per internal medicine, cardiology, pulmonology More recommendations to follow
--- NOTE | 2023-08-01 11:17 | CA ---
Transthoracic Echo Report Name: Nathan Hamilton Age: 63 Gender: M : 1960 Exam Date: 07/31/2023 15:52 Exam Location: [facility] Ht (in): 74 Wt (lb): 160 Ordering Physician: Esha Dumont Attending/Referring Phys: [id number], Tim Grinder Rema Garzon, LYDIA Procedure CPT: Indications: LVF Cardiac Hx: Technical Quality: Fair Contrast 1: Total Dose (mL): Contrast 2: Total Dose (mL): MEASUREMENTS (Male / Female) Normal Values DOPPLER AV Peak Velocity 128.0 cm/s AV Peak Gradient 6.6 mmHg AV Mean Velocity 89.7 cm/s AV Mean Gradient 3.6 mmHg AV Velocity Time Integral 20.1 cm LVOT Peak Velocity 100.8 cm/s LVOT Peak Gradient 4.1 mmHg LVOT Velocity Time Integral 20.9 cm MV Area PHT 2.6 cm??? Mitral E Point Velocity 40.5 cm/s Mitral A Point Velocity 69.0 cm/s Mitral E to A Ratio 0.6 MV Deceleration Time 286.7 ms PV Peak Velocity 85.9 cm/s PV Peak Gradient 3.0 mmHg FINDINGS Left Ventricle Left ventricular ejection fraction is estimated at 55-60 %. No obvious regional wall motion abnormalities. Right Ventricle Normal right ventricular size and function. Unable to estimate the right ventricular systolic pressure. Right Atrium Normal right atrial size by visual estimate. Left Atrium Normal left atrial size by visual estimate. Mitral Valve Structurally normal mitral valve. No mitral stenosis, regurgitation or prolapse. Aortic Valve Trileaflet aortic valve. No aortic valve stenosis or regurgitation. Tricuspid Valve Structurally normal tricuspid valve. No tricuspid stenosis. Trace tricuspid regurgitation. Pulmonic Valve Structurally normal pulmonic valve. No pulmonic stenosis. No pulmonic regurgitation. Pericardium No pericardial effusion. Aorta Aortic root and proximal ascending aorta not well visualized. CONCLUSIONS Large pneumothorax, only imaging window available was subcostal. Normal LV systolic function Previewed by: Dr. Jim Marion MD (Electronically Signed) Final Date: 01 August 2023 11:16
--- NOTE | 2023-08-01 12:10 | P.PN ---
Subjective Progress Note Date: 08/01/23 Principal diagnosis: Acute spontaneous pneumothorax This is a 63-year-old male patient who came into the emergency department with a spontaneous large left-sided pneumothorax. The patient acutely became short of breath this time was few days back and it progressively got worse. He came into the emergency room he was found to have a large left-sided pneumothorax in the Thora vent was inserted and a subsequent chest x-ray was done following the catheter insertion showed complete reexpansion of the left-sided pneumothorax without any residual abnormalities. The patient remains hemodynamically stable and the patient is currently on 2 L of oxygen by nasal cannula with a pulse ox of 99%. No chest pain. No trauma to the chest. No previous history of pneumothoraces. The patient has history of chronic smoking. The patient has previous history of paroxysmal atrial fibrillation, ascending thoracic aortic aneurysm and previous history of testicular cancer. Also known to have COPD secondary to smoking. His current cardiac rhythm has sinus. His most recent low-dose CAT scan of the chest that was done on 11/10/2022 showed stable ascending thoracic aortic aneurysm measuring 4.3 cm without any significant pulmonary nodules. There is evidence of moderate to severe background COPD/emphysema. 07/27/2023, the patient is being seen for a follow-up. The patient is calm and comfortable. No respiratory distress. Earlier this morning, the patient underwent a chest x-ray that showed less than 10% pneumothorax on the left. There was no evidence of any air leak in the Pleur-evac. Based on that, the wall suction was discontinued. Subsequently, repeat chest x-ray was done and showed enlargement in the left-sided pneumothorax which was in order of 50%. Based on that, I performed manual suctioning of the air and attached the Thora vent again to the Pleur-evac and there was persistent air leak. The patient remained hemodynamically stable. No significant respite distress. BUN is 14 with a creatinine of 1 and electrolytes are all within normal limits. WBC count 7 with a hemoglobin of 12. The patient remains on anticoagulation with Xarelto. Remains on IV fluid normal saline at rate of 75 cc an hour. No chest pain. No other new complaints otherwise for now. No pleurisy. No hemoptysis. On today's evaluation of 07/28/2023, the patient is being seen for a follow-up. The patient is doing extremely well. No specific complaints. The patient pres ented to us with a left-sided pneumothorax. The patient currently has a Thora vent in place. The Thora vent is attached to wall suction the patient continues to have air leak. Repeat chest x-ray was done and the patient was found to have 10 to 15% pneumothorax in the left apex. Otherwise, the patient is doing well. Moderately stable. Pulse ox 97% on room air oxygen. No chest pain. No other significant events overnight. He is using incentive spirometer. He is also on long-term anticoagulation with Xarelto. 07/29/2023, the patient is not having any complaints. Repeat chest x-ray from today shows a stable left apical pneumothorax. The Thora vent is in place and the patient has improved in terms of the air leak although there is some intermittent air leak still present in the Pleur-evac. Manual aspiration of the pneumothorax was done at the bedside. The patient is on room air oxygen. White cell count of 7 with a hemoglobin of 12 and a platelet count of 120. Electrolytes are all within normal limits. The patient has no respiratory complaints otherwise for now. Patient was evaluated today on 07/30/2023, patient is doing well clinically, however he continues to have ongoing air leak and persistent left-sided pneumothorax and spite of Thora vent in place. Patient is on room air, and O2 saturation 97 to 100%. WBC is 7.1 hemoglobin is 12 basic metabolic profile is normal renal profile is normal CT of the chest was ordered by thoracic surgery today, at this point in time his pneumothorax does not seem to be improving, although on his initial presentation when the Serevent was placed, there was a complete reexpansion of the left lung. Reevaluate today on 07/31/2023, patient continues to have small left apical pneumothorax, continues to have significant air leak, patient was seen by surgery, the plan is to place a chest tube replacing his Thora vent, and may re quire thoracoscopic evaluation and bleb resection in the next couple of days. Clinically however the patient is doing well. Seen today on 08/01/2023, continues to have left-sided pneumothorax, continues to have ongoing leak in the Pleur-evac, patient is supposed to have surgery/VATS with mechanical pleurodesis in the next 2 days, patient is now on Xarelto which is placed on hold. Clinically the patient is about the same, in no distress Objective - Vital Signs Vital signs: Vital Signs Temp 97.4 F L 08/01/23 11:36 Pulse 80 08/01/23 12:05 Resp 16 08/01/23 11:36 BP 155/87 08/01/23 11:36 Pulse Ox 95 08/01/23 11:36 FiO2 98 08/01/23 08:00 Intake & Output 07/31/23 08/01/23 08/01/23 18:59 06:59 18:59 Intake Total 390 20 118 Output Total 0 0 Balance 390 20 118 Weight 72.575 kg Intake: IV 30 20 Invasive Line 2 30 20 Oral 360 118 Output: Chest Tube Drainage 0 0 Thora-Vent Left 0 0 Other: Voiding Method Toilet Toilet # Voids 2 2 # Bowel Movements 1 - Exam General: The patient is awake and alert, in no distress, and does not appear acutely ill. On room air Skin: Skin is warm and dry and no rashes or lesions are noted. Eye: Pupils are equal, round and reactive to light, extra-ocular movements are intact; there is normal conjunctiva bilaterally. Ears, nose, mouth and throat: There are moist mucous membranes and no oral lesions. Neck: The neck is supple, there is no tenderness or JVD. Cardiovascular: There is a regular rate and rhythm. No murmur, rub or gallop is appreciated. Respiratory: Clear bilaterally no rhonchi no wheezes left-sided Thora vent is noted to be in place Gastrointestinal: Soft, non-distended, non-tender abdomen without masses or organomegaly noted. There is no rebound or guarding present. Bowel sounds are unremarkable. Back: There is no tenderness to palpation in the midline. There is no obvious deformity. Musculoskeletal: Normal ROM, no tenderness, There is no pedal edema. There is no calf tenderness or swelling. No cords were appreciated. Neurological: CN II-XII intact, Cranial nerves III through XII are intact. There are no obvious motor or sensory deficits. Coordination appears grossly intact. Speech is normal. Psychiatric: Cooperative, appropriate mood & affect, normal judgment. - Labs CBC & Chem 7: 08/01/23 06:50 08/01/23 06:50 Labs: Abnormal Lab Results - Last 24 Hours (Table) 06/19/24 06/19/24 Range/Units 06:50 06:50 RBC 4.13 L (4.30-5.90) m/uL Hgb 11.9 L (13.0-17.5) gm/dL Hct 37.4 L (39.0-53.0) % Plt Count 147 L (150-450) k/uL Total Protein 5.9 L (6.3-8.2) g/dL Assessment and Plan Assessment: Impression: Acute spontaneous left-sided pneumothorax, status post Thora vent placement, persistent air leak and persistent pneumothorax noted History of underlying severe COPD History of testicular cancer back in 1981 Paroxysmal atrial fibrillation presently in sinus rhythm Hypertension Tobacco dependence syndrome History of ascending thoracic aortic aneurysm measuring 4.2 cm Recommendation: Patient is scheduled for VATS and mechanical pleurodesis in 2 days, Xarelto was placed on hold today Continue bronchodilators Continue incentive spirometry Counseled regarding smoking cessation Will continue to Time with Patient: Less than 30
--- NOTE | 2023-08-01 12:58 | P.PN ---
Subjective Progress Note Date: 08/01/23 Pleasant 63-year-old patient, follows with Dr. Lacey. Chronic stable medical condition include atrial fibrillation, COPD, GERD, hypertension, hyperlipidemia, osteoarthritis, testicular cancer 98 2, CAD with stent. Smoker. Patient about 4 days ago became suddenly short of breath. Symptoms progressed per his progress decided to come in. He then had gone to [facility] he was told he has partially collapsed lung chest x-ray done by his PCP resulted him finding out he had pneumothorax Thora vent is placed to suction. On the left side. Also short of breath. Smoker. July 26: Left-sided Thora-vent to drainage. Some shortness of breath. Tolerating diet. X-ray from today shows less than 10% pneumothorax. Continue breathing treatment. 07/27. Patient seen and examined. States breathing is improved. Still has Thora vent in place. Denies any chest pain 07/28. Patient seen and examined. States he feels the same as yesterday, still has Thora vent in place 07/29. Patient seen and examined. Patient gets anxious easily. Patient heart rate was elevated on ambulation. Pulmonology recommended CT surgery evaluation 07/30. Patient seen and examined. Patient has Thora vent, plan is for change it to chest tube. 07/31. Patient seen and examined. CT surgery planning surgery on Sunday. Patient is currently sitting upright in the bed. No acute issues overnight REVIEW OF SYSTEMS: CONSTITUTIONAL: No fever, no malaise,. CARDIOVASCULAR: No chest pain, no palpitations, no syncope. PULMONARY: No shortness of breath, no cough, GASTROINTESTINAL: No diarrhea, no nausea, no vomiting, no abdominal pain. NEUROLOGICAL: No headaches, no weakness, PHYSICAL EXAMINATION: GENERAL: The patient is alert and oriented x3, not in any acute distress. Well developed, well nourished. HEENT: Pupils are round and equally reacting to light. EOMI. No scleral icterus. No conjunctival pallor. Normocephalic, atraumatic. No pharyngeal erythema. No thyromegaly. CARDIOVASCULAR: S1 and S2 present. No murmurs, rubs, or gallops. PULMONARY: Diminished breath sound the bases, left sided Thora vent seen ABDOMEN: Soft, nontender, nondistended, normoactive bowel sounds. No palpable organomegaly. MUSCULOSKELETAL: No joint swelling or deformity. EXTREMITIES: No cyanosis, clubbing, or pedal edema. NEUROLOGICAL: Gross neurological examination did not reveal any focal deficits. SKIN: No rashes. Assessment and plan -Spontaneous pneumothorax in a patient with advanced COPD -COPD and a current smoker -Hyperlipidemia -Paroxysmal atrial fibrillation -Chronic nicotine dependence, cigarette smoker -CAD with a prior history of stent -GERD Monitor vital signs Monitor CBC Monitor CMP Continue telemetry monitoring Encourage use of incentive spirometer S/p left-sided Thora vent Continue amiodarone. Xarelto. Pulmonology following Cardiology following CT surgery planning possible thoracotomy on Sunday Labs and medication were reviewed.. Continue same treatment. Continue with symptomatic treatment. Resume home medication. Monitor labs and vitals. DVT and GI prophylaxis. Further recommendations as per clinical course of the patient Dictation was produced using [employer] dictation software. please excuse any grammatical, word or spelling errors. Objective - Vital Signs Vital signs: Vital Signs Temp 97.4 F L 08/01/23 11:36 Pulse 80 08/01/23 12:16 Resp 16 08/01/23 11:36 BP 155/87 08/01/23 11:36 Pulse Ox 95 08/01/23 11:36 FiO2 98 08/01/23 08:00 Intake & Output 07/31/23 08/01/23 08/01/23 18:59 06:59 18:59 Intake Total 390 20 118 Output Total 0 0 Balance 390 20 118 Weight 72.575 kg Intake: IV 30 20 Invasive Line 2 30 20 Oral 360 118 Output: Chest Tube Drainage 0 0 Thora-Vent Left 0 0 Other: Voiding Method Toilet Toilet # Voids 2 2 # Bowel Movements 1 - Labs CBC & Chem 7: 08/01/23 06:50 08/01/23 06:50 Labs: Abnormal Lab Results - Last 24 Hours (Table) 08/01/23 08/01/23 Range/Units 06:50 06:50 RBC 4.13 L (4.30-5.90) m/uL Hgb 11.9 L (13.0-17.5) gm/dL Hct 37.4 L (39.0-53.0) % Plt Count 147 L (150-450) k/uL Total Protein 5.9 L (6.3-8.2) g/dL
--- NOTE | 2023-08-01 13:52 | P.PN ---
Subjective Progress Note Date: 08/01/23 HISTORY OF PRESENTING ILLNESS Patient is a 63-year-old who presented to the hospital because of acute onset shortness of breath that started 1 to 2 days and have gotten progressively worse. On admission he was found to have large left-sided pneumothorax. He underwent Thora vent placement with subsequent chest x-ray so showing complete reexpansion of left lung. On admission he was in sinus rhythm with intermittent PACs. July 25, WBC 9.6, hemoglobin 13, creatinine 1.16, 07/29 We have been asked to reassess the patient and his he is still having A-fib with RVR intermittently with sinus bradycardia. He is currently on amiodarone 100 mg daily. Patient is on Xarelto for anticoagulation. We will order echocardiogram which patient does have ordered for the office and we will plan to cancel. 07/30 Patient is seen today in follow-up. Patient states that his breathing is fine. He denies have any palpitations. No chest pain. Blood pressure 114/75, heart rate 5882. Patient is reaching 2250 on incentive spirometry. Early this morning, patient was in atrial fibrillation with RVR but currently in sinus rhythm. He appears to be going into A-fib RVR less frequently. Echocardiogram is pending. 07/31 Patient continues to have rise in heart rate with minimal activity but does not seem to be as tachycardic as before. In between atrial fibrillation, patient goes into sinus rhythm sinus bradycardia. He is currently on amiodarone 100 mg daily. Blood pressure 155/87, heart rate 61, pulse ox 95% on room air. Repeat blood works reveals hemoglobin 11.9. BUN 15 creatinine 1.07. Chest x-ray is stable portable chest. Left-sided pneumothorax seen with pleural catheter in place. Patient is scheduled for VATS procedure on Sunday. Echocardiogram reveals large pneumothorax. Normal LV systolic function. PHYSICAL EXAMINATION Vital signs reviewed. Head: Normocephalic. Eyes: Sclerae nonicteric. Neck: Brisk carotid upstroke, no jugular venous distention. Lungs: Clear to auscultation. Left-sided Thora vent in place Heart: Regular rate and rhythm, S1-S2, no S3, no murmur or rub. Abdomen: Soft nontender, positive bowel sounds. Extremities: No edema, intact distal pulses. Neuro: Alert, oritented, no focal deficits. Detailed neuro exam was not performed. ASSESSMENT Paroxysmal atrial fibrillation, alternating between RVR and sinus bradycardia Dilated ascending aorta 4.3 cm Spontaneous pneumothorax because of advanced COPD on left side s/p left-sided Thora vent. COPD Tobacco smoker CAD s/p PCI in the past Nasal bleeding, stable PLAN Continue amiodarone, Xarelto--on hold for VATS procedure scheduled for Sunday Continue aspirin Lipitor Recommend outpatient follow-up for ascending aortic aneurysm. Further recommendations as patient progresses. Nurse practitioner note has been reviewed, I agree with documented findings and plan of care. Patient was seen and examined. Objective - Vital Signs Vital signs: Vital Signs Temp 97.4 F L 08/01/23 11:36 Pulse 61 08/01/23 11:36 Resp 16 08/01/23 11:36 BP 155/87 08/01/23 11:36 Pulse Ox 95 08/01/23 11:36 FiO2 98 08/01/23 08:00 Intake & Output 07/31/23 08/01/23 08/01/23 18:59 06:59 18:59 Intake Total 390 20 118 Output Total 0 0 Balance 390 20 118 Weight 72.575 kg Intake: IV 30 20 Invasive Line 2 30 20 Oral 360 118 Output: Chest Tube Drainage 0 0 Thora-Vent Left 0 0 Other: Voiding Method Toilet Toilet # Voids 2 2 # Bowel Movements 1 - Labs CBC & Chem 7: 08/01/23 06:50 08/01/23 06:50 Labs: Abnormal Lab Results - Last 24 Hours (Table) 08/01/23 08/01/23 Range/Units 06:50 06:50 RBC 4.13 L (4.30-5.90) m/uL Hgb 11.9 L (13.0-17.5) gm/dL Hct 37.4 L (39.0-53.0) % Plt Count 147 L (150-450) k/uL Total Protein 5.9 L (6.3-8.2) g/dL
--- NOTE | 2023-08-02 07:47 | XR ---
EXAMINATION TYPE: XR chest 1V portable DATE OF EXAM: 08/02/2023 HISTORY: POST THORAVENT ASPIRATION, F/U PNEUMOTHORAX COMPARISON: Study from earlier in the day at 6:15 AM. TECHNIQUE: Single view of the chest is submitted. FINDINGS: Large left-sided pneumothorax is essentially unchanged relative to the prior study and is estimated a t greater than 50%. Thoravent is again noted to be in place. There appears to be mild mediastinal dev iation from left to right relative to study from 08/01/2023. There is no evidence for focal infiltrate. The heart is stable. Hilar and mediastinal structures are within normal limits. Degenerative changes are seen of the dorsal spine. IMPRESSION: 1. Large left-sided pneumothorax is essentially unchanged relative to the prior study and is estimat ed at greater than 50%. Thoravent is again noted to be in place. There appears to be mild mediastinal deviation from left to right relative to study from 08/01/2023.
--- NOTE | 2023-08-02 07:49 | XR ---
EXAMINATION TYPE: XR chest 1V portable DATE OF EXAM: 08/02/2023 HISTORY: Pneumothorax follow-up COMPARISON: 08/01/2023 TECHNIQUE: Single view of the chest is submitted. FINDINGS: Significant progression of left-sided pneumothorax estimated at greater than 50%. Pleural catheter is again noted to be in place. No definite mediastinal shift at this time. There is no evidence for focal infiltrate. The heart is stable. Hilar and mediastinal structures are within normal limits. Degenerative changes are seen of the dorsal spine. IMPRESSION: 1. Significant progression of left-sided pneumothorax estimated at greater than 50%. Pleural cathete r is again noted to be in place. No definite mediastinal shift at this time.
[2023-08-02] MEDS: LIDOCAINE 2% (PF) 20 MG/ML 5 ML VIAL ONE ×2 (07:53→08:06)
[2023-08-02] MEDS: LIDOCAINE 2% INJ 20 MG/ML (20 ML MDV) SQ ONE (08:07)
--- NOTE | 2023-08-02 08:23 | XR ---
EXAMINATION TYPE: XR chest 1V portable DATE OF EXAM: 08/02/2023 HISTORY: POST NEW THORAVENT INSERTION COMPARISON: Same day study TECHNIQUE: Single view of the chest is submitted. FINDINGS: Significant interval improvement in left-sided pneumothorax which is now estimated at approximately 1 0%. Apical pleural distance of 1.2 cm versus 4.5 cm previously. Interval new THORAVENT INSERTION. The heart is stable. Hilar and mediastinal structures are within normal limits. No mediastinal shift at this time. Right lung is stable. Degenerative changes are seen of the dorsal spine. IMPRESSION: 1. Significant interval improvement in left-sided pneumothorax which is now estimated at approximate ly 10%. Apical pleural distance of 1.2 cm versus 4.5 cm previously. Interval new THORAVENT INSERTION.
--- NOTE | 2023-08-02 08:54 | P.PN ---
Subjective Progress Note Date: 08/02/23 Principal diagnosis: Persistent spontaneous left pneumothorax. Previous medical history of coronary artery disease with history of stent to the RCA in November 2019, hyperlipidemia, paroxysmal atrial fibrillation on Xarelto for anticoagulation and amiodarone as an outpatient, COPD, testicular cancer in 1981, chronic ongoing tobacco dependence, daily EtOH use drinks 2-3 beers daily, occasional marijuana use, and GERD. S/P day#8 placement of Thoravent left chest for spontaneous pneumothorax, replaced 08/10/[address] Marks due to increased pneumothorax with improvement The patient was seen and examined this morning laying in bed on the cardiac stepdown unit in no acute distress. States pain is controlled on current medication regimen, states he got very little sleep last night. Chest x-ray reviewed, left-sided pneumothorax remains present and increased from yesterday. Pulmonology DIRECTOR ADULT as well as our service tried to aspirate air with T-piece without success. New Thora vent placed by Dr. Marks with improvement in pneumothorax. Remains in sinus rhythm, hemodynamically stable. Plan is for OR tomorrow with Dr. Alba for left VATS with mechanical pleurodesis. Xarelto being held in anticipation of surgery. Objective - Vital Signs Vital signs: Vital Signs Temp 97.6 F 08/02/23 08:07 Pulse 68 08/02/23 08:46 Resp 16 08/02/23 08:07 BP 133/75 08/02/23 08:07 Pulse Ox 99 08/02/23 08:07 FiO2 98 08/01/23 08:00 Intake & Output 08/01/23 08/02/23 08/02/23 18:59 06:59 18:59 Intake Total 1054 10 10 Output Total 700 0 0 Balance 354 10 10 Intake: IV 20 10 10 Invasive Line 2 20 10 10 Oral 1034 Output: Chest Tube Drainage 0 0 0 Thora-Vent Left 0 0 0 Urine 700 Other: Voiding Method Toilet Toilet # Voids 0 - Exam CONSTITUTIONAL: Appears comfortable, cooperative, no acute distress RESPIRATORY: Lungs sounds diminished bilaterally. Respirations even, nonlabored. Currently on room air with oxygen saturation 99%. Able to achieve 3500 mL on incentive spirometry. Strong cough. CARDIOVASCULAR: S1, S2 present. Irregular rate and rhythm, controlled atrial fibrillation on telemetry. Palpable peripheral pulses bilaterally. No edema present. No calf pain or tenderness noted. SCDs present. GASTROINTESTINAL: Abdomen soft, nontender, nondistended. Active bowel sounds present 4 quadrants. Tolerating diet. Positive bowel movement 07/30 GENITOURINARY: Continues to void clear, yellow urine INTEGUMENTARY: Skin is warm and dry with evidence of good perfusion NEUROLOGIC: Cranial nerves II through XII intact MUSKULOSKELETAL: Able to move all extremities, strength equal bilaterally, gait normal PSYCHIATRIC: Alert and oriented to person place and time, appropriate affect, intact judgment and insight INVASIVE LINES AND TUBES: Left-sided Thora vent present to continuous wall suction, no drainage, intermittent airleak present - Allied health notes Allied health notes reviewed: nursing - Labs CBC & Chem 7: 08/01/23 06:50 08/01/23 06:50 - Imaging and Cardiology Chest x-ray: report reviewed, image reviewed Assessment and Plan Assessment: Persistent spontaneous left pneumothorax, status post placement of left-sided Thora vent with replacement 08/02/[address] Marks History of coronary artery disease with history of stent to the RCA in November 2019 Hyperlipidemia Paroxysmal atrial fibrillation on Xarelto for anticoagulation and amiodarone as an outpatient, last dose of Xarelto 07/30 COPD Testicular cancer in 1981 Chronic ongoing tobacco dependence Daily EtOH use drinks 2-3 beers daily Occasional marijuana use GERD Plan: Continue current medication therapy, Xarelto discontinued Continue Thora-vent to continuous wall suction, monitor for airleak resolution Plan is for left VATS with mechanical pleurodesis on 08/03/2023 if the air leak persist. Encourage use of incentive spirometry 10 times every hour while awake. The importance of risk modification and smoking cessation has been discussed with the patient. Will continue to monitor daily chest x-rays. Medical management of other comorbidities per internal medicine, cardiology, pulmonology More recommendations to follow
[2023-08-02] MEDS: HYDROmorphone 1 MG/ML 1 ML SYRINGE IVP PRN (12:06)
--- NOTE | 2023-08-02 12:36 | OP ---
OPERATIVE REPORT DATE OF SERVICE : PROCEDURE PERFORMED: Replacement and placement of a new Thora-Vent chest tube. PREOPERATIVE DIAGNOSES: Recurrent left-sided extensive spontaneous pneumothorax, and previous Thora-vent tube is nonfunctional. POSTOPERATIVE DIAGNOSES: Recurrent left-sided extensive spontaneous pneumothorax, and previous Thora-vent tube is nonfunctional. ANESTHESIA USED: 2 mL of 1% lidocaine. DESCRIPTION OF PROCEDURE: The patient was placed in a sitting upright position, the area of the previous Thora- vent tube was noted, and the Thora-vent tube was removed. Then, the area was prepared in a sterile fashion and drapes were applied. At the same site where the previous Thora-vent was placed, the area was locally anesthetized with lidocaine, and the previous site was basically at the level of the 3rd intercostal space and midclavicular line. The area was infiltrated with lidocaine and then, a size 11 Thora-vent tube was inserted with the trocar advanced until the diaphragm was noted to move on the Thora- vent tube and then, the trocar was removed. The catheter was advanced down fully into the chest/pleural space. There was a definite expansion of the left lung fully, chest x-ray postoperatively showed adequate re-expansion of the left lung, and the Thora-vent was connected to Pleur-Evac. The procedure was well tolerated, no complications. MMODL / IJN: [id number] /
--- NOTE | 2023-08-02 12:57 | XR ---
EXAMINATION TYPE: XR chest 1V portable DATE OF EXAM: 08/02/2023 HISTORY: Follow-up pneumothorax COMPARISON: Same day 8:06 AM TECHNIQUE: Single view of the chest is submitted. FINDINGS: Left-sided pneumothorax continues to diminish in size and is barely perceptible. Pleural catheter rem ains in place. Right lung is stable. The heart is stable. Hilar and mediastinal structures are within normal limits. Degenerative changes are seen of the dorsal spine. IMPRESSION: 1. Left-sided pneumothorax continues to diminish in size and is barely perceptible. Pleural catheter remains in place. Right lung is stable.
--- NOTE | 2023-08-02 14:16 | P.PN ---
Subjective Progress Note Date: 08/02/23 Principal diagnosis: Acute spontaneous pneumothorax This is a 63-year-old male patient who came into the emergency department with a spontaneous large left-sided pneumothorax. The patient acutely became short of breath this time was few days back and it progressively got worse. He came into the emergency room he was found to have a large left-sided pneumothorax in the Thora vent was inserted and a subsequent chest x-ray was done following the catheter insertion showed complete reexpansion of the left-sided pneumothorax without any residual abnormalities. The patient remains hemodynamically stable and the patient is currently on 2 L of oxygen by nasal cannula with a pulse ox of 99%. No chest pain. No trauma to the chest. No previous history of pneumothoraces. The patient has history of chronic smoking. The patient has previous history of paroxysmal atrial fibrillation, ascending thoracic aortic aneurysm and previous history of testicular cancer. Also known to have COPD secondary to smoking. His current cardiac rhythm has sinus. His most recent low-dose CAT scan of the chest that was done on 11/10/2022 showed stable ascending thoracic aortic aneurysm measuring 4.3 cm without any significant pulmonary nodules. There is evidence of moderate to severe background COPD/emphysema. 07/27/2023, the patient is being seen for a follow-up. The patient is calm and comfortable. No respiratory distress. Earlier this morning, the patient underwent a chest x-ray that showed less than 10% pneumothorax on the left. There was no evidence of any air leak in the Pleur-evac. Based on that, the wall suction was discontinued. Subsequently, repeat chest x-ray was done and showed enlargement in the left-sided pneumothorax which was in order of 50%. Based on that, I performed manual suctioning of the air and attached the Thora vent again to the Pleur-evac and there was persistent air leak. The patient remained hemodynamically stable. No significant respite distress. BUN is 14 with a creatinine of 1 and electrolytes are all within normal limits. WBC count 7 with a hemoglobin of 12. The patient remains on anticoagulation with Xarelto. Remains on IV fluid normal saline at rate of 75 cc an hour. No chest pain. No other new complaints otherwise for now. No pleurisy. No hemoptysis. On today's evaluation of 07/28/2023, the patient is being seen for a follow-up. The patient is doing extremely well. No specific complaints. The patient pres ented to us with a left-sided pneumothorax. The patient currently has a Thora vent in place. The Thora vent is attached to wall suction the patient continues to have air leak. Repeat chest x-ray was done and the patient was found to have 10 to 15% pneumothorax in the left apex. Otherwise, the patient is doing well. Moderately stable. Pulse ox 97% on room air oxygen. No chest pain. No other significant events overnight. He is using incentive spirometer. He is also on long-term anticoagulation with Xarelto. 07/29/2023, the patient is not having any complaints. Repeat chest x-ray from today shows a stable left apical pneumothorax. The Thora vent is in place and the patient has improved in terms of the air leak although there is some intermittent air leak still present in the Pleur-evac. Manual aspiration of the pneumothorax was done at the bedside. The patient is on room air oxygen. White cell count of 7 with a hemoglobin of 12 and a platelet count of 120. Electrolytes are all within normal limits. The patient has no respiratory complaints otherwise for now. Patient was evaluated today on 07/30/2023, patient is doing well clinically, however he continues to have ongoing air leak and persistent left-sided pneumothorax and spite of Thora vent in place. Patient is on room air, and O2 saturation 97 to 100%. WBC is 7.1 hemoglobin is 12 basic metabolic profile is normal renal profile is normal CT of the chest was ordered by thoracic surgery today, at this point in time his pneumothorax does not seem to be improving, although on his initial presentation when the Serevent was placed, there was a complete reexpansion of the left lung. Reevaluate today on 07/31/2023, patient continues to have small left apical pneumothorax, continues to have significant air leak, patient was seen by surgery, the plan is to place a chest tube replacing his Thora vent, and may re quire thoracoscopic evaluation and bleb resection in the next couple of days. Clinically however the patient is doing well. Seen today on 08/01/2023, continues to have left-sided pneumothorax, continues to have ongoing leak in the Pleur-evac, patient is supposed to have surgery/VATS with mechanical pleurodesis in the next 2 days, patient is now on Xarelto which is placed on hold. Clinically the patient is about the same, in no distress Patient was evaluated today on 08/02/2023, patient developed large left-sided pneumothorax today, and his Thora vent was nonfunctional in spite of attempts to suction out the pneumothorax manually. This was unsuccessful, hence I went ahead and removed his old Thora vent, and placed a new 1N, with a significant improvement of the pneumothorax. Patient is scheduled for VATS and mechanical pleurodesis tomorrow. Objective - Vital Signs Vital signs: Vital Signs Temp 97.6 F 08/02/23 08:07 Pulse 62 08/02/23 12:09 Resp 16 08/02/23 12:09 BP 119/75 08/02/23 12:09 Pulse Ox 100 08/02/23 12:09 FiO2 98 08/01/23 08:00 Intake & Output 08/01/23 08/02/23 08/02/23 18:59 06:59 18:59 Intake Total 1054 10 550 Output Total 700 0 0 Balance 354 10 550 Intake: IV 20 10 10 Invasive Line 2 20 10 10 Oral 1034 540 Output: Chest Tube Drainage 0 0 0 Thora-Vent Left 0 0 0 Urine 700 Other: Voiding Method Toilet Toilet Toilet # Voids 0 - Exam General: The patient is awake and alert, in no distress, and does not appear acutely ill. On room air, O2 saturation 100%. Skin: Skin is warm and dry and no rashes or lesions are noted. Eye: Pupils are equal, round and reactive to light, extra-ocular movements are intact; there is normal conjunctiva bilaterally. Ears, nose, mouth and throat: There are moist mucous membranes and no oral lesions. Neck: The neck is supple, there is no tenderness or JVD. Cardiovascular: There is a regular rate and rhythm. No murmur, rub or gallop is appreciated. Respiratory: New Thoravent t was placed, lungs are clear bilaterally no crackles rhonchi or wheezes Gastrointestinal: Soft, non-distended, non-tender abdomen without masses or organomegaly noted. There is no rebound or guarding present. Bowel sounds are unremarkable. Back: There is no tenderness to palpation in the midline. There is no obvious deformity. Musculoskeletal: Normal ROM, no tenderness, There is no pedal edema. There is no calf tenderness or swelling. No cords were appreciated. Neurological: CN II-XII intact, Cranial nerves III through XII are intact. There are no obvious motor or sensory deficits. Coordination appears grossly intact. Speech is normal. Psychiatric: Cooperative, appropriate mood & affect, normal judgment. - Labs CBC & Chem 7: 08/01/23 06:50 08/01/23 06:50 Assessment and Plan Assessment: Impression: Acute spontaneous left-sided pneumothorax, status post Thora vent placement, persistent air leak and persistent pneumothorax noted History of underlying severe COPD History of testicular cancer back in 1981 Paroxysmal atrial fibrillation presently in sinus rhythm Hypertension Tobacco dependence syndrome History of ascending thoracic aortic aneurysm measuring 4.2 cm Recommendation: Patient required another Thora vent to be placed today since the old 1 stopped functioning. And the patient developed a large left-sided pneumothorax and had to be addressed at least for now until the patient undergoes VATS and mechanical pleurodesis tomorrow Patient is scheduled for VATS and mechanical pleurodesis in the next 24 hours Continue bronchodilators Continue incentive spirometry Counseled regarding smoking cessation Will continue to Time with Patient: Less than 30
--- NOTE | 2023-08-02 16:07 | P.PN ---
Subjective Progress Note Date: 08/02/23 HISTORY OF PRESENTING ILLNESS Patient is a 63-year-old who presented to the hospital because of acute onset shortness of breath that started 1 to 2 days and have gotten progressively worse. On admission he was found to have large left-sided pneumothorax. He underwent Thora vent placement with subsequent chest x-ray so showing complete reexpansion of left lung. On admission he was in sinus rhythm with intermittent PACs. July 25, WBC 9.6, hemoglobin 13, creatinine 1.16, 07/29 We have been asked to reassess the patient and his he is still having A-fib with RVR intermittently with sinus bradycardia. He is currently on amiodarone 100 mg daily. Patient is on Xarelto for anticoagulation. We will order echocardiogram which patient does have ordered for the office and we will plan to cancel. 07/30 Patient is seen today in follow-up. Patient states that his breathing is fine. He denies have any palpitations. No chest pain. Blood pressure 114/75, heart rate 5882. Patient is reaching 2250 on incentive spirometry. Early this morning, patient was in atrial fibrillation with RVR but currently in sinus rhythm. He appears to be going into A-fib RVR less frequently. Echocardiogram is pending. 07/31 Patient continues to have rise in heart rate with minimal activity but does not seem to be as tachycardic as before. In between atrial fibrillation, patient goes into sinus rhythm sinus bradycardia. He is currently on amiodarone 100 mg daily. Blood pressure 155/87, heart rate 61, pulse ox 95% on room air. Repeat blood works reveals hemoglobin 11.9. BUN 15 creatinine 1.07. Chest x-ray is stable portable chest. Left-sided pneumothorax seen with pleural catheter in place. Patient is scheduled for VATS procedure on Sunday. Echocardiogram reveals large pneumothorax. Normal LV systolic function. 08/01 This morning, patient had Thora vent chest tube replacement as it was nonfuncti onal. This was done by Dr. Marks. Patient is still scheduled tomorrow for left VATS tomorrow. Patient has been in a sinus rhythm with short bursts of A- fib less frequently, less induration and intensity. Patient denies feeling palpitations. Blood pressure 119/75, heart rate 62, pulse ox 100% on room air. PHYSICAL EXAMINATION Vital signs reviewed. Head: Normocephalic. Eyes: Sclerae nonicteric. Neck: Brisk carotid upstroke, no jugular venous distention. Lungs: Clear to auscultation. Left-sided Thora vent in place Heart: Regular rate and rhythm, S1-S2, no S3, no murmur or rub. Abdomen: Soft nontender, positive bowel sounds. Extremities: No edema, intact distal pulses. Neuro: Alert, oritented, no focal deficits. Detailed neuro exam was not performed. ASSESSMENT Paroxysmal atrial fibrillation, alternating between RVR and sinus bradycardia Dilated ascending aorta 4.3 cm Spontaneous pneumothorax because of advanced COPD on left side s/p left-sided Thora vent. COPD Tobacco smoker CAD s/p PCI in the past Nasal bleeding, stable PLAN Continue amiodarone, Xarelto--on hold for VATS procedure scheduled for Sunday Continue aspirin Lipitor Recommend outpatient follow-up for ascending aortic aneurysm. Further recommendations as patient progresses. Nurse practitioner note has been reviewed, I agree with documented findings and plan of care. Patient was seen and examined. Objective - Vital Signs Vital signs: Vital Signs Temp 97.6 F 08/02/23 08:07 Pulse 62 08/02/23 12:09 Resp 16 08/02/23 12:09 BP 119/75 08/02/23 12:09 Pulse Ox 100 08/02/23 12:09 FiO2 98 08/01/23 08:00 Intake & Output 08/01/23 08/02/23 08/02/23 18:59 06:59 18:59 Intake Total 1054 10 550 Output Total 700 0 0 Balance 354 10 550 Intake: IV 20 10 10 Invasive Line 2 20 10 10 Oral 1034 540 Output: Chest Tube Drainage 0 0 0 Thora-Vent Left 0 0 0 Urine 700 Other: Voiding Method Toilet Toilet Toilet # Voids 0 - Labs CBC & Chem 7: 08/01/23 06:50 08/01/23 06:50
--- NOTE | 2023-08-02 16:59 | P.PN ---
Progress Note - Text Progress Note Date: 08/02/23 Chief Complaint: Short of breath Pleasant 63-year-old patient, follows with Dr. Lacey. Chronic stable medical condition include atrial fibrillation, COPD, GERD, hypertension, hyperlipidemia, osteoarthritis, testicular cancer 98 2, CAD with stent. Smoker. Patient about 4 days ago became suddenly short of breath. Symptoms progressed per his progress decided to come in. He then had gone to [facility] he was told he has partially collapsed lung chest x-ray done by his PCP resulted him finding out he had pneumothorax Thora vent is placed to suction. On the left side. Also short of breath. Smoker. July 26: Left-sided Thora-vent to drainage. Some shortness of breath. Tolerating diet. X-ray from today shows less than 10% pneumothorax. Continue breathing treatment. 07/27. Patient seen and examined. States breathing is improved. Still has Thora vent in place. Denies any chest pain 07/28. Patient seen and examined. States he feels the same as yesterday, still has Thora vent in place 07/29. Patient seen and examined. Patient gets anxious easily. Patient heart rate was elevated on ambulation. Pulmonology recommended CT surgery evaluation 07/30. Patient seen and examined. Patient has Thora vent, plan is for change it to chest tube. 07/31. Patient seen and examined. CT surgery planning surgery on Sunday. Patient is currently sitting upright in the bed. No acute issues overnight August 01: Patient underwent replacement of Thora-vent today. Having some local pain. Xarelto has been on hold. Plan for VATS procedure tomorrow. Some shortness of breath. Eating well. Active Medications Acetaminophen (Acetaminophen Tab 325 Mg Tab) 650 mg PO Q6HR PRN PRN Reason: Mild Pain or Fever > 100.5 Last Admin: 07/31/23 08:05 Dose: 650 mg Albuterol/Ipratropium (Ipratropium-Albuterol 3 Ml Neb) 3 ml INHALATION RT-QID ANITA Last Admin: 08/02/23 15:32 Dose: 3 ml Alprazolam (Alprazolam 0.25 Mg Tab) 0.25 mg PO QID PRN PRN Reason: Anxiety Last Admin: 08/02/23 07:52 Dose: 0.25 mg Amiodarone HCl (Amiodarone 100 Mg Tab) 100 mg PO DAILY [facility] Last Admin: 08/02/23 08:18 Dose: 100 mg Aspirin (Aspirin 81 Mg) 81 mg PO DAILY [facility] Last Admin: 08/02/23 08:12 Dose: 81 mg Atorvastatin Calcium (Atorvastatin 80 Mg Tab) 80 mg PO HS [facility] Last Admin: 08/01/23 20:38 Dose: 80 mg Budesonide (Budesonide 1 Mg/2 Ml Nebu) 1 mg INHALATION RT-BID [facility] Last Admin: 08/02/23 08:46 Dose: 1 mg Docusate Sodium (Docusate 100 Mg Cap) 100 mg PO HS [facility] Last Admin: 08/01/23 20:38 Dose: 100 mg Hydromorphone HCl (Hydromorphone 1 Mg/Ml 1 Ml Syringe) 1 mg IVP Q4HR PRN PRN Reason: Pain Last Admin: 08/02/23 12:06 Dose: 1 mg Morphine Sulfate (Morphine Sulfate 4 Mg/Ml Syringe) 4 mg IV Q4HR PRN PRN Reason: Severe Pain (Scale 7 to 10) Last Admin: 08/02/23 08:12 Dose: 4 mg Naloxone HCl (Naloxone 0.4 Mg/Ml 1 Ml Vial) 0.2 mg IV Q2M PRN PRN Reason: Opioid Reversal Nicotine (Nicotine 14mg/24hr Patch) 1 patch TRANSDERM DAILY [facility] Last Admin: 08/02/23 08:07 Dose: Not Given Nifedipine (Nifedipine Xl 30 Mg Tab.Er.24) 30 mg PO DAILY [facility] Last Admin: 08/02/23 08:12 Dose: 30 mg Pantoprazole Sodium (Pantoprazole 40 Mg Tablet) 40 mg PO DAILY [facility] Last Admin: 08/02/23 08:18 Dose: 40 mg Polyethylene Glycol (Polyethylene Glycol 3350 17 Gm Powd.Pack) 17 gm PO BID [facility] Last Admin: 08/02/23 08:12 Dose: 17 gm Sodium Chloride (Saline Nasal Gel 14.1 Gm Tube) 1 applic NASAL Q4HR PRN PRN Reason: Dry Nasal Passages Last Admin: 07/28/23 21:35 Dose: 1 applic Zolpidem Tartrate (Zolpidem 5 Mg Tab) 5 mg PO HS PRN PRN Reason: Insomnia Last Admin: 08/01/23 22:19 Dose: 5 mg Social history: Drinks 2-3 beers a day. . Retired. Smoking for long time currently 3 packs a week Physical examination: VITAL SIGNS: 98, 69, 16, 108 x 61, 96% room air GENERAL: BMI 20.5, thin built laying in bed tired short of breath. EYES: Pupils equal. Conjunctiva simran l. HEENT: External appearance of nose and ears normal, oral cavity grossly normal. NECK: JVD not raised; masses not palpable. HEART: First and second heart sounds are normal; no edema. LUNGS: Respiratory rate increased, diminished breath sounds wheezing, left anterior chest wall Thora-vent to drain ABDOMEN: Soft, nontender, liver spleen not palpable, no masses palpable. PSYCH: Alert and oriented x3; mood and affect simran l. MUSCULOSKELETAL:No Clubbing/cyanosis;muscles-grossly intact INVESTIGATIONS, reviewed in the clinical context: July 31: White count 6.5 hemoglobin 11.9 platelets 147 potassium 4.5 creatinine 1.07 July 26: White count 7.1 hemoglobin 12 platelets 120s potassium 3.9 creatinine 1.07 Chest x-ray film personally reviewed by me-initial film showed left-sided pneumothorax EKG tracing personally reviewed by me-normal sinus rhythm. July 26, 2023: White count 9.6 hemoglobin 13.7 platelets 162 sodium 137 potassium 4.2 creatinine 1.16 Assessment plan: -Spontaneous pneumothorax in a patient with advanced COPD: Recurrent: Slow to respond Left-sided Thora-vent to suction was placed. Repeat 1 was placed on August 01 Plan for VATS procedure on August 02 -COPD and a current smoker DuoNeb. Nebulized Pulmicort -Hyperlipidemia Lipitor 80 mg nightly -Paroxysmal atrial fibrillation Currently in sinus rhythm. Amiodarone. Xarelto. -Chronic nicotine dependence, cigarette smoker -CAD with a prior history of stent Aspirin -GERD Protonix -Full code Xarelto has been on hold. Plan for VATS procedure tomorrow Past Medical History Past Medical History: Atrial Fibrillation, Cancer, COPD, GERD/Reflux, Hyperl ipidemia, Hypertension, Osteoarthritis (OA) Additional Past Medical History / Comment(s): Hx Testicular cancer in 1981, new bout of A-fib in post-op after recent colonoscopy, History of Any Multi-Drug Resistant Organisms: None Reported Past Surgical History: Heart Catheterization With Stent, Orthopedic Surgery Additional Past Surgical History / Comment(s): Right shoulder surgery, right leg surgery with clayton in femur, colonoscopy , Past Anesthesia/Blood Transfusion Reactions: No Reported Reaction Date of Last Stent Placement:: 12/10/19 Past Psychological History: No Psychological Hx Reported Smoking Status: Current every day smoker Past Alcohol Use History: Daily Additional Past Alcohol Use History / Comment(s): Has been smoking since 23 yrs old, 1 PPD. 2-3 BEERS DAILY Past Drug Use History: Marijuana Additional Drug Use History / Comment(s): daily marijuana use
[2023-08-03] MEDS: MIDAZOLAM 2 MG/2 ML VIAL IVP ONE (06:56)
[2023-08-03] MEDS: IV FLUID CONTINUATION 1,000 ML IV ONE ×2 (07:07→07:08)
--- NOTE | 2023-08-03 07:12 | P.ANPRN ---
Procedure Note - Anesthesia - Invasive Line Right Arterial Line Time Out Performed: Yes Date of Procedure: 08/03/23 Time of Procedure: 06:56 Location of Patient: PreOp Preparation: Sterile Prep Arterial Line Location: Radial Ultrasound Used: Yes Purpose - Visualization and Identification of Vasculature: Yes Image Stored and Saved: Yes Narrative: Invasive line placement per sterile protocol utilized. AttemptX1.
[2023-08-03] MEDS: LACTATED RINGERS 1,000 ML BAG IV STA (07:13)
[2023-08-03] MEDS: ONDANSETRON 4 MG/2 ML VIAL IVP STA (07:20)
[2023-08-03] MEDS ORDERED: PHENYLEPHRINE 10 MG/ML VIAL ONE (07:34)
[2023-08-03] MEDS ORDERED: PROPOFOL 10 MG/ML 20 ML VIAL IV ONE (07:34)
[2023-08-03] MEDS ORDERED: GLYCOPYRROLATE 0.2 MG/ML 2 ML VIAL ONE (07:34)
[2023-08-03] MEDS ORDERED: ROCURONIUM 10 MG/ML (5 ML VIAL) IV ONE (07:34)
[2023-08-03] MEDS ORDERED: ceFAZolin 1 GM/50 ML BAG (PMX) ONE (07:34)
[2023-08-03] MEDS ORDERED: SUCCINYLCHOLINE CHLORIDE 200 MG/10 ML VIAL IV ONE (07:34)
[2023-08-03] MEDS ORDERED: NEOSTIGMINE 1 MG/ML 10 ML VIAL ONE (07:34)
[2023-08-03] MEDS ORDERED: LIDOCAINE 1% INJ 10MG/ML (20 ML MDV) ONE (07:34)
[2023-08-03] MEDS ORDERED: ePHEDrine 50 MG/ML 1 ML VIAL ONE (07:34)
[2023-08-03] MEDS ORDERED: ACETAMINOPHEN IV (For NPO) 1,000 MG/100 ML VIAL ONE (07:34)
[2023-08-03] MEDS ORDERED: KETAMINE HCL IN 0.9 % NACL 50 MG/5 ML SYRINGE ONE (07:34)
[2023-08-03] MEDS ORDERED: fentaNYL (PF) 50 MCG/ML 2 ML AMP ONE (07:34)
[2023-08-03] MEDS ORDERED: MIDAZOLAM 2 MG/2 ML VIAL ONE (07:34)
[2023-08-03] MEDS: BUPIVACAINE (PF) 0.5% 30 ML VIAL SQ ONE (08:11)
[2023-08-03] MEDS: HYDROmorphone 0.5 MG/0.5 ML SYRINGE IVP STA (09:42)
--- NOTE | 2023-08-03 10:08 | P.OP ---
Date of Procedure: 08/03/23 Preoperative Diagnosis: Secondary Spontaneous Pneumothorax Postoperative Diagnosis: Same Procedure(s) Performed: 1. Bronchoscopy 2. Left video assisted thorascopic surgery with wedge resection of left upper lobe apex 3. Mechanical pleurodesis 4. Intercostal nerve block - 3 levels Anesthesia: ANDERSONA Surgeon: Braulio Alba Pathology: other (CADE wedge) Condition: stable Disposition: PACU Indications for Procedure: This patient is a 63 year-old M with a hx of COPD who presented with a secondary spontaneous ptx on the left side. He underwent thoravent placement and continued to have a persistent air leak >7 days[address] scan revealed severe COPD with bullous emphysema. Operative Findings: Lung submerged under water. No leak found. Some adhesions near apex involving blebs likely culprit. Apical wedge performed. Description of Procedure: The patient underwent arterial line placement in the pre-operative suite. He was brought back to the operating room and placed in the supine position. General anesthesia was induced and he was intubated with a double lumen tube. Bronchoscopy was performed to confirm placement of the tube and for diagnostic purposes. There was scant secretions but no lesion. The patient was positioned in the right lateral decubitus position, his left chest was prepped and draped in the usual sterile fashion and his left lung was isolated. Antibiotics were given. I made an 2cm incision in the 7th intercostal space posterior axillary line. Entry into the chest was gained under direct vision. I made two additional incisions in the 4th and 9th intercostal spaces anterior and mid axillary lines. 0.25% marcaine was used to perform intercostal nerve blocks at each level. The lung was then submerged under 3L of saline and ventilated. There were no bubbles seen. There was adhesions to the apex which were taken down with hook cautery. This was likely the culprit area. Serial firings of the endo JUAN C re-inforced purple loads were used to wedge out the apex. This was placed in a retrieval bag and sent to pathology. Then, multipe scratch pads were used to perform and complete mechanical pleurodesis of the chest wall. A 28F chest tube was placed and the left lung was re-inflated. There was no air leak. All incisions were jairon sed in layers. Patient was extubated.
--- NOTE | 2023-08-03 10:20 | XR ---
EXAMINATION TYPE: XR chest 1V portable DATE OF EXAM: 08/03/2023 7:29 AM CLINICAL INDICATION:Male, 63 years old with history of pneumothorax; [facility] COMPARISON: Chest radiographs from 08/02/2023 TECHNIQUE: XR chest 1V portable Frontal view of the chest. FINDINGS: Lungs/Pleura: There is no evidence of pleural effusion, focal consolidation, or pneumothorax. Pulmonary vascularity: Unremarkable. Heart/mediastinum: Cardiomediastinal silhouette is unremarkable. Musculoskeletal: No acute osseous pathology. Other findings: Upper abdominal surgical clips. Lines/Tubes: Left thoracotomy tube is present without evidence of pneumothorax. IMPRESSION: Left thoracotomy tube no appreciable pneumothorax.
--- NOTE | 2023-08-03 10:50 | XR ---
EXAMINATION TYPE: XR chest 1V portable DATE OF EXAM: 08/03/2023 9:57 AM CLINICAL INDICATION:Male, 63 years old with history of post op; COMPARISON: Chest radiographs from 08/03/2023 TECHNIQUE: XR chest 1V portable Frontal view of the chest. FINDINGS: Lungs/Pleura: There is no evidence of pleural effusion, focal consolidation, or pneumothorax. Pulmonary vascularity: Unremarkable. Heart/mediastinum: Cardiomediastinal silhouette is unremarkable. Musculoskeletal: No acute osseous pathology. Left thoracotomy tube in place no evidence for pneumothorax. Trace left pleural effusion. IMPRESSION: 1. Left thoracotomy tube small left pleural effusion. No pneumothorax visualized. 2. Chronic changes without acute pulmonary process.
--- NOTE | 2023-08-03 14:45 | P.PN ---
Subjective Progress Note Date: 08/03/23 HISTORY OF PRESENTING ILLNESS Patient is a 63-year-old who presented to the hospital because of acute onset shortness of breath that started 1 to 2 days and have gotten progressively worse. On admission he was found to have large left-sided pneumothorax. He underwent Thora vent placement with subsequent chest x-ray so showing complete reexpansion of left lung. On admission he was in sinus rhythm with intermittent PACs. July 25, WBC 9.6, hemoglobin 13, creatinine 1.16, 07/29 We have been asked to reassess the patient and his he is still having A-fib with RVR intermittently with sinus bradycardia. He is currently on amiodarone 100 mg daily. Patient is on Xarelto for anticoagulation. We will order echocardiogram which patient does have ordered for the office and we will plan to cancel. 07/30 Patient is seen today in follow-up. Patient states that his breathing is fine. He denies have any palpitations. No chest pain. Blood pressure 114/75, heart rate 5882. Patient is reaching 2250 on incentive spirometry. Early this morning, patient was in atrial fibrillation with RVR but currently in sinus rhythm. He appears to be going into A-fib RVR less frequently. Echocardiogram is pending. 07/31 Patient continues to have rise in heart rate with minimal activity but does not seem to be as tachycardic as before. In between atrial fibrillation, patient goes into sinus rhythm sinus bradycardia. He is currently on amiodarone 100 mg daily. Blood pressure 155/87, heart rate 61, pulse ox 95% on room air. Repeat blood works reveals hemoglobin 11.9. BUN 15 creatinine 1.07. Chest x-ray is stable portable chest. Left-sided pneumothorax seen with pleural catheter in place. Patient is scheduled for VATS procedure on Sunday. Echocardiogram reveals large pneumothorax. Normal LV systolic function. 08/01 This morning, patient had Thora vent chest tube replacement as it was nonfuncti onal. This was done by Dr. Marks. Patient is still scheduled tomorrow for left VATS tomorrow. Patient has been in a sinus rhythm with short bursts of A- fib less frequently, less induration and intensity. Patient denies feeling palpitations. Blood pressure 119/75, heart rate 62, pulse ox 100% on room air. 08/02 Patient underwent VATS procedure today. Patient complains of chest pain. He denies shortness of breath. Blood pressure 102/59, heart rate 58, pulse ox 97% on room air. PHYSICAL EXAMINATION Vital signs reviewed. Head: Normocephalic. Eyes: Sclerae nonicteric. Neck: Brisk carotid upstroke, no jugular venous distention. Lungs: Clear to auscultation. Left-sided chest tube. Heart: Regular rate and rhythm, S1-S2, no S3, no murmur or rub. Abdomen: Soft nontender, positive bowel sounds. Extremities: No edema, intact distal pulses. Neuro: Alert, oritented, no focal deficits. Detailed neuro exam was not performed. ASSESSMENT Paroxysmal atrial fibrillation, alternating between RVR and sinus bradycardia, improved Dilated ascending aorta 4.3 cm Spontaneous pneumothorax because of advanced COPD on left side s/p left-sided Thora vent. COPD Tobacco smoker CAD s/p PCI in the past Nasal bleeding, stable PLAN Continue amiodarone, Xarelto--on hold for VATS procedure. We will resume once cleared by CTS, likely on Sunday. Continue aspirin Lipitor Recommend outpatient follow-up for ascending aortic aneurysm. Further recommendations as patient progresses. Nurse practitioner note has been reviewed, I agree with documented findings and plan of care. Patient was seen and examined. Objective - Vital Signs Vital signs: Vital Signs Temp 97.6 F 08/03/23 10:45 Pulse 58 L 08/03/23 11:15 Resp 16 08/03/23 11:15 BP 113/66 08/03/23 11:15 Pulse Ox 96 08/03/23 11:15 FiO2 98 08/01/23 08:00 Intake & Output 08/02/23 08/03/23 08/03/23 18:59 06:59 18:59 Intake Total 1280 20 1020 Output Total 0 0 44 Balance 1280 20 976 Intake: IV 20 20 1020 Invasive Line 2 20 20 10 Invasive Line 3 10 Oral 1260 Output: Chest Tube Drainage 0 0 24 Chest Tube Left 24 Thora-Vent Left 0 0 Estimated Blood Loss 20 Other: Voiding Method Toilet Toilet # Voids 3 0 # Bowel Movements 0 - Labs CBC & Chem 7: 08/01/23 06:50 08/01/23 06:50
--- NOTE | 2023-08-03 14:49 | P.PN ---
Subjective Progress Note Date: 08/03/23 Principal diagnosis: Acute spontaneous pneumothorax This is a 63-year-old male patient who came into the emergency department with a spontaneous large left-sided pneumothorax. The patient acutely became short of breath this time was few days back and it progressively got worse. He came into the emergency room he was found to have a large left-sided pneumothorax in the Thora vent was inserted and a subsequent chest x-ray was done following the catheter insertion showed complete reexpansion of the left-sided pneumothorax without any residual abnormalities. The patient remains hemodynamically stable and the patient is currently on 2 L of oxygen by nasal cannula with a pulse ox of 99%. No chest pain. No trauma to the chest. No previous history of pneumothoraces. The patient has history of chronic smoking. The patient has previous history of paroxysmal atrial fibrillation, ascending thoracic aortic aneurysm and previous history of testicular cancer. Also known to have COPD secondary to smoking. His current cardiac rhythm has sinus. His most recent low-dose CAT scan of the chest that was done on 11/10/2022 showed stable ascending thoracic aortic aneurysm measuring 4.3 cm without any significant pulmonary nodules. There is evidence of moderate to severe background COPD/emphysema. 07/27/2023, the patient is being seen for a follow-up. The patient is calm and comfortable. No respiratory distress. Earlier this morning, the patient underwent a chest x-ray that showed less than 10% pneumothorax on the left. There was no evidence of any air leak in the Pleur-evac. Based on that, the wall suction was discontinued. Subsequently, repeat chest x-ray was done and showed enlargement in the left-sided pneumothorax which was in order of 50%. Based on that, I performed manual suctioning of the air and attached the Thora vent again to the Pleur-evac and there was persistent air leak. The patient remained hemodynamically stable. No significant respite distress. BUN is 14 with a creatinine of 1 and electrolytes are all within normal limits. WBC count 7 with a hemoglobin of 12. The patient remains on anticoagulation with Xarelto. Remains on IV fluid normal saline at rate of 75 cc an hour. No chest pain. No other new complaints otherwise for now. No pleurisy. No hemoptysis. On today's evaluation of 07/28/2023, the patient is being seen for a follow-up. The patient is doing extremely well. No specific complaints. The patient pres ented to us with a left-sided pneumothorax. The patient currently has a Thora vent in place. The Thora vent is attached to wall suction the patient continues to have air leak. Repeat chest x-ray was done and the patient was found to have 10 to 15% pneumothorax in the left apex. Otherwise, the patient is doing well. Moderately stable. Pulse ox 97% on room air oxygen. No chest pain. No other significant events overnight. He is using incentive spirometer. He is also on long-term anticoagulation with Xarelto. 07/29/2023, the patient is not having any complaints. Repeat chest x-ray from today shows a stable left apical pneumothorax. The Thora vent is in place and the patient has improved in terms of the air leak although there is some intermittent air leak still present in the Pleur-evac. Manual aspiration of the pneumothorax was done at the bedside. The patient is on room air oxygen. White cell count of 7 with a hemoglobin of 12 and a platelet count of 120. Electrolytes are all within normal limits. The patient has no respiratory complaints otherwise for now. Patient was evaluated today on 07/30/2023, patient is doing well clinically, however he continues to have ongoing air leak and persistent left-sided pneumothorax and spite of Thora vent in place. Patient is on room air, and O2 saturation 97 to 100%. WBC is 7.1 hemoglobin is 12 basic metabolic profile is normal renal profile is normal CT of the chest was ordered by thoracic surgery today, at this point in time his pneumothorax does not seem to be improving, although on his initial presentation when the Serevent was placed, there was a complete reexpansion of the left lung. Reevaluate today on 07/31/2023, patient continues to have small left apical pneumothorax, continues to have significant air leak, patient was seen by surgery, the plan is to place a chest tube replacing his Thora vent, and may re quire thoracoscopic evaluation and bleb resection in the next couple of days. Clinically however the patient is doing well. Seen today on 08/01/2023, continues to have left-sided pneumothorax, continues to have ongoing leak in the Pleur-evac, patient is supposed to have surgery/VATS with mechanical pleurodesis in the next 2 days, patient is now on Xarelto which is placed on hold. Clinically the patient is about the same, in no distress Patient was evaluated today on 08/02/2023, patient developed large left-sided pneumothorax today, and his Thora vent was nonfunctional in spite of attempts to suction out the pneumothorax manually. This was unsuccessful, hence I went ahead and removed his old Thora vent, and placed a new 1N, with a significant improvement of the pneumothorax. Patient is scheduled for VATS and mechanical pleurodesis tomorrow. Patient was evaluated today on 08/03/2023, patient just came back from VATS with wedge resection of left upper lobe apex/mechanical pleurodesis, patient is doing well, has mostly some postsurgical pain, otherwise no shortness of breath, no cough, no wheezing. No hemoptysis. His postoperative course seems to be relatively uneventful except for pain Objective - Vital Signs Vital signs: Vital Signs Temp 97.6 F 08/03/23 10:45 Pulse 58 L 08/03/23 13:30 Resp 16 08/03/23 13:30 BP 102/59 08/03/23 13:30 Pulse Ox 97 08/03/23 13:30 FiO2 98 08/01/23 08:00 Intake & Output 08/02/23 08/03/23 08/03/23 18:59 06:59 18:59 Intake Total 1280 20 1020 Output Total 0 0 196 Balance 1280 20 824 Intake: IV 20 20 1020 Invasive Line 2 20 20 10 Invasive Line 3 10 Oral 1260 Output: Chest Tube Drainage 0 0 176 Chest Tube Left 176 Thora-Vent Left 0 0 Estimated Blood Loss 20 Other: Voiding Method Toilet Toilet Toilet # Voids 3 0 # Bowel Movements 0 - Exam General: The patient is awake and alert, in no distress, and does not appear acutely ill. On room air, O2 saturation 100%. Skin: Skin is warm and dry and no rashes or lesions are noted. Eye: Pupils are equal, round and reactive to light, extra-ocular movements are intact; there is normal conjunctiva bilaterally. Ears, nose, mouth and throat: There are moist mucous membranes and no oral lesions. Neck: The neck is supple, there is no tenderness or JVD. Cardiovascular: There is a regular rate and rhythm. No murmur, rub or gallop is appreciated. Respiratory: thoravent has been removed, now there is a right-sided chest tube in place connected to Pleur-evac, no air leak noted Gastrointestinal: Soft, non-distended, non-tender abdomen without masses or organomegaly noted. There is no rebound or guarding present. Bowel sounds are unremarkable. Back: There is no tenderness to palpation in the midline. There is no obvious deformity. Musculoskeletal: Normal ROM, no tenderness, There is no pedal edema. There is no calf tenderness or swelling. No cords were appreciated. Neurological: CN II-XII intact, Cranial nerves III through XII are intact. There are no obvious motor or sensory deficits. Coordination appears grossly intact. Speech is normal. Psychiatric: Cooperative, appropriate mood & affect, normal judgment. - Labs CBC & Chem 7: 08/01/23 06:50 08/01/23 06:50 Assessment and Plan Assessment: Impression: Status post left video-assisted thoracoscopic surgery with wedge resection of left upper lobe apex and mechanical pleurodesis postoperative day #0 Acute spontaneous left-sided pneumothorax, status post Thora vent placement, x 2 History of underlying severe COPD History of testicular cancer back in 1981 Paroxysmal atrial fibrillation presently in sinus rhythm Hypertension Tobacco dependence syndrome History of ascending thoracic aortic aneurysm measuring 4.2 cm Recommendation: Pain medications for pain control Continue chest tube to suction Supportive care measures Continue bronchodilators Continue incentive spirometry Counseled regarding smoking cessation Will continue to follow Time with Patient: Less than 30
--- NOTE | 2023-08-03 15:53 | P.PN ---
Progress Note - Text Progress Note Date: 08/03/23 Chief Complaint: Short of breath Pleasant 63-year-old patient, follows with Dr. Lacey. Chronic stable medical condition include atrial fibrillation, COPD, GERD, hypertension, hyperlipidemia, osteoarthritis, testicular cancer 98 2, CAD with stent. Smoker. Patient about 4 days ago became suddenly short of breath. Symptoms progressed per his progress decided to come in. He then had gone to [facility] he was told he has partially collapsed lung chest x-ray done by his PCP resulted him finding out he had pneumothorax Thora vent is placed to suction. On the left side. Also short of breath. Smoker. July 26: Left-sided Thora-vent to drainage. Some shortness of breath. Tolerating diet. X-ray from today shows less than 10% pneumothorax. Continue breathing treatment. 07/27. Patient seen and examined. States breathing is improved. Still has Thora vent in place. Denies any chest pain 07/28. Patient seen and examined. States he feels the same as yesterday, still has Thora vent in place 07/29. Patient seen and examined. Patient gets anxious easily. Patient heart rate was elevated on ambulation. Pulmonology recommended CT surgery evaluation 07/30. Patient seen and examined. Patient has Thora vent, plan is for change it to chest tube. 07/31. Patient seen and examined. CT surgery planning surgery on Sunday. Patient is currently sitting upright in the bed. No acute issues overnight August 01: Patient underwent replacement of Thora-vent today. Having some local pain. Xarelto has been on hold. Plan for VATS procedure tomorrow. Some shortness of breath. Eating well. August 02: Today patient is taken by cardiothoracic surgery Dr. Alba and patient underwent bronchoscopy followed by left video-assisted thoracoscopic surgery with wedge resection of the upper left lobe apex and mechanical pleurodesis. Postprocedure patient attached to chest tube. Some pain at the local site. Active Medications Acetaminophen (Acetaminophen Tab 325 Mg Tab) 650 mg PO Q6HR PRN PRN Reason: Mild Pain or Fever > 100.5 Last Admin: 07/31/23 08:05 Dose: 650 mg Albuterol/Ipratropium (Ipratropium-Albuterol 3 Ml Neb) 3 ml INHALATION RT-QID ANITA Last Admin: 08/03/23 12:13 Dose: 3 ml Alprazolam (Alprazolam 0.25 Mg Tab) 0.25 mg PO QID PRN PRN Reason: Anxiety Last Admin: 08/02/23 07:52 Dose: 0.25 mg Amiodarone HCl (Amiodarone 100 Mg Tab) 100 mg PO DAILY [facility] Last Admin: 08/03/23 11:51 Dose: 100 mg Aspirin (Aspirin 81 Mg) 81 mg PO DAILY [facility] Last Admin: 08/03/23 11:51 Dose: 81 mg Atorvastatin Calcium (Atorvastatin 80 Mg Tab) 80 mg PO HS [facility] Last Admin: 08/02/23 20:28 Dose: 80 mg Budesonide (Budesonide 1 Mg/2 Ml Nebu) 1 mg INHALATION RT-BID [facility] Last Admin: 08/03/23 08:48 Dose: Not Given Docusate Sodium (Docusate 100 Mg Cap) 100 mg PO HS [facility] Last Admin: 08/02/23 20:28 Dose: 100 mg Hydromorphone HCl (Hydromorphone 1 Mg/Ml 1 Ml Syringe) 1 mg IVP Q4HR PRN PRN Reason: Pain Last Admin: 08/03/23 11:52 Dose: 1 mg Morphine Sulfate (Morphine Sulfate 4 Mg/Ml Syringe) 4 mg IV Q4HR PRN PRN Reason: Severe Pain (Scale 7 to 10) Last Admin: 08/02/23 08:12 Dose: 4 mg Naloxone HCl (Naloxone 0.4 Mg/Ml 1 Ml Vial) 0.2 mg IV Q2M PRN PRN Reason: Opioid Reversal Nicotine (Nicotine 14mg/24hr Patch) 1 patch TRANSDERM DAILY [facility] Last Admin: 08/03/23 10:10 Dose: Not Given Nifedipine (Nifedipine Xl 30 Mg Tab.Er.24) 30 mg PO DAILY [facility] Last Admin: 08/03/23 11:45 Dose: Not Given Pantoprazole Sodium (Pantoprazole 40 Mg Tablet) 40 mg PO DAILY [facility] Last Admin: 08/03/23 11:51 Dose: 40 mg Polyethylene Glycol (Polyethylene Glycol 3350 17 Gm Powd.Pack) 17 gm PO BID [facility] Last Admin: 08/03/23 12:10 Dose: 17 gm Sodium Chloride (Saline Nasal Gel 14.1 Gm Tube) 1 applic NASAL Q4HR PRN PRN Reason: Dry Nasal Passages Last Admin: 06/15/24 21:35 Dose: 1 applic Zolpidem Tartrate (Zolpidem 5 Mg Tab) 5 mg PO HS PRN PRN Reason: Insomnia Last Admin: 08/02/23 20:32 Dose: 5 mg Social history: Drinks 2-3 beers a day. . Retired. Smoking for long time currently 3 packs a week Physical examination: VITAL SIGNS: Afebrile, 58, 16, 102/59, 97% room air GENERAL: thin built laying in bed tired short of breath. EYES: Pupils equal. Conjunctiva normal. HEENT: External appearance of nose and ears normal, oral cavity grossly normal. NECK: JVD not raised; masses not palpable. HEART: First and second heart sounds are normal; no edema. LUNGS: Respiratory rate increased, fair air entry. Left chest wall tube ABDOMEN: Soft, nontender, liver spleen not palpable, no masses palpable. PSYCH: Alert and oriented x3; mood and affect sleepy MUSCULOSKELETAL:No Clubbing/cyanosis;muscles-grossly intact INVESTIGATIONS, reviewed in the clinical context: July 31: White count 6.5 hemoglobin 11.9 platelets 147 potassium 4.5 creatinine 1.07 July 26: White count 7.1 hemoglobin 12 platelets 120s potassium 3.9 creatinine 1.07 Chest x-ray film personally reviewed by me-initial film showed left-sided pneumothorax EKG tracing personally reviewed by me-normal sinus rhythm. July 26, 2023: White count 9.6 hemoglobin 13.7 platelets 162 sodium 137 potassium 4.2 creatinine 1.16 Assessment plan: -Spontaneous pneumothorax in a patient with advanced COPD: Recurrent: Slow to respond Left-sided Thora-vent to suction was placed. Repeat 1 was placed on August 01 August 02: Left lung lobe upper apex wedge resection. Mechanical pleurodesis. Left chest tube placed, by Dr. Chelle Alba -COPD and a current smoker DuoNeb. Nebulized Pulmicort -Hyperlipidemia Lipitor 80 mg nightly -Paroxysmal atrial fibrillation Currently in sinus rhythm. Amiodarone. Xarelto. -Chronic nicotine dependence, cigarette smoker -CAD with a prior history of stent Aspirin -GERD Protonix -Full code Xarelto to be resumed when okay with surgical team. Other medications to continue. Past Medical History Past Medical History: Atrial Fibrillation, Cancer, COPD, GERD/Reflux, Hyperlipidemia, Hypertension, Osteoarthritis (OA) Additional Past Medical History / Comment(s): Hx Testicular cancer in 1981, new bout of A-fib in post-op after recent colonoscopy, History of Any Multi-Drug Resistant Organisms: None Reported Past Surgical History: Heart Catheterization With Stent, Orthopedic Surgery Additional Past Surgical History / Comment(s): Right shoulder surgery, right leg surgery with clayton in femur, colonoscopy , Past Anesthesia/Blood Transfusion Reactions: No Reported Reaction Date of Last Stent Placement:: 12/10/19 Past Psychological History: No Psychological Hx Reported Smoking Status: Current every day smoker Past Alcohol Use History: Daily Additional Past Alcohol Use History / Comment(s): Has been smoking since 23 yrs old, 1 PPD. 2-3 BEERS DAILY Past Drug Use History: Marijuana Additional Drug Use History / Comment(s): daily marijuana use
[2023-08-03] MEDS: METOPROLOL TARTRATE 50 MG TAB PO STA (18:29)
[2023-08-03] MEDS: AMIODARONE 100 MG TAB PO STA (18:29)
[2023-08-03] MEDS: LIDOCAINE 2% INJ 20 MG/ML (10 ML MDV) SQ STA (19:05)
--- NOTE | 2023-08-04 07:27 | P.PN ---
Subjective Progress Note Date: 08/04/23 Principal diagnosis: Persistent spontaneous left pneumothorax. Previous medical history of coronary artery disease with history of stent to the RCA in November 2019, hyperlipidemia, paroxysmal atrial fibrillation on Xarelto for anticoagulation and amiodarone as an outpatient, COPD, testicular cancer in 1981, chronic ongoing tobacco dependence, daily EtOH use drinks 2-3 beers daily, occasional marijuana use, and GERD. S/P day#10 placement of Thoravent left chest for spontaneous pneumothorax, replaced 08/10/[address] Marks due to increased pneumothorax with improvement POD #1 bronchoscopy, left video assisted thorascopic surgery with wedge resection of left upper lobe apex, mechanical pleurodesis, intercostal nerve block - 3 levels The patient was seen and examined this morning laying in bed on the cardiac stepdown unit in no acute distress. States pain is mostly controlled on current medication regimen. Chest x-ray reviewed, stable. Left chest tube present to continuous wall suction with no airleak present, 475 mL output with additional drainage around the chest tube site since surgery yesterday. Remains in sinus rhythm, hemodynamically stable. Will plan to leave chest tube to continuous suction until tomorrow, then will place to waterseal. If no airleak and lung remains expanded will discontinue chest tube on Sunday and will restart his Xarelto at that time. Objective - Vital Signs Vital signs: Vital Signs Temp 97.8 F 08/04/23 04:00 Pulse 60 08/04/23 04:00 Resp 16 08/04/23 04:00 BP 104/61 08/04/23 04:00 Pulse Ox 95 08/04/23 04:00 FiO2 98 08/01/23 08:00 Intake & Output 08/03/23 08/04/23 08/04/23 18:59 06:59 18:59 Intake Total 1138 40 Output Total 306 1790 Balance 832 -1750 Intake: IV 1020 40 Invasive Line 2 10 20 Invasive Line 3 10 20 Oral 118 Output: Chest Tube Drainage 286 190 Chest Tube Left 286 190 Urine 1600 Estimated Blood Loss 20 Other: Voiding Method Toilet Toilet # Voids 0 # Bowel Movements 0 - Exam CONSTITUTIONAL: Appears comfortable, cooperative, no acute distress RESPIRATORY: Lungs sounds diminished bilaterally. Respirations even, nonlabored. Currently on room air with oxygen saturation 94%. Able to achieve 3500 mL on incentive spirometry. Strong cough. CARDIOVASCULAR: S1, S2 present. Regular rate and rhythm, sinus rhythm on telemetry. Palpable peripheral pulses bilaterally. No edema present. No calf pain or tenderness noted. SCDs present. GASTROINTESTINAL: Abdomen soft, nontender, nondistended. Active bowel sounds present 4 quadrants. Tolerating diet. Positive bowel movement 07/30 GENITOURINARY: Continues to void clear, yellow urine INTEGUMENTARY: Skin is warm and dry with evidence of good perfusion NEUROLOGIC: Cranial nerves II through XII intact MUSKULOSKELETAL: Able to move all extremities, strength equal bilaterally, gait normal PSYCHIATRIC: Alert and oriented to person place and time, appropriate affect, intact judgment and insight INVASIVE LINES AND TUBES: Left-sided pleural chest tube present to continuous wall suction, no airleak present, 100 mL serosanguineous drainage overnight, 475 mL since surgery - Allied health notes Allied health notes reviewed: nursing - Labs CBC & Chem 7: 08/01/23 06:50 08/01/23 06:50 - Imaging and Cardiology Chest x-ray: image reviewed Assessment and Plan Assessment: Persistent spontaneous left pneumothorax, status post placement of left-sided Thora vent with replacement 08/02/[address] Marks, status post left VATS with mechanical pleurodesis History of coronary artery disease with history of stent to the RCA in November 2019 Hyperlipidemia Paroxysmal atrial fibrillation on Xarelto for anticoagulation and amiodarone as an outpatient, last dose of Xarelto 07/30 COPD Testicular cancer in 1981 Chronic ongoing tobacco dependence Daily EtOH use drinks 2-3 beers daily Occasional marijuana use GERD Plan: Continue current medication therapy, will restart Xarelto after chest tube discontinuation Continue chest tube to continuous wall suction until tomorrow, will remove from suction tomorrow, if remains stable will discontinue chest tube Sunday Encourage use of incentive spirometry 10 times every hour while awake Increase activity, ambulate as tolerated. May add extension tubing to allow patient to ambulate in his room The importance of risk modification and smoking cessation has been discussed with the patient. Will continue to monitor daily chest x-rays. Medical management of other comorbidities per internal medicine, cardiology, pulmonology More recommendations to follow
[2023-08-04 08:59] LABS: African American GFR (CKD) >90 (>60 ml/min/1.73 sqM); Anion Gap 4 mmol/L; Blood Urea Nitrogen 15 mg/dL (9-20); Calcium 8.5 mg/dL (8.4-10.2); Carbon Dioxide 23 mmol/L (22-30); Chloride 104 mmol/L (98-107); Glucose 99 mg/dL (74-99); Non-African American GFR(CKD) 81 (>60 ml/min/1.73 sqM); Potassium 4.2 mmol/L (3.5-5.1); Sodium 131 mmol/L (137-145)
[2023-08-04 09:08] LABS: Basophils # (A) 0.1 k/uL (0-0.2); Basophils % (A) 1 %; Eosinophils # (A) 0.3 k/uL (0-0.7); Eosinophils % (A) 4 %; HCT 37.8 % (39.0-53.0); HGB 11.8 gm/dL (13.0-17.5); Hypochromasia Slight; Lymphocytes # (A) 0.7 k/uL (1.0-4.8); Lymphocytes % (A) 10 %; MCH 29.5 pg (25.0-35.0); MCHC 31.3 g/dL (31.0-37.0); MCV 94.4 fL (80.0-100.0); Monocytes # (A) 0.5 k/uL (0-1.0); Monocytes % (A) 7 %; Neutrophils # (A) 5.6 k/uL (1.3-7.7); Neutrophils % (A) 78 %; Platelet Count 170 k/uL (150-450); RDW 14.3 % (11.5-15.5); WBC 7.2 k/uL (3.8-10.6)
--- NOTE | 2023-08-04 09:39 | XR ---
EXAMINATION TYPE: XR chest 1V portable DATE OF EXAM: 08/04/2023 COMPARISON: 08/03/2023 INDICATION: Post VATS TECHNIQUE: Single frontal view of the chest is obtained. FINDINGS: The heart size is normal. The pulmonary vasculature is normal. There is increased density in the left knee is. Increased left upper lobe infiltrate is present. Farzad elate for pneumonia. Underlying mediastinal mass is not excluded. Chest tube is on the left directed towards the apex. No pneumothorax is evident. IMPRESSION: 1. Left-sided chest tube. No pneumothorax evident. 2. Medial left upper lobe infiltrate. Correlate for atelectasis. 3. Mediastinal mass not excluded. Follow-up recommended
--- NOTE | 2023-08-04 12:04 | P.PN ---
Subjective Progress Note Date: 08/04/23 Principal diagnosis: Acute spontaneous pneumothorax This is a 63-year-old male patient who came into the emergency department with a spontaneous large left-sided pneumothorax. The patient acutely became short of breath this time was few days back and it progressively got worse. He came into the emergency room he was found to have a large left-sided pneumothorax in the Thora vent was inserted and a subsequent chest x-ray was done following the catheter insertion showed complete reexpansion of the left-sided pneumothorax without any residual abnormalities. The patient remains hemodynamically stable and the patient is currently on 2 L of oxygen by nasal cannula with a pulse ox of 99%. No chest pain. No trauma to the chest. No previous history of pneumothoraces. The patient has history of chronic smoking. The patient has previous history of paroxysmal atrial fibrillation, ascending thoracic aortic aneurysm and previous history of testicular cancer. Also known to have COPD secondary to smoking. His current cardiac rhythm has sinus. His most recent low-dose CAT scan of the chest that was done on 11/10/2022 showed stable ascending thoracic aortic aneurysm measuring 4.3 cm without any significant pulmonary nodules. There is evidence of moderate to severe background COPD/emphysema. 07/27/2023, the patient is being seen for a follow-up. The patient is calm and comfortable. No respiratory distress. Earlier this morning, the patient underwent a chest x-ray that showed less than 10% pneumothorax on the left. There was no evidence of any air leak in the Pleur-evac. Based on that, the wall suction was discontinued. Subsequently, repeat chest x-ray was done and showed enlargement in the left-sided pneumothorax which was in order of 50%. Based on that, I performed manual suctioning of the air and attached the Thora vent again to the Pleur-evac and there was persistent air leak. The patient remained hemodynamically stable. No significant respite distress. BUN is 14 with a creatinine of 1 and electrolytes are all within normal limits. WBC count 7 with a hemoglobin of 12. The patient remains on anticoagulation with Xarelto. Remains on IV fluid normal saline at rate of 75 cc an hour. No chest pain. No other new complaints otherwise for now. No pleurisy. No hemoptysis. On today's evaluation of 07/28/2023, the patient is being seen for a follow-up. The patient is doing extremely well. No specific complaints. The patient pres ented to us with a left-sided pneumothorax. The patient currently has a Thora vent in place. The Thora vent is attached to wall suction the patient continues to have air leak. Repeat chest x-ray was done and the patient was found to have 10 to 15% pneumothorax in the left apex. Otherwise, the patient is doing well. Moderately stable. Pulse ox 97% on room air oxygen. No chest pain. No other significant events overnight. He is using incentive spirometer. He is also on long-term anticoagulation with Xarelto. 07/29/2023, the patient is not having any complaints. Repeat chest x-ray from today shows a stable left apical pneumothorax. The Thora vent is in place and the patient has improved in terms of the air leak although there is some intermittent air leak still present in the Pleur-evac. Manual aspiration of the pneumothorax was done at the bedside. The patient is on room air oxygen. White cell count of 7 with a hemoglobin of 12 and a platelet count of 120. Electrolytes are all within normal limits. The patient has no respiratory complaints otherwise for now. Patient was evaluated today on 07/30/2023, patient is doing well clinically, however he continues to have ongoing air leak and persistent left-sided pneumothorax and spite of Thora vent in place. Patient is on room air, and O2 saturation 97 to 100%. WBC is 7.1 hemoglobin is 12 basic metabolic profile is normal renal profile is normal CT of the chest was ordered by thoracic surgery today, at this point in time his pneumothorax does not seem to be improving, although on his initial presentation when the Serevent was placed, there was a complete reexpansion of the left lung. Reevaluate today on 07/31/2023, patient continues to have small left apical pneumothorax, continues to have significant air leak, patient was seen by surgery, the plan is to place a chest tube replacing his Thora vent, and may re quire thoracoscopic evaluation and bleb resection in the next couple of days. Clinically however the patient is doing well. Seen today on 08/01/2023, continues to have left-sided pneumothorax, continues to have ongoing leak in the Pleur-evac, patient is supposed to have surgery/VATS with mechanical pleurodesis in the next 2 days, patient is now on Xarelto which is placed on hold. Clinically the patient is about the same, in no distress Patient was evaluated today on 08/02/2023, patient developed large left-sided pneumothorax today, and his Thora vent was nonfunctional in spite of attempts to suction out the pneumothorax manually. This was unsuccessful, hence I went ahead and removed his old Thora vent, and placed a new 1N, with a significant improvement of the pneumothorax. Patient is scheduled for VATS and mechanical pleurodesis tomorrow. Patient was evaluated today on 08/03/2023, patient just came back from VATS with wedge resection of left upper lobe apex/mechanical pleurodesis, patient is doing well, has mostly some postsurgical pain, otherwise no shortness of breath, no cough, no wheezing. No hemoptysis. His postoperative course seems to be relatively uneventful except for pain Patient was reevaluated today on 08/04/2023, patient is status post VATS with wedge resection of left upper lobe apex and mechanical pleurodesis. Doing great, has some vague aches and pains, not in any distress, continues to have chest tube in place, there is no evidence of leak. X-ray is reassuring, no evidence of pneumothorax Objective - Vital Signs Vital signs: Vital Signs Temp 98.0 F 08/04/23 11:51 Pulse 68 08/04/23 11:51 Resp 16 08/04/23 11:51 BP 101/60 08/04/23 11:51 Pulse Ox 93 L 08/04/23 11:51 FiO2 98 08/01/23 08:00 Intake & Output 08/03/23 08/04/23 08/04/23 18:59 06:59 18:59 Intake Total 1138 40 380 Output Total 306 1790 10 Balance 832 -1750 370 Intake: IV 1020 40 20 Invasive Line 2 10 20 10 Invasive Line 3 10 20 10 Oral 118 360 Output: Chest Tube Drainage 286 190 10 Chest Tube Left 286 190 10 Urine 1600 0 Estimated Blood Loss 20 Other: Voiding Method Toilet Toilet Toilet # Voids 0 # Bowel Movements 0 - Exam General: The patient is awake and alert, in no distress, and does not appear acutely ill. Skin: Skin is warm and dry and no rashes or lesions are noted. Eye: Pupils are equal, round and reactive to light, extra-ocular movements are intact; there is normal conjunctiva bilaterally. Ears, nose, mouth and throat: There are moist mucous membranes and no oral lesions. Neck: The neck is supple, there is no tenderness or JVD. Cardiovascular: There is a regular rate and rhythm. No murmur, rub or gallop is appreciated. Respiratory: Left-sided chest tube is in place, no evidence of leak noted in the Pleur-evac Gastrointestinal: Soft, non-distended, non-tender abdomen without masses or organomegaly noted. There is no rebound or guarding present. Bowel sounds are unremarkable. Back: There is no tenderness to palpation in the midline. There is no obvious deformity. Musculoskeletal: Normal ROM, no tenderness, There is no pedal edema. There is no calf tenderness or swelling. No cords were appreciated. Neurological: CN II-XII intact, Cranial nerves III through XII are intact. There are no obvious motor or sensory deficits. Coordination appears grossly intact. Speech is normal. Psychiatric: Cooperative, appropriate mood & affect, normal judgment. - Labs CBC & Chem 7: 08/04/23 08:13 08/04/23 08:13 Labs: Abnormal Lab Results - Last 24 Hours (Table) 08/04/23 08/04/23 Range/Units 08:13 08:13 RBC 4.00 L (4.30-5.90) m/uL Hgb 11.8 L (13.0-17.5) gm/dL Hct 37.8 L (39.0-53.0) % Lymphocytes # 0.7 L (1.0-4.8) k/uL Sodium 131 L (137-145) mmol/L Assessment and Plan Assessment: Impression: Status post left video-assisted thoracoscopic surgery with wedge resection of left upper lobe apex and mechanical pleurodesis postoperative day #1 Acute spontaneous left-sided pneumothorax, status post Thora vent placement, x 2 History of underlying severe COPD History of testicular cancer back in 1981 Paroxysmal atrial fibrillation presently in sinus rhythm Hypertension Tobacco dependence syndrome History of ascending thoracic aortic aneurysm measuring 4.2 cm Recommendation: Pain medications for pain control Continue chest tube to suction Supportive care measures Continue bronchodilators Continue incentive spirometry Counseled regarding smoking cessation Will continue to follow Time with Patient: Less than 30
[2023-08-04] MEDS ORDERED: HEPARIN SODIUM 1,000 UN/ML (10ML VL) IV PRN (12:50)
--- NOTE | 2023-08-04 13:41 | P.PN ---
Subjective HISTORY OF PRESENT ILLNESS: Patient is a 63-year-old who presented to the hospital because of acute onset shortness of breath that started 1 to 2 days and have gotten progressively worse. On admission he was found to have large left-sided pneumothorax. He underwent Thora vent placement with subsequent chest x-ray so showing complete reexpansion of left lung. On admission he was in sinus rhythm with intermittent PACs. July 25, WBC 9.6, hemoglobin 13, creatinine 1.16, 07/29 We have been asked to reassess the patient and his he is still having A-fib with RVR intermittently with sinus bradycardia. He is currently on amiodarone 100 mg daily. Patient is on Xarelto for anticoagulation. We will order echocardiogram which patient does have ordered for the office and we will plan to cancel. 07/30 Patient is seen today in follow-up. Patient states that his breathing is fine. He denies have any palpitations. No chest pain. Blood pressure 114/75, heart rate 5882. Patient is reaching 2250 on incentive spirometry. Early this morning, patient was in atrial fibrillation with RVR but currently in sinus rhythm. He appears to be going into A-fib RVR less frequently. Echocardiogram is pending. 07/31 Patient continues to have rise in heart rate with minimal activity but does not seem to be as tachycardic as before. In between atrial fibrillation, patient goes into sinus rhythm sinus bradycardia. He is currently on amiodarone 100 mg daily. Blood pressure 155/87, heart rate 61, pulse ox 95% on room air. Repeat blood works reveals hemoglobin 11.9. BUN 15 creatinine 1.07. Chest x-ray is stable portable chest. Left-sided pneumothorax seen with pleural catheter in place. Patient is scheduled for VATS procedure on Sunday. Echocardiogram reveals large pneumothorax. Normal LV systolic function. 08/01 This morning, patient had Thora vent chest tube replacement as it was nonfunctional. This was done by Dr. Marks. Patient is still scheduled tomorrow for left VATS tomorrow. Patient has been in a sinus rhythm with short bursts of A-fib less frequently, less induration and intensity. Patient denies feeling palpitations. Blood pressure 119/75, heart rate 62, pulse ox 100% on room air. 08/02 Patient underwent VATS procedure today. Patient complains of chest pain. He denies shortness of breath. Blood pressure 102/59, heart rate 58, pulse ox 97% on room air. 08/04/2023 Patient examined this morning at the bedside. Patient currently denies chest pain or pressure. He denies shortness of breath. Telemetry reveals sinus rhythm. Patient Xarelto remains on hold. Patient remains with chest tube to suction today. PHYSICAL EXAM: VITAL SIGNS: Reviewed. GENERAL: Well-developed in no acute distress. NECK: Supple. No JVD or thyromegaly LUNGS: Respirations even and unlabored. Lungs essentially clear to auscultation bilaterally. HEART: Regular rate and rhythm. S1 and S2 heard. Chest tube noted. EXTREMITIES: Normal range of motion. No clubbing or cyanosis. Peripheral pulses intact. No lower extremity edema ASSESSMENT: Paroxysmal atrial fibrillation, alternating between RVR and sinus bradycardia, improved Dilated ascending aorta 4.3 cm Persistent spontaneous left pneumothorax secondary to advanced COPD Status post left-sided Thora vent with replacement 08/02/2023 Status post VATS, 08/03/2023 Coronary artery disease with previous stenting of the RCA, November 2019 COPD Nicotine dependence Daily alcohol use Nasal bleeding, stable PLAN: Continue current cardiac medications Increase amiodarone to 200 mg daily Patient's chest tube likely not being removed until Sunday. His Xarelto remains on hold. Begin IV heparin in the meantime. Case discussed with CT surgery who is okay with beginning IV heparin Continue telemetry monitoring Further recommendations pending patient course Nurse practitioner note has been reviewed by physician. Signing provider agrees with the documented findings, assessment, and plan of care documented by SOLUTION ADVISOR as a scribe. Objective - Vital Signs Vital signs: Vital Signs Temp 97.8 F 08/04/23 08:00 Pulse 66 08/04/23 08:00 Resp 16 08/04/23 08:00 BP 111/55 08/04/23 08:00 Pulse Ox 93 L 08/04/23 08:00 FiO2 98 08/01/23 08:00 Intake & Output 08/03/23 08/04/23 08/04/23 18:59 06:59 18:59 Intake Total 1138 40 380 Output Total 306 1790 0 Balance 832 -1750 380 Intake: IV 1020 40 20 Invasive Line 2 10 20 10 Invasive Line 3 10 20 10 Oral 118 360 Output: Chest Tube Drainage 286 190 Chest Tube Left 286 190 Urine 1600 0 Estimated Blood Loss 20 Other: Voiding Method Toilet Toilet Toilet # Voids 0 # Bowel Movements 0 - Labs CBC & Chem 7: 08/04/23 08:13 08/04/23 08:13 Labs: Abnormal Lab Results - Last 24 Hours (Table) 08/04/23 08/04/23 Range/Units 08:13 08:13 RBC 4.00 L (4.30-5.90) m/uL Hgb 11.8 L (13.0-17.5) gm/dL Hct 37.8 L (39.0-53.0) % Lymphocytes # 0.7 L (1.0-4.8) k/uL Sodium 131 L (137-145) mmol/L
[2023-08-04] MEDS: HEPARIN SOD,PORK IN 0.45% NACL 25,000 UNIT in 0.45% NACL 1 250ML.BAG IV SCH (13:53)
[2023-08-04] MEDS: HEPARIN SODIUM 1,000 UN/ML (10ML VL) IV ONE (13:53)
[2023-08-04 13:54] LABS: Basophils # (A) 0.1 k/uL (0-0.2); Basophils % (A) 1 %; Eosinophils # (A) 0.4 k/uL (0-0.7); Eosinophils % (A) 4 %; HGB 12.5 gm/dL (13.0-17.5); Lymphocytes # (A) 1.3 k/uL (1.0-4.8); Lymphocytes % (A) 14 %; MCH 29.4 pg (25.0-35.0); MCHC 32.2 g/dL (31.0-37.0); MCV 91.4 fL (80.0-100.0); Mean Platelet Volume 10.1; Monocytes # (A) 0.6 k/uL (0-1.0); Monocytes % (A) 6 %; Neutrophils # (A) 6.9 k/uL (1.3-7.7); Neutrophils % (A) 74 %; Platelet Count 217 k/uL (150-450); RBC 4.26 m/uL (4.30-5.90); RDW 14.4 % (11.5-15.5); WBC 9.4 k/uL (3.8-10.6)
[2023-08-04 14:13] LABS: Partial Thromboplastin Time 27.2 sec (22.0-30.0); Prothrombin Time 11.3 sec (10.0-12.5)
--- NOTE | 2023-08-04 15:00 | P.PN ---
Progress Note - Text Progress Note Date: 08/04/23 Chief Complaint: Short of breath Pleasant 63-year-old patient, follows with Dr. Lacey. Chronic stable medical condition include atrial fibrillation, COPD, GERD, hypertension, hyperlipidemia, osteoarthritis, testicular cancer 98 2, CAD with stent. Smoker. Patient about 4 days ago became suddenly short of breath. Symptoms progressed per his progress decided to come in. He then had gone to [facility] he was told he has partially collapsed lung chest x-ray done by his PCP resulted him finding out he had pneumothorax Thora vent is placed to suction. On the left side. Also short of breath. Smoker. July 26: Left-sided Thora-vent to drainage. Some shortness of breath. Tolerating diet. X-ray from today shows less than 10% pneumothorax. Continue breathing treatment. 07/27. Patient seen and examined. States breathing is improved. Still has Thora vent in place. Denies any chest pain 07/28. Patient seen and examined. States he feels the same as yesterday, still has Thora vent in place 07/29. Patient seen and examined. Patient gets anxious easily. Patient heart rate was elevated on ambulation. Pulmonology recommended CT surgery evaluation 07/30. Patient seen and examined. Patient has Thora vent, plan is for change it to chest tube. 07/31. Patient seen and examined. CT surgery planning surgery on Sunday. Patient is currently sitting upright in the bed. No acute issues overnight August 01: Patient underwent replacement of Thora-vent today. Having some local pain. Xarelto has been on hold. Plan for VATS procedure tomorrow. Some shortness of breath. Eating well. August 02: Today patient is taken by cardiothoracic surgery Dr. Alba and patient underwent bronchoscopy followed by left video-assisted thoracoscopic surgery with wedge resection of the upper left lobe apex and mechanical pleurodesis. Postprocedure patient attached to chest tube. Some pain at the local site. August 03: Patient had run of A-fib overnight. Otherwise chest pain incision site is better. Tolerating diet. Had a bowel movement yesterday. On IV heparin. Xarelto on hold Active Medications Acetaminophen (Acetaminophen Tab 325 Mg Tab) 650 mg PO Q6HR PRN PRN Reason: Mild Pain or Fever > 100.5 Last Admin: 07/31/23 08:05 Dose: 650 mg Albuterol/Ipratropium (Ipratropium-Albuterol 3 Ml Neb) 3 ml INHALATION RT-QID [facility] Last Admin: 08/04/23 11:06 Dose: Not Given Alprazolam (Alprazolam 0.25 Mg Tab) 0.25 mg PO QID PRN PRN Reason: Anxiety Last Admin: 08/02/23 07:52 Dose: 0.25 mg Amiodarone HCl (Amiodarone 200 Mg Tab) 200 mg PO DAILY [facility] Aspirin (Aspirin 81 Mg) 81 mg PO DAILY [facility] Last Admin: 08/04/23 08:02 Dose: 81 mg Atorvastatin Calcium (Atorvastatin 80 Mg Tab) 80 mg PO HS [facility] Last Admin: 08/03/23 21:53 Dose: 80 mg Budesonide (Budesonide 1 Mg/2 Ml Nebu) 1 mg INHALATION RT-BID [facility] Last Admin: 08/04/23 07:39 Dose: 1 mg Docusate Sodium (Docusate 100 Mg Cap) 100 mg PO HS [facility] Last Admin: 08/03/23 22:00 Dose: Not Given Heparin Sodium (Porcine) (Heparin Sodium 1,000 Un/Ml (10ml Vl)) 0 unit IV PER PROTOCOL PRN; Protocol PRN Reason: Low PTT Hydromorphone HCl (Hydromorphone 1 Mg/Ml 1 Ml Syringe) 1 mg IVP Q4HR PRN PRN Reason: Pain Last Admin: 08/04/23 11:54 Dose: 1 mg Heparin Sodium/Sodium Chloride (25,000 unit/ Sodium Chloride) 250 mls @ 8.709 mls/hr IV .Q24H [facility]; Protocol Last Admin: 08/04/23 13:53 Dose: 12 units/kg/hr, 8.709 mls/hr Morphine Sulfate (Morphine Sulfate 4 Mg/Ml Syringe) 4 mg IV Q4HR PRN PRN Reason: Severe Pain (Scale 7 to 10) Last Admin: 08/03/23 23:43 Dose: 4 mg Naloxone HCl (Naloxone 0.4 Mg/Ml 1 Ml Vial) 0.2 mg IV Q2M PRN PRN Reason: Opioid Reversal Nicotine (Nicotine 14mg/24hr Patch) 1 patch TRANSDERM DAILY [facility] Last Admin: 08/04/23 07:54 Dose: Not Given Nifedipine (Nifedipine Xl 30 Mg Tab.Er.24) 30 mg PO DAILY [facility] Last Admin: 08/04/23 12:02 Dose: Not Given Pantoprazole Sodium (Pantoprazole 40 Mg Tablet) 40 mg PO DAILY [facility] Last Admin: 08/04/23 08:02 Dose: 40 mg Polyethylene Glycol (Polyethylene Glycol 3350 17 Gm Powd.Pack) 17 gm PO BID [facility] Last Admin: 08/04/23 08:02 Dose: 17 gm Sodium Chloride (Saline Nasal Gel 14.1 Gm Tube) 1 applic NASAL Q4HR PRN PRN Reason: Dry Nasal Passages Last Admin: 07/28/23 21:35 Dose: 1 applic Zolpidem Tartrate (Zolpidem 5 Mg Tab) 5 mg PO HS PRN PRN Reason: Insomnia Last Admin: 08/03/23 21:53 Dose: 5 mg Social history: Drinks 2-3 beers a day. . Retired. Smoking for long time currently 3 packs a week Physical examination: VITAL SIGNS: 98, 68, 16, 101/60, 93% room air GENERAL: Reclining in bed. HEENT: External appearance of nose and ears normal, oral cavity grossly normal. NECK: JVD not raised; masses not palpable. HEART: First and second heart sounds are normal; no edema. LUNGS: Respiratory rate increased, fair air entry. Left chest wall tube ABDOMEN: Soft, nontender, liver spleen not palpable, no masses palpable. PSYCH: Alert and oriented x3; mood and affect sleepy MUSCULOSKELETAL:No Clubbing/cyanosis;muscles-grossly intact INVESTIGATIONS, reviewed in the clinical context: August 03: White count 9.4 hemoglobin 12.5 July 31: White count 6.5 hemoglobin 11.9 platelets 147 potassium 4.5 creatinine 1.07 July 26: White count 7.1 hemoglobin 12 platelets 120s potassium 3.9 creatinine 1.07 Chest x-ray film personally reviewed by me-initial film showed left-sided pneumothorax EKG tracing personally reviewed by me-normal sinus rhythm. July 26, 2023: White count 9.6 hemoglobin 13.7 platelets 162 sodium 137 potassium 4.2 creatinine 1.16 Assessment plan: -Spontaneous pneumothorax in a patient with advanced COPD: Recurrent: Slow to respond Left-sided Thora-vent to suction was placed. Repeat 1 was placed on August 01 August 02: Left lung lobe upper apex wedge resection. Mechanical pleurodesis. Le ft chest tube placed, by Dr. Chelle Alba -COPD and a current smoker DuoNeb. Nebulized Pulmicort -Hyperlipidemia Lipitor 80 mg nightly -Paroxysmal atrial fibrillation Currently in sinus rhythm. Amiodarone. Xarelto.-Currently held -IV heparin monitoring Follow PTT -Chronic nicotine dependence, cigarette smoker -CAD with a prior history of stent Aspirin -GERD Protonix -Full code Remains on IV heparin. Other medications to continue. Have the patient sit up in a chair. Past Medical History Past Medical History: Atrial Fibrillation, Cancer, COPD, GERD/Reflux, Hyperlipidemia, Hypertension, Osteoarthritis (OA) Additional Past Medical History / Comment(s): Hx Testicular cancer in 1981, new bout of A-fib in post-op after recent colonoscopy, History of Any Multi-Drug Resistant Organisms: None Reported Past Surgical History: Heart Catheterization With Stent, Orthopedic Surgery Additional Past Surgical History / Comment(s): Right shoulder surgery, right leg surgery with clayton in femur, colonoscopy , Past Anesthesia/Blood Transfusion Reactions: No Reported Reaction Date of Last Stent Placement:: 12/10/19 Past Psychological History: No Psychological Hx Reported Smoking Status: Current every day smoker Past Alcohol Use History: Daily Additional Past Alcohol Use History / Comment(s): Has been smoking since 23 yrs old, 1 PPD. 2-3 BEERS DAILY Past Drug Use History: Marijuana Additional Drug Use History / Comment(s): daily marijuana use
[2023-08-04] MEDS: TAMSULOSIN 0.4 MG CAP.ER.24H PO SCH (17:33)
[2023-08-04] MEDS: LIDOCAINE 2% URO-JET JELLY 5 ML KIT URETHRAL ONE (17:33)
[2023-08-05 07:00] LABS: Basophils % (A) 0 %; Eosinophils # (A) 0.2 k/uL (0-0.7); Eosinophils % (A) 3 %; HCT 32.1 % (39.0-53.0); HGB 10.5 gm/dL (13.0-17.5); Lymphocytes # (A) 0.9 k/uL (1.0-4.8); Lymphocytes % (A) 13 %; MCH 29.2 pg (25.0-35.0); MCHC 32.7 g/dL (31.0-37.0); MCV 89.3 fL (80.0-100.0); Mean Platelet Volume 9.8; Monocytes # (A) 0.6 k/uL (0-1.0); Monocytes % (A) 8 %; Neutrophils % (A) 74 %; Platelet Count 152 k/uL (150-450); RBC 3.59 m/uL (4.30-5.90); RDW 14.3 % (11.5-15.5); WBC 6.7 k/uL (3.8-10.6)
[2023-08-05 07:03] LABS: INR 1.1 (<1.2); Prothrombin Time 11.8 sec (10.0-12.5)
--- NOTE | 2023-08-05 07:39 | XR ---
EXAMINATION TYPE: XR chest 1V portable DATE OF EXAM: 08/05/2023 COMPARISON: 08/04/2023 INDICATION: Pneumothorax TECHNIQUE: Single frontal view of the chest is obtained. FINDINGS: The heart size is normal. The pulmonary vasculature is normal. There is an infiltrate in the left upper lobe. Some prominence of the left superior mediastinum remai ns present. Chest tube is present. No pneumothorax is identified. Some minimal joint may be at the ri ght base. Subsegmental atelectasis could be considered. IMPRESSION: 1. Stable left upper lobe infiltrate with prominence of the superior mediastinum. 2. No pneumothorax. Left-sided chest tube remains in position. 3. Minimal subsegmental atelectasis better visualize right lung base.
--- NOTE | 2023-08-05 08:08 | P.PN ---
Subjective Progress Note Date: 08/05/23 Principal diagnosis: Persistent spontaneous left pneumothorax. Previous medical history of coronary artery disease with history of stent to the RCA in November 2019, hyperlipidemia, paroxysmal atrial fibrillation on Xarelto for anticoagulation and amiodarone as an outpatient, COPD, testicular cancer in 1981, chronic ongoing tobacco dependence, daily EtOH use drinks 2-3 beers daily, occasional marijuana use, and GERD. S/P day#11 placement of Thoravent left chest for spontaneous pneumothorax, replaced 08/10/[address] Marks due to increased pneumothorax with improvement POD #2 bronchoscopy, left video assisted thorascopic surgery with wedge resection of left upper lobe apex, mechanical pleurodesis, intercostal nerve block - 3 levels The patient was seen and examined this morning laying in bed on the cardiac stepdown unit in no acute distress. States pain is mostly controlled on current medication regimen. Chest x-ray reviewed, stable. Left chest tube present to continuous wall suction with no airleak present, 100 mL output with additional drainage around the chest tube site in the last 24 hours. Remains in sinus rhythm, hemodynamically stable. Chest tube placed to waterseal. If no airleak and lung remains expanded will discontinue chest tube on Sunday and will restart his Xarelto at that time. Objective - Vital Signs Vital signs: Vital Signs Temp 98.2 F 08/05/23 04:00 Pulse 80 08/05/23 04:00 Resp 18 08/05/23 04:00 BP 115/74 08/05/23 04:00 Pulse Ox 96 08/05/23 04:00 FiO2 98 08/01/23 08:00 Intake & Output 08/04/23 08/05/23 08/05/23 18:59 06:59 18:59 Intake Total 958 20 Output Total 720 1040 Balance 238 -1020 Intake: IV 120 20 .9@10 50 Invasive Line 2 20 Invasive Line 3 30 20 Invasive Line 4 20 Oral 838 Output: Chest Tube Drainage 70 40 Chest Tube Left 70 40 Urine 650 1000 Straight 450 Other: Voiding Method Toilet Toilet # Voids 1 - Exam CONSTITUTIONAL: Appears comfortable, cooperative, no acute distress RESPIRATORY: Lungs sounds diminished bilaterally. Respirations even, nonlabored. Currently on room air with oxygen saturation 96%. Able to achieve 3500 mL on incentive spirometry. Strong cough. CARDIOVASCULAR: S1, S2 present. Regular rate and rhythm, sinus rhythm on telemetry. Palpable peripheral pulses bilaterally. No edema present. No calf pain or tenderness noted. SCDs present. GASTROINTESTINAL: Abdomen soft, nontender, nondistended. Active bowel sounds present 4 quadrants. Tolerating diet. Positive bowel movement 08/02 GENITOURINARY: Continues to void clear, yellow urine INTEGUMENTARY: Skin is warm and dry with evidence of good perfusion NEUROLOGIC: Cranial nerves II through XII intact MUSKULOSKELETAL: Able to move all extremities, strength equal bilaterally, gait normal PSYCHIATRIC: Alert and oriented to person place and time, appropriate affect, intact judgment and insight INVASIVE LINES AND TUBES: Left-sided pleural chest tube present to continuous wall suction, no airleak present, 100 mL serosanguineous drainage in the last 24 hours - Allied health notes Allied health notes reviewed: nursing - Labs CBC & Chem 7: 08/05/23 06:08 08/04/23 08:13 Labs: Abnormal Lab Results - Last 24 Hours (Table) 08/04/23 08/04/23 08/04/23 Range/Units 08:13 08:13 13:09 RBC 4.00 L 4.26 L (4.30-5.90) m/uL Hgb 11.8 L 12.5 L (13.0-17.5) gm/dL Hct 37.8 L (39.0-53.0) % Lymphocytes # 0.7 L (1.0-4.8) k/uL APTT (22.0-30.0) sec Sodium 131 L (137-145) mmol/L 08/04/23 08/05/23 08/05/23 Range/Units 19:06 06:08 06:08 RBC 3.59 L (4.30-5.90) m/uL Hgb 10.5 L (13.0-17.5) gm/dL Hct 32.1 L (39.0-53.0) % Lymphocytes # 0.9 L (1.0-4.8) k/uL APTT 46.0 H 39.1 H (22.0-30.0) sec Sodium (137-145) mmol/L - Imaging and Cardiology Chest x-ray: report reviewed, image reviewed Assessment and Plan Assessment: Persistent spontaneous left pneumothorax, status post placement of left-sided Thora vent with replacement 08/02/[address] Marks, status post left VATS with mechanical pleurodesis History of coronary artery disease with history of stent to the RCA in November 2019 Hyperlipidemia Paroxysmal atrial fibrillation on Xarelto for anticoagulation and amiodarone as an outpatient, last dose of Xarelto 07/30 COPD Testicular cancer in 1981 Chronic ongoing tobacco dependence Daily EtOH use drinks 2-3 beers daily Occasional marijuana use GERD Plan: Continue current medication therapy, will restart Xarelto after chest tube discontinuation Chest tube placed to waterseal, if remains stable will discontinue chest tube Sunday Encourage use of incentive spirometry 10 times every hour while awake Increase activity, ambulate as tolerated The importance of risk modification and smoking cessation has been discussed with the patient. Will continue to monitor daily chest x-rays. Okay for IV heparin from our standpoint until able to restart Xarelto Medical management of other comorbidities per internal medicine, cardiology, pulmonology More recommendations to follow
[2023-08-05] MEDS: AMIODARONE 200 MG TAB PO SCH (09:09)
[2023-08-05] MEDS: METOPROLOL TARTRATE 25 MG TAB PO SCH (09:19)
--- NOTE | 2023-08-05 10:31 | P.PN ---
Subjective HISTORY OF PRESENT ILLNESS: Patient is a 63-year-old who presented to the hospital because of acute onset shortness of breath that started 1 to 2 days and have gotten progressively worse. On admission he was found to have large left-sided pneumothorax. He underwent Thora vent placement with subsequent chest x-ray so showing complete reexpansion of left lung. On admission he was in sinus rhythm with intermittent PACs. July 25, WBC 9.6, hemoglobin 13, creatinine 1.16, 07/29 We have been asked to reassess the patient and his he is still having A-fib with RVR intermittently with sinus bradycardia. He is currently on amiodarone 100 mg daily. Patient is on Xarelto for anticoagulation. We will order echocardiogram which patient does have ordered for the office and we will plan to cancel. 07/30 Patient is seen today in follow-up. Patient states that his breathing is fine. He denies have any palpitations. No chest pain. Blood pressure 114/75, heart rate 5882. Patient is reaching 2250 on incentive spirometry. Early this morning, patient was in atrial fibrillation with RVR but currently in sinus rhythm. He appears to be going into A-fib RVR less frequently. Echocardiogram is pending. 07/31 Patient continues to have rise in heart rate with minimal activity but does not seem to be as tachycardic as before. In between atrial fibrillation, patient goes into sinus rhythm sinus bradycardia. He is currently on amiodarone 100 mg daily. Blood pressure 155/87, heart rate 61, pulse ox 95% on room air. Repeat blood works reveals hemoglobin 11.9. BUN 15 creatinine 1.07. Chest x-ray is stable portable chest. Left-sided pneumothorax seen with pleural catheter in place. Patient is scheduled for VATS procedure on Sunday. Echocardiogram reveals large pneumothorax. Normal LV systolic function. 08/01 This morning, patient had Thora vent chest tube replacement as it was nonfunctional. This was done by Dr. Marks. Patient is still scheduled tomorrow for left VATS tomorrow. Patient has been in a sinus rhythm with short bursts of A-fib less frequently, less induration and intensity. Patient denies feeling palpitations. Blood pressure 119/75, heart rate 62, pulse ox 100% on room air. 08/02 Patient underwent VATS procedure today. Patient complains of chest pain. He denies shortness of breath. Blood pressure 102/59, heart rate 58, pulse ox 97% on room air. 08/04/2023 Patient examined this morning at the bedside. Patient currently denies chest pain or pressure. He denies shortness of breath. Telemetry reveals sinus rhythm. Patient Xarelto remains on hold. Patient remains with chest tube to suction today. 08/05/2023 Patient examined this morning at the bedside. Patient reports mild discomfort at the chest tube site. He remains on IV heparin as his Xarelto is on hold. Patient went into A-fib with RVR this morning. Patient's heart rate is currently in the 130s. Blood pressure 102/72. PHYSICAL EXAM: VITAL SIGNS: Reviewed. GENERAL: Well-developed in no acute distress. NECK: Supple. No JVD or thyromegaly LUNGS: Respirations even and unlabored. Lungs essentially clear to auscultation bilaterally. HEART: Tachycardic. Irregular rate and rhythm. S1 and S2 heard. Chest tube noted. EXTREMITIES: Normal range of motion. No clubbing or cyanosis. Peripheral pulses intact. No lower extremity edema ASSESSMENT: Paroxysmal atrial fibrillation, alternating between RVR and sinus bradycardia, improved Dilated ascending aorta 4.3 cm Persistent spontaneous left pneumothorax secondary to advanced COPD Status post left-sided Thora vent with replacement 08/02/2023 Status post VATS, 08/03/2023 Coronary artery disease with previous stenting of the RCA, November 2019 COPD Nicotine dependence Daily alcohol use Nasal bleeding, stable PLAN: Continue current cardiac medications Continue amiodarone 200 mg daily Discontinue nifedipine Begin metoprolol to tartrate 25 mg twice a day His Xarelto remains on hold. Continue IV heparin in the meantime. Continue telemetry monitoring Further recommendations pending patient course Nurse practitioner note has been reviewed by physician. Signing provider agrees with the documented findings, assessment, and plan of care documented by LASER BEAM TRIM OPERATOR as a scribe. Objective - Vital Signs Vital signs: Vital Signs Temp 98.5 F 08/05/23 08:56 Pulse 115 H 08/05/23 08:56 Resp 18 08/05/23 08:56 BP 102/72 08/05/23 08:56 Pulse Ox 97 08/05/23 08:56 FiO2 98 08/01/23 08:00 Intake & Output 08/04/23 08/05/23 08/05/23 18:59 06:59 18:59 Intake Total 958 20 541.132 Output Total 720 1040 470 Balance 238 -1020 71.132 Intake: IV 120 20 130 .9@10 50 120 Invasive Line 2 20 Invasive Line 3 30 20 10 Invasive Line 4 20 Intake, IV Titration 171.132 Amount Heparin Sod,Pork in 0.45% 171.132 NaCl 25,000 unit In 0.45 % NaCl 1 250ml.bag @ 12 UNITS/KG/HR 8.709 mls/hr IV .Q24H [facility] Rx#: [id number] Oral 838 240 Output: Chest Tube Drainage 70 40 20 Chest Tube Left 70 40 20 Urine 650 1000 450 Straight 450 Other: Voiding Method Toilet Toilet Toilet # Voids 1 1 - Labs CBC & Chem 7: 08/05/23 06:08 08/04/23 08:13 Labs: Abnormal Lab Results - Last 24 Hours (Table) 08/04/23 08/04/23 08/05/23 Range/Units 13:09 19:06 06:08 RBC 4.26 L 3.59 L (4.30-5.90) m/uL Hgb 12.5 L 10.5 L (13.0-17.5) gm/dL Hct 32.1 L (39.0-53.0) % Lymphocytes # 0.9 L (1.0-4.8) k/uL APTT 46.0 H (22.0-30.0) sec 08/05/23 Range/Units 06:08 RBC (4.30-5.90) m/uL Hgb (13.0-17.5) gm/dL Hct (39.0-53.0) % Lymphocytes # (1.0-4.8) k/uL APTT 39.1 H (22.0-30.0) sec
[2023-08-05] MEDS: PSYLLIUM HUSK 100% 6 GM PACKET PO SCH (12:06)
--- NOTE | 2023-08-05 12:26 | P.PN ---
Subjective Progress Note Date: 08/05/23 This is a 63-year-old male patient who came into the emergency department with a spontaneous large left-sided pneumothorax. The patient acutely became short of breath this time was few days back and it progressively got worse. He came into the emergency room he was found to have a large left-sided pneumothorax in the Thora vent was inserted and a subsequent chest x-ray was done following the catheter insertion showed complete reexpansion of the left-sided pneumothorax without any residual abnormalities. The patient remains hemodynamically stable and the patient is currently on 2 L of oxygen by nasal cannula with a pulse ox of 99%. No chest pain. No trauma to the chest. No previous history of pneumothoraces. The patient has history of chronic smoking. The patient has previous history of paroxysmal atrial fibrillation, ascending thoracic aortic aneurysm and previous history of testicular cancer. Also known to have COPD secondary to smoking. His current cardiac rhythm has sinus. His most recent low-dose CAT scan of the chest that was done on 11/10/2022 showed stable ascending thoracic aortic aneurysm measuring 4.3 cm without any significant pulmonary nodules. There is evidence of moderate to severe background COPD/emphysema. 07/27/2023, the patient is being seen for a follow-up. The patient is calm and comfortable. No respiratory distress. Earlier this morning, the patient underwent a chest x-ray that showed less than 10% pneumothorax on the left. There was no evidence of any air leak in the Pleur-evac. Based on that, the wall suction was discontinued. Subsequently, repeat chest x-ray was done and showed enlargement in the left-sided pneumothorax which was in order of 50%. Based on that, I performed manual suctioning of the air and attached the Thora vent again to the Pleur-evac and there was persistent air leak. The patient remained hemodynamically stable. No significant respite distress. BUN is 14 with a creatinine of 1 and electrolytes are all within normal limits. WBC count 7 with a hemoglobin of 12. The patient remains on anticoagulation with Xarelto. Remains on IV fluid normal saline at rate of 75 cc an hour. No chest pain. No other new complaints otherwise for now. No pleurisy. No hemoptysis. On today's evaluation of 07/28/2023, the patient is being seen for a follow-up. The patient is doing extremely well. No specific complaints. The patient presented to us with a left-sided pneumothorax. The patient currently has a Thora vent in place. The Thora vent is attached to wall suction the patient continues to have air leak. Repeat chest x-ray was done and the patient was found to have 10 to 15% pneumothorax in the left apex. Otherwise, the patient is doing well. Moderately stable. Pulse ox 97% on room air oxygen. No chest pain. No other significant events overnight. He is using incentive spirometer. He is also on long-term anticoagulation with Xarelto. 07/29/2023, the patient is not having any complaints. Repeat chest x-ray from today shows a stable left apical pneumothorax. The Thora vent is in place and the patient has improved in terms of the air leak although there is some intermittent air leak still present in the Pleur-evac. Manual aspiration of the pneumothorax was done at the bedside. The patient is on room air oxygen. White cell count of 7 with a hemoglobin of 12 and a platelet count of 120. Electrolytes are all within normal limits. The patient has no respiratory complaints otherwise for now. Patient was evaluated today on 07/30/2023, patient is doing well clinically, however he continues to have ongoing air leak and persistent left-sided pneumothorax and spite of Thora vent in place. Patient is on room air, and O2 saturation 97 to 100%. WBC is 7.1 hemoglobin is 12 basic metabolic profile is normal renal profile is normal CT of the chest was ordered by thoracic surgery today, at this point in time his pneumothorax does not seem to be improving, although on his initial presentation when the Serevent was placed, there was a complete reexpansion of the left lung. Reevaluate today on 07/31/2023, patient continues to have small left apical pneumothorax, continues to have significant air leak, patient was seen by surgery, the plan is to place a chest tube replacing his Thora vent, and may require thoracoscopic evaluation and bleb resection in the next couple of days. Clinically however the patient is doing well. Seen today on 08/01/2023, continues to have left-sided pneumothorax, continues to have ongoing leak in the Pleur-evac, patient is supposed to have surgery/VATS with mechanical pleurodesis in the next 2 days, patient is now on Xarelto which is placed on hold. Clinically the patient is about the same, in no distress Patient was evaluated today on 08/02/2023, patient developed large left-sided pneumothorax today, and his Thora vent was nonfunctional in spite of attempts to suction out the pneumothorax manually. This was unsuccessful, hence I went ahe ad and removed his old Thora vent, and placed a new 1N, with a significant improvement of the pneumothorax. Patient is scheduled for VATS and mechanical pleurodesis tomorrow. Patient was evaluated today on 08/03/2023, patient just came back from VATS with wedge resection of left upper lobe apex/mechanical pleurodesis, patient is doing well, has mostly some postsurgical pain, otherwise no shortness of breath, no cough, no wheezing. No hemoptysis. His postoperative course seems to be relatively uneventful except for pain Patient was reevaluated today on 08/04/2023, patient is status post VATS with wedge resection of left upper lobe apex and mechanical pleurodesis. Doing great, has some vague aches and pains, not in any distress, continues to have chest tube in place, there is no evidence of leak. X-ray is reassuring, no evidence of pneumothorax The patient is seen today August 05, 2023 in follow-up on the selective care unit. Postoperative day #2 of a left video-assisted Thora scopic surgery with wedge resection and left upper lobe lobe apex, mechanical pleurodesis. He is curren tly sitting up at the bedside. Awake and alert in no acute distress. Chest x- ray remained stable. No pneumothorax noted. Left-sided chest tube remains to wall suction. No air leak present. Approximately 100 mL of drainage in the past 24 hours. He is maintaining good O2 saturations in the 90s on room air. Has been afebrile. Hemodynamically stable. White count 6.7. Hemoglobin 10.5. Platelets 152. He remains on an heparin drip. Remains on oral amiodarone. Continued on bronchodilators. NicoDerm patch in place. Working well with the incentive spirometer. Objective - Vital Signs Vital signs: Vital Signs Temp 97.8 F 08/05/23 12:16 Pulse 63 08/05/23 12:16 Resp 16 08/05/23 12:16 BP 96/65 08/05/23 12:16 Pulse Ox 97 08/05/23 12:16 FiO2 98 08/01/23 08:00 Intake & Output 08/04/23 08/05/23 08/05/23 18:59 06:59 18:59 Intake Total 958 20 577.043 Output Total 720 1040 470 Balance 238 -1020 107.043 Intake: IV 120 20 140 .9@10 50 120 Invasive Line 2 20 Invasive Line 3 30 20 Invasive Line 4 20 20 Intake, IV Titration 197.043 Amount Heparin Sod,Pork in 0.45% 197.043 NaCl 25,000 unit In 0.45 % NaCl 1 250ml.bag @ 12 UNITS/KG/HR 8.709 mls/hr IV .Q24H [facility] Rx#: [id number] Oral 838 240 Output: Chest Tube Drainage 70 40 20 Chest Tube Left 70 40 20 Urine 650 1000 450 Straight 450 Other: Voiding Method Toilet Toilet Toilet # Voids 1 1 - Exam GENERAL EXAM: Alert, see 3-year-old male, up in a chair, on room air, fairly comfortable in no apparent distress. HEAD: Normocephalic. EYES: Normal reaction of pupils, equal size. NOSE: Clear with pink turbinates. THROAT: No erythema or exudates. NECK: No masses, no JVD. CHEST: Left-sided chest tube remains in place to wall suction. No leak noted. LUNGS: Equal air entry with diminished breath sounds in the left lung base. CVS: S1 and S2 normal with no audible murmur, regular rhythm. ABDOMEN: No hepatosplenomegaly, normal bowel sounds, no guarding or rigidity. SPINE: No scoliosis or deformity SKIN: No rashes CENTRAL NERVOUS SYSTEM: No focal deficits, tone is normal in all 4 extremities. EXTREMITIES: There is no peripheral edema. No clubbing, no cyanosis. Peripheral pulses are intact. - Labs CBC & Chem 7: 08/05/23 06:08 08/04/23 08:13 Labs: Abnormal Lab Results - Last 24 Hours (Table) 08/04/23 08/04/23 08/05/23 Range/Units 13:09 19:06 06:08 RBC 4.26 L 3.59 L (4.30-5.90) m/uL Hgb 12.5 L 10.5 L (13.0-17.5) gm/dL Hct 32.1 L (39.0-53.0) % Lymphocytes # 0.9 L (1.0-4.8) k/uL APTT 46.0 H (22.0-30.0) sec 08/05/23 Range/Units 06:08 RBC (4.30-5.90) m/uL Hgb (13.0-17.5) gm/dL Hct (39.0-53.0) % Lymphocytes # (1.0-4.8) k/uL APTT 39.1 H (22.0-30.0) sec Assessment and Plan Assessment: Status post left video-assisted thoracoscopic surgery with wedge resection of left upper lobe apex and mechanical pleurodesis postoperative day #2 Acute spontaneous left-sided pneumothorax, status post Thora vent placement, x 2 History of underlying severe COPD History of testicular cancer back in 1981 Paroxysmal atrial fibrillation presently in sinus rhythm Hypertension Tobacco dependence syndrome History of ascending thoracic aortic aneurysm measuring 4.2 cm Plan: The patient was seen and evaluated Chest x-ray, labs and medications reviewed No evidence of pneumothorax No evidence of air leak Chest tube placed to waterseal per CT services Continue the use of the incentive spirometer Increase his activity as tolerated We will continue to follow I have personally seen and examined the patient, performed the documentation and the assessment and plan as written. Number of minutes spent on the visit: 10.
[2023-08-05 15:54] VITALS: RESP 18
--- NOTE | 2023-08-05 17:55 | P.PN ---
Progress Note - Text Progress Note Date: 08/05/23 Chief Complaint: Short of breath Pleasant 63-year-old patient, follows with Dr. Lacey. Chronic stable medical condition include atrial fibrillation, COPD, GERD, hypertension, hyperlipidemia, osteoarthritis, testicular cancer 98 2, CAD with stent. Smoker. Patient about 4 days ago became suddenly short of breath. Symptoms progressed per his progress decided to come in. He then had gone to [facility] he was told he has partially collapsed lung chest x-ray done by his PCP resulted him finding out he had pneumothorax Thora vent is placed to suction. On the left side. Also short of breath. Smoker. July 26: Left-sided Thora-vent to drainage. Some shortness of breath. Tolerating diet. X-ray from today shows less than 10% pneumothorax. Continue breathing treatment. 07/27. Patient seen and examined. States breathing is improved. Still has Thora vent in place. Denies any chest pain 07/28. Patient seen and examined. States he feels the same as yesterday, still has Thora vent in place 07/29. Patient seen and examined. Patient gets anxious easily. Patient heart rate was elevated on ambulation. Pulmonology recommended CT surgery evaluation 07/30. Patient seen and examined. Patient has Thora vent, plan is for change it to chest tube. 07/31. Patient seen and examined. CT surgery planning surgery on Sunday. Patient is currently sitting upright in the bed. No acute issues overnight August 01: Patient underwent replacement of Thora-vent today. Having some local pain. Xarelto has been on hold. Plan for VATS procedure tomorrow. Some shortness of breath. Eating well. August 02: Today patient is taken by cardiothoracic surgery Dr. Alba and patient underwent bronchoscopy followed by left video-assisted thoracoscopic surgery with wedge resection of the upper left lobe apex and mechanical pleurodesis. Postprocedure patient attached to chest tube. Some pain at the local site. August 03: Patient had run of A-fib overnight. Otherwise chest pain incision site is better. Tolerating diet. Had a bowel movement yesterday. On IV heparin. Xarelto on hold August 04: Up in the recliner. IV heparin. Chest tube to waterseal. Episode of A-fib with RVR this morning. Rate 130s. Eating fair. Chest x-ray no pne umothorax Active Medications Acetaminophen (Acetaminophen Tab 325 Mg Tab) 650 mg PO Q6HR PRN PRN Reason: Mild Pain or Fever > 100.5 Last Admin: 08/04/23 22:38 Dose: 650 mg Albuterol/Ipratropium (Ipratropium-Albuterol 3 Ml Neb) 3 ml INHALATION RT-QID [facility] Last Admin: 08/05/23 15:25 Dose: 3 ml Alprazolam (Alprazolam 0.25 Mg Tab) 0.25 mg PO QID PRN PRN Reason: Anxiety Last Admin: 08/02/23 07:52 Dose: 0.25 mg Amiodarone HCl (Amiodarone 200 Mg Tab) 200 mg PO DAILY [facility] Last Admin: 08/05/23 09:09 Dose: 200 mg Aspirin (Aspirin 81 Mg) 81 mg PO DAILY [facility] Last Admin: 08/05/23 09:09 Dose: 81 mg Atorvastatin Calcium (Atorvastatin 80 Mg Tab) 80 mg PO HS [facility] Last Admin: 08/04/23 22:38 Dose: 80 mg Budesonide (Budesonide 1 Mg/2 Ml Nebu) 1 mg INHALATION RT-BID [facility] Last Admin: 08/05/23 08:04 Dose: Not Given Docusate Sodium (Docusate 100 Mg Cap) 100 mg PO HS [facility] Last Admin: 08/04/23 22:38 Dose: 100 mg Heparin Sodium (Porcine) (Heparin Sodium 1,000 Un/Ml (10ml Vl)) 0 unit IV PER PROTOCOL PRN; Protocol PRN Reason: Low PTT Hydromorphone HCl (Hydromorphone 1 Mg/Ml 1 Ml Syringe) 1 mg IVP Q4HR PRN PRN Reason: Pain Last Admin: 08/05/23 14:47 Dose: 1 mg Heparin Sodium/Sodium Chloride (25,000 unit/ Sodium Chloride) 250 mls @ 8.709 mls/hr IV .Q24H [facility]; Protocol Last Titration: 08/05/23 15:49 Dose: 14 units/kg/hr, 10.161 mls/hr Metoprolol Tartrate (Metoprolol Tartrate 25 Mg Tab) 25 mg PO BID [facility] Last Admin: 08/05/23 09:19 Dose: 25 mg Morphine Sulfate (Morphine Sulfate 4 Mg/Ml Syringe) 4 mg IV Q4HR PRN PRN Reason: Severe Pain (Scale 7 to 10) Last Admin: 08/03/23 23:43 Dose: 4 mg Naloxone HCl (Naloxone 0.4 Mg/Ml 1 Ml Vial) 0.2 mg IV Q2M PRN PRN Reason: Opioid Reversal Nicotine (Nicotine 14mg/24hr Patch) 1 patch TRANSDERM DAILY [facility] Last Admin: 08/05/23 09:09 Dose: Not Given Pantoprazole Sodium (Pantoprazole 40 Mg Tablet) 40 mg PO DAILY [facility] Last Admin: 08/05/23 09:09 Dose: 40 mg Polyethylene Glycol (Polyethylene Glycol 3350 17 Gm Powd.Pack) 17 gm PO BID [facility] Last Admin: 08/05/23 09:09 Dose: 17 gm Psyllium Hydrophilic Mucilloid (Psyllium Husk 100% 6 Gm Packet) 6 gm PO BID [facility] Last Admin: 08/05/23 12:06 Dose: 6 gm Sodium Chloride (Saline Nasal Gel 14.1 Gm Tube) 1 applic NASAL Q4HR PRN PRN Reason: Dry Nasal Passages Last Admin: 07/28/23 21:35 Dose: 1 applic Tamsulosin HCl (Tamsulosin 0.4 Mg Cap.Er.24h) 0.4 mg PO PC-BRKFST [facility] Last Admin: 08/05/23 09:09 Dose: 0.4 mg Zolpidem Tartrate (Zolpidem 5 Mg Tab) 5 mg PO HS PRN PRN Reason: Insomnia Last Admin: 08/03/23 21:53 Dose: 5 mg Social history: Drinks 2-3 beers a day. . Retired. Smoking for long time currently 3 packs a week Physical examination: VITAL SIGNS: 98.6, 71, 18, 95/60, 95% room air GENERAL: Up in a recliner, awake HEENT: External appearance of nose and ears normal, oral cavity grossly normal. NECK: JVD not raised; masses not palpable. HEART: Heart sounds irregular; no edema. LUNGS: Respiratory rate increased, fair air entry. Left chest wall tube to waterseal ABDOMEN: Soft, nontender, liver spleen not palpable, no masses palpable. PSYCH: Alert and oriented x3; mood and affect sleepy MUSCULOSKELETAL:No Clubbing/cyanosis;muscles-grossly intact INVESTIGATIONS, reviewed in the clinical context: August 04: White count eight 6.7 hemoglobin 10.5 August 03: White count 9.4 hemoglobin 12.5 July 31: White count 6.5 hemoglobin 11.9 platelets 147 potassium 4.5 creatinine 1.07 July 26: White count 7.1 hemoglobin 12 platelets 120s potassium 3.9 creatinine 1.07 Chest x-ray film personally reviewed by me-initial film showed left-sided pneumothorax EKG tracing personally reviewed by me-normal sinus rhythm. July 26, 2023: White count 9.6 hemoglobin 13.7 platelets 162 sodium 137 potassium 4.2 creatinine 1.16 Assessment plan: -Spontaneous pneumothorax in a patient with advanced COPD: Recurrent: Slow to respond Left-sided Thora-vent to suction was placed. Repeat 1 was placed on August 01 August 02: Left lung lobe upper apex wedge resection. Mechanical pleurodesis. Left chest tube [placed, by Dr. Chelle Alba]-to waterseal -COPD and a current smoker DuoNeb. Nebulized Pulmicort -Hyperlipidemia Lipitor 80 mg nightly -Paroxysmal atrial fibrillation, in and out of the same IV heparin. Amiodarone. Xarelto.-Currently held -IV heparin monitoring Follow PTT -Chronic nicotine dependence, cigarette smoker -CAD with a prior history of stent Aspirin -GERD Protonix -Full code IV heparin. Plan for chest to be taken out tomorrow. Past Medical History Past Medical History: Atrial Fibrillation, Cancer, COPD, GERD/Reflux, Hyperlipidemia, Hypertension, Osteoarthritis (OA) Additional Past Medical History / Comment(s): Hx Testicular cancer in 1981, new bout of A-fib in post-op after recent colonoscopy, History of Any Multi-Drug Resistant Organisms: None Reported Past Surgical History: Heart Catheterization With Stent, Orthopedic Surgery Additional Past Surgical History / Comment(s): Right shoulder surgery, right leg surgery with clayton in femur, colonoscopy , Past Anesthesia/Blood Transfusion Reactions: No Reported Reaction Date of Last Stent Placement:: 12/10/19 Past Psychological History: No Psychological Hx Reported Smoking Status: Current every day smoker Past Alcohol Use History: Daily Additional Past Alcohol Use History / Comment(s): Has been smoking since 23 yrs old, 1 PPD. 2-3 BEERS DAILY Past Drug Use History: Marijuana Additional Drug Use History / Comment(s): daily marijuana use
--- NOTE | 2023-08-06 07:36 | P.PN ---
Subjective Progress Note Date: 08/06/23 Principal diagnosis: Persistent spontaneous left pneumothorax. Previous medical history of coronary artery disease with history of stent to the RCA in November 2019, hyperlipidemia, paroxysmal atrial fibrillation on Xarelto for anticoagulation and amiodarone as an outpatient, COPD, testicular cancer in 1981, chronic ongoing tobacco dependence, daily EtOH use drinks 2-3 beers daily, occasional marijuana use, and GERD. S/P day#12 placement of Thoravent left chest for spontaneous pneumothorax, replaced 08/10/[address] Marks due to increased pneumothorax with improvement POD #3 bronchoscopy, left video assisted thorascopic surgery with wedge resection of left upper lobe apex, mechanical pleurodesis, intercostal nerve block - 3 levels The patient was seen and examined this morning laying in bed on the cardiac stepdown unit in no acute distress. States pain is mostly controlled on current medication regimen. Chest x-ray reviewed, stable. Left chest tube present to water seal, no air leak present. Currently in sinus rhythm, hemodynamically stable. Objective - Vital Signs Vital signs: Vital Signs Temp 98 F 08/06/23 04:00 Pulse 76 08/06/23 04:00 Resp 18 08/06/23 04:00 BP 111/58 08/06/23 04:00 Pulse Ox 96 08/06/23 04:00 FiO2 98 08/01/23 08:00 Intake & Output 08/05/23 08/06/23 08/06/23 18:59 06:59 18:59 Intake Total 854.977 20 Output Total 1020 920 Balance -165.023 -900 Weight 71.6 kg Intake: IV 140 20 .9@10 120 Invasive Line 4 20 20 Intake, IV Titration 234.977 Amount Heparin Sod,Pork in 0.45% 234.977 NaCl 25,000 unit In 0.45 % NaCl 1 250ml.bag @ 12 UNITS/KG/HR 8.709 mls/hr IV .Q24H [facility] Rx#: [id number] Oral 480 Output: Chest Tube Drainage 70 20 Chest Tube Left 70 20 Urine 950 900 Other: Voiding Method Toilet Toilet # Voids 1 # Bowel Movements 1 - Exam CONSTITUTIONAL: Appears comfortable, cooperative, no acute distress RESPIRATORY: Lungs sounds diminished bilaterally. Respirations even, nonlabored. Currently on room air with oxygen saturation 96% CARDIOVASCULAR: S1, S2 present. Regular rate and rhythm, sinus rhythm on telemetry. Palpable peripheral pulses bilaterally. No edema present. No calf pain or tenderness noted. SCDs present. GASTROINTESTINAL: Abdomen soft, nontender, nondistended. Active bowel sounds present 4 quadrants. Tolerating diet. Positive bowel movement 08/04 GENITOURINARY: Continues to void clear, yellow urine INTEGUMENTARY: Skin is warm and dry with evidence of good perfusion NEUROLOGIC: Cranial nerves II through XII intact MUSKULOSKELETAL: Able to move all extremities, strength equal bilaterally, gait normal PSYCHIATRIC: Alert and oriented to person place and time, appropriate affect, intact judgment and insight INVASIVE LINES AND TUBES: Left-sided pleural chest tube present to water seal, no airleak present, 100 mL serosanguineous drainage in the last 24 hours - Allied health notes Allied health notes reviewed: nursing - Labs CBC & Chem 7: 08/05/23 06:08 08/04/23 08:13 Labs: Abnormal Lab Results - Last 24 Hours (Table) 08/05/23 Range/Units 15:04 APTT 45.4 H (22.0-30.0) sec - Imaging and Cardiology Chest x-ray: image reviewed Assessment and Plan Assessment: Persistent spontaneous left pneumothorax, status post placement of left-sided Thora vent with replacement 08/02/[address] Marks, status post left VATS with mechanical pleurodesis History of coronary artery disease with history of stent to the RCA in November 2019 Hyperlipidemia Paroxysmal atrial fibrillation on Xarelto for anticoagulation and amiodarone as an outpatient, last dose of Xarelto 07/30 COPD Testicular cancer in 1981 Chronic ongoing tobacco dependence Daily EtOH use drinks 2-3 beers daily Occasional marijuana use GERD Plan: Continue current medication therapy, will restart Xarelto after chest tube discontinuation Will discontinue chest tube this morning Encourage use of incentive spirometry 10 times every hour while awake Increase activity, ambulate as tolerated The importance of risk modification and smoking cessation has been discussed with the patient. 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
--- NOTE | 2023-08-06 07:42 | XR ---
EXAMINATION TYPE: XR chest 2V DATE OF EXAM: 08/06/2023 COMPARISON: 08/05/2023 HISTORY: Shortness of breath TECHNIQUE: Frontal and lateral views of the chest are obtained. FINDINGS: Scattered senescent parenchymal changes noted. Hyperinflation compatible with COPD. Coarse left upper lobe infiltrate is again noted. No evidence for atelectasis. Heart size is stable. Mediastinal structures are stable and grossly unremarkable. No evidence for hilar prominence. Degenerative changes dorsal spine. IMPRESSION: 1. No change in coarse left upper lobe infiltrate.
[2023-08-06 11:38] VITALS: BP 115/68; TEMP 99.1
--- NOTE | 2023-08-06 11:43 | P.PN ---
Subjective HISTORY OF PRESENT ILLNESS: Patient is a 63-year-old who presented to the hospital because of acute onset shortness of breath that started 1 to 2 days and have gotten progressively worse. On admission he was found to have large left-sided pneumothorax. He underwent Thora vent placement with subsequent chest x-ray so showing complete reexpansion of left lung. On admission he was in sinus rhythm with intermittent PACs. July 25, WBC 9.6, hemoglobin 13, creatinine 1.16, 07/29 We have been asked to reassess the patient and his he is still having A-fib with RVR intermittently with sinus bradycardia. He is currently on amiodarone 100 mg daily. Patient is on Xarelto for anticoagulation. We will order echocardiogram which patient does have ordered for the office and we will plan to cancel. 07/30 Patient is seen today in follow-up. Patient states that his breathing is fine. He denies have any palpitations. No chest pain. Blood pressure 114/75, heart rate 5882. Patient is reaching 2250 on incentive spirometry. Early this morning, patient was in atrial fibrillation with RVR but currently in sinus rhythm. He appears to be going into A-fib RVR less frequently. Echocardiogram is pending. 07/31 Patient continues to have rise in heart rate with minimal activity but does not seem to be as tachycardic as before. In between atrial fibrillation, patient goes into sinus rhythm sinus bradycardia. He is currently on amiodarone 100 mg daily. Blood pressure 155/87, heart rate 61, pulse ox 95% on room air. Repeat blood works reveals hemoglobin 11.9. BUN 15 creatinine 1.07. Chest x-ray is stable portable chest. Left-sided pneumothorax seen with pleural catheter in place. Patient is scheduled for VATS procedure on Sunday. Echocardiogram reveals large pneumothorax. Normal LV systolic function. 08/01 This morning, patient had Thora vent chest tube replacement as it was nonfunctional. This was done by Dr. Marks. Patient is still scheduled tomorrow for left VATS tomorrow. Patient has been in a sinus rhythm with short bursts of A-fib less frequently, less induration and intensity. Patient denies feeling palpitations. Blood pressure 119/75, heart rate 62, pulse ox 100% on room air. 08/02 Patient underwent VATS procedure today. Patient complains of chest pain. He denies shortness of breath. Blood pressure 102/59, heart rate 58, pulse ox 97% on room air. 08/04/2023 Patient examined this morning at the bedside. Patient currently denies chest pain or pressure. He denies shortness of breath. Telemetry reveals sinus rhythm. Patient Xarelto remains on hold. Patient remains with chest tube to suction today. 08/05/2023 Patient examined this morning at the bedside. Patient reports mild discomfort at the chest tube site. He remains on IV heparin as his Xarelto is on hold. Patient went into A-fib with RVR this morning. Patient's heart rate is currently in the 130s. Blood pressure 102/72. 08/06/2023 Patient examined this morning at the bedside. Patient had his chest tube removed this morning. He reports he is feeling much better since the removal. He denies any chest pain or pressure. Vital signs are stable. He is maintaining sinus mechanism with a heart rate in the 60s. PHYSICAL EXAM: VITAL SIGNS: Reviewed. GENERAL: Well-developed in no acute distress. NECK: Supple. No JVD or thyromegaly LUNGS: Respirations even and unlabored. Lungs essentially clear to auscultation bilaterally. HEART: Regular rate and rhythm. S1 and S2 heard. EXTREMITIES: Normal range of motion. No clubbing or cyanosis. Peripheral pulses intact. No lower extremity edema ASSESSMENT: Paroxysmal atrial fibrillation, alternating between RVR and sinus bradycardia, improved Dilated ascending aorta 4.3 cm Persistent spontaneous left pneumothorax secondary to advanced COPD Status post left-sided Thora vent with replacement 08/02/2023 Status post VATS, 08/03/2023 Coronary artery disease with previous stenting of the RCA, November 2019 COPD Nicotine dependence Daily alcohol use Nasal bleeding, stable PLAN: Continue current cardiac medications Continue amiodarone 200 mg daily Nifedipine has been discontinued. Continue current dose of metoprolol. Patient Xarelto will resume tonight. Discontinue IV heparin after Xarelto has been given. Continue telemetry monitoring Further recommendations pending patient course Nurse practitioner note has been reviewed by physician. Signing provider agrees with the documented findings, assessment, and plan of care documented by SUPER[employer]OR [employer]WORK as a scribe. Objective - Vital Signs Vital signs: Vital Signs Temp 99.1 F 08/06/23 09:30 Pulse 53 L 08/06/23 09:30 Resp 18 08/06/23 09:30 BP 115/68 08/06/23 09:30 Pulse Ox 97 08/06/23 09:30 FiO2 98 08/01/23 08:00 Intake & Output 08/05/23 08/06/23 08/06/23 18:59 06:59 18:59 Intake Total 854.977 20 368 Output Total 1020 920 Balance -165.023 -900 368 Weight 71.6 kg Intake: IV 140 20 10 .9@10 120 Invasive Line 4 20 20 10 Intake, IV Titration 234.977 Amount Heparin Sod,Pork in 0.45% 234.977 NaCl 25,000 unit In 0.45 % NaCl 1 250ml.bag @ 12 UNITS/KG/HR 8.709 mls/hr IV .Q24H [facility] Rx#: [id number] Oral 480 358 Output: Chest Tube Drainage 70 20 Chest Tube Left 70 20 Urine 950 900 Other: Voiding Method Toilet Toilet Toilet # Voids 1 # Bowel Movements 1 - Labs CBC & Chem 7: 08/05/23 06:08 08/04/23 08:13 Labs: Abnormal Lab Results - Last 24 Hours (Table) 08/05/23 08/06/23 Range/Units 15:04 09:41 APTT 45.4 H 41.4 H (22.0-30.0) sec
[2023-08-06 11:54] VITALS: PULSE 60
[2023-08-06] MEDS ORDERED: ENOXAPARIN 40 MG/0.4 ML SYRINGE SQ STA (11:56)
--- NOTE | 2023-08-06 12:02 | XR ---
EXAMINATION TYPE: XR chest 2V DATE OF EXAM: 08/06/2023 COMPARISON: 08/06/2023 HISTORY: Shortness of breath TECHNIQUE: Frontal and lateral views of the chest are obtained. FINDINGS: Scattered senescent parenchymal changes noted. Hyperinflation compatible with COPD. Coarse infiltrate left upper lobe. No significant change. Heart size is stable. Mediastinal structures are stable and grossly unremarkable. No evidence for hilar prominence. Degenerative changes dorsal spine. IMPRESSION: 1. Coarse infiltrate left upper lobe. No significant change.
[2023-08-06] MEDS: ENOXAPARIN 80 MG/0.8 ML SYRINGE SQ STA (12:23)
--- NOTE | 2023-08-06 12:25 | P.PN ---
Subjective Progress Note Date: 08/06/23 Principal diagnosis: Pneumothorax. Reevaluate today on 07/31/2023, patient continues to have small left apical pneumothorax, continues to have significant air leak, patient was seen by surgery, the plan is to place a chest tube replacing his Thora vent, and may require thoracoscopic evaluation and bleb resection in the next couple of days. Clinically however the patient is doing well. Seen today on 08/01/2023, continues to have left-sided pneumothorax, continues to have ongoing leak in the Pleur-evac, patient is supposed to have surgery/VATS with mechanical pleurodesis in the next 2 days, patient is now on Xarelto which is placed on hold. Clinically the patient is about the same, in no distress Patient was evaluated today on 08/02/2023, patient developed large left-sided pneumothorax today, and his Thora vent was nonfunctional in spite of attempts to suction out the pneumothorax manually. This was unsuccessful, hence I went ahead and removed his old Thora vent, and placed a new 1N, with a significant improvement of the pneumothorax. Patient is scheduled for VATS and mechanical pleurodesis tomorrow. Patient was evaluated today on 08/03/2023, patient just came back from VATS with wedge resection of left upper lobe apex/mechanical pleurodesis, patient is doing well, has mostly some postsurgical pain, otherwise no shortness of breath, no cough, no wheezing. No hemoptysis. His postoperative course seems to be relatively uneventful except for pain Patient was reevaluated today on 08/04/2023, patient is status post VATS with wedge resection of left upper lobe apex and mechanical pleurodesis. Doing great, has some vague aches and pains, not in any distress, continues to have chest tube in place, there is no evidence of leak. X-ray is reassuring, no e vidence of pneumothorax The patient is seen today August 05, 2023 in follow-up on the selective care unit. Postoperative day #2 of a left video-assisted Thora scopic surgery with wedge resection and left upper lobe lobe apex, mechanical pleurodesis. He is currently sitting up at the bedside. Awake and alert in no acute distress. Chest x-ray remained stable. No pneumothorax noted. Left-sided chest tube remains to wall suction. No air leak present. Approximately 100 mL of drainage in the past 24 hours. He is maintaining good O2 saturations in the 90s on room air. Has been afebrile. Hemodynamically stable. White count 6.7. Hemoglobin 10.5. Platelets 152. He remains on an heparin drip. Remains on oral amiodarone. Continued on bronchodilators. NicoDerm patch in place. Working well with the incentive spirometer. Progress note dated August 06, 2023. 63-year-old male postop day #3, status post left video-assisted thoracoscopic surgery with wedge resection and left upper lobe mechanical pleurodesis. The patient is currently on room air. He is not receiving any IV fluids. Chest tube has been removed. The patient is stable, without any respiratory distress, or difficulty, or chest pain. The primary service is considering possible discharge later today. Current labs include only a PTT of 41.4. The patient is currently on IV heparin, and saline at 10 cc an hour. Objective - Vital Signs Vital signs: Vital Signs Temp 99.1 F 08/06/23 09:30 Pulse 60 08/06/23 12:02 Resp 18 08/06/23 09:30 BP 115/68 08/06/23 09:30 Pulse Ox 97 08/06/23 09:30 FiO2 98 08/01/23 08:00 Intake & Output 08/05/23 08/06/23 08/06/23 18:59 06:59 18:59 Intake Total 854.977 20 368 Output Total 1020 920 Balance -165.023 -900 368 Weight 71.6 kg Intake: IV 140 20 10 .9@10 120 Invasive Line 4 20 20 10 Intake, IV Titration 234.977 Amount Heparin Sod,Pork in 0.45% 234.977 NaCl 25,000 unit In 0.45 % NaCl 1 250ml.bag @ 12 UNITS/KG/HR 8.709 mls/hr IV .Q24H [facility] Rx#: [id number] Oral 480 358 Output: Chest Tube Drainage 70 20 Chest Tube Left 70 20 Urine 950 900 Other: Voiding Method Toilet Toilet Toilet # Voids 1 # Bowel Movements 1 - Exam No acute distress, oriented 3. Currently on room air. No respiratory distress. Saturations are 97%. HEENT examination is grossly unremarkable. Mucous membranes are moist. No oral lesions. Neck supple. Full range of motion. No adenopathy thyromegaly or neck vein distention. Cardiovascular examination reveals regular rhythm rate. S1-S2 normal. No S3 or S4. No discernible murmur noted. Heart rate 60 bpm. Lungs reveal mostly clear breath sounds. Breath sounds are equal bilaterally. No wheezes or crackles. Minimal rhonchi. Abdomen soft bowel sounds are heard. No masses or tenderness. Extremities are intact. No cyanosis clubbing or edema. Skin is without rash or lesion. Neurologic examination is brief but nonfocal. - Labs CBC & Chem 7: 08/05/23 06:08 08/04/23 08:13 Labs: Abnormal Lab Results - Last 24 Hours (Table) 08/05/23 08/06/23 Range/Units 15:04 09:41 APTT 45.4 H 41.4 H (22.0-30.0) sec Assessment and Plan Assessment: Status post left video-assisted thoracoscopic surgery with wedge resection of left upper lobe apex and mechanical pleurodesis postoperative day #3. Acute spontaneous left-sided pneumothorax, status post Thora vent placement, x 2. History of underlying severe COPD. History of testicular cancer back in 1981. Paroxysmal atrial fibrillation presently in sinus rhythm. Hypertension. Tobacco dependence syndrome. History of ascending thoracic aortic aneurysm measuring 4.2 cm. Plan: Plan dated August 06, 2023. The patient is stable. The patient is on room air. He is only receiving IV heparin, to be restarted back on his factor Xa inhibitor. Labs, x-rays, medications are reviewed. The patient is stable for potential discharge from [facility] pulmonary standpoint. Will leave the discharge decision up to the primary service. No additional recommendations are made. We will continue to follow. Time with Patient: Less than 30
[2023-08-06] MEDS ORDERED: RIVAROXABAN 20 MG TAB PO SCH (21:00)
--- NOTE | 2023-08-07 21:08 | P.DS ---
Providers Date of admission: 07/26/23 12:26 Expected date of discharge: 08/06/23 Attending physician: Christopher Puri Consults: 07/26/23 12:36 Consult Physician Routine Consulting Provider: Jaun Davila Consult Reason/Comments: pneumothorax s/p thoravent Do you want consulting provider notified?: Already Contacted 07/27/23 12:10 Consult Physician Routine Consulting Provider: Jim Marion Consult Reason/Comments: controlled rate afib Do you want consulting provider notified?: Yes 07/30/23 11:21 Consult Physician Routine Consulting Provider: Braulio Alba Consult Reason/Comments: Persistent pneumothorax Do you want consulting provider notified?: Yes 07/31/23 10:42 Consult Physician Routine Consulting Provider: Miya Cervantes Consult Reason/Comments: afib uncontrolled Do you want consulting provider notified?: Already Contacted Primary care physician: [facility] Course: Chief Complaint: Short of breath Pleasant 63-year-old patient, follows with Dr. Lacey. Chronic stable medical condition include atrial fibrillation, COPD, GERD, hypertension, hyperlipidemia, osteoarthritis, testicular cancer 98 2, CAD with stent. Smoker. Patient about 4 days ago became suddenly short of breath. Symptoms progressed per his progress decided to come in. He then had gone to [facility] he was told he has partially collapsed lung chest x-ray done by his PCP resulted him finding out he had pneumothorax Thora vent is placed to suction. On the left side. Also short of breath. Smoker. July 26: Left-sided Thora-vent to drainage. Some shortness of breath. Tolerating diet. X-ray from today shows less than 10% pneumothorax. Continue breathing treatment. 07/27. Patient seen and examined. States breathing is improved. Still has Thora vent in place. Denies any chest pain 07/28. Patient seen and examined. States he feels the same as yesterday, still has Thora vent in place 07/29. Patient seen and examined. Patient gets anxious easily. Patient heart rate was elevated on ambulation. Pulmonology recommended CT surgery evaluation 07/30. Patient seen and examined. Patient has Thora vent, plan is for change it to chest tube. 07/31. Patient seen and examined. CT surgery planning surgery on Sunday. Patient is currently sitting upright in the bed. No acute issues overnight August 01: Patient underwent replacement of Thora-vent today. Having some local pain. Xarelto has been on hold. Plan for VATS procedure tomorrow. Some shortness of breath. Eating well. August 02: Today patient is taken by cardiothoracic surgery Dr. Alba and patient underwent bronchoscopy followed by left video-assisted thoracoscopic surgery with wedge resection of the upper left lobe apex and mechanical pleurodesis. Postprocedure patient attached to chest tube. Some pain at the local site. August 03: Patient had run of A-fib overnight. Otherwise chest pain incision site is better. Tolerating diet. Had a bowel movement yesterday. On IV heparin. Xarelto on hold August 04: Up in the recliner. IV heparin. Chest tube to waterseal. Episode of A-fib with RVR this morning. Rate 130s. Eating fair. Chest x-ray no pneumothorax August 05: Chest tube was removed. Cleared by pulmonary, cardiology, cardiothoracic team. Patient a bit counseled about smoking. at the bedside. Xarelto to be resumed. Follow-up with cardiology, cardiothoracic surgery and pulmonary and PCP. Questions answered. Chest x-ray no pneumothorax Discussion and discharge planning more than 35 minutes Social history: Drinks 2-3 beers a day. . Retired. Smoking for long time currently 3 packs a week Physical examination: VITAL SIGNS: 99.1, 65, 18, 115/68, 97% room air GENERAL: Up in a recliner, awake HEENT: External appearance of nose and ears normal, oral cavity grossly normal. NECK: JVD not raised; masses not palpable. HEART: Heart sounds irregular; no edema. LUNGS: Respiratory rate increased, fair air entry. Left chest wall tube to waterseal ABDOMEN: Soft, nontender, liver spleen not palpable, no masses palpable. PSYCH: Alert and oriented x3; mood and affect sleepy MUSCULOSKELETAL:No Clubbing/cyanosis;muscles-grossly intact INVESTIGATIONS, reviewed in the clinical context: August 04: White count eight 6.7 hemoglobin 10.5 August 03: White count 9.4 hemoglobin 12.5 July 31: White count 6.5 hemoglobin 11.9 platelets 147 potassium 4.5 creatinine 1.07 July 26: White count 7.1 hemoglobin 12 platelets 120s potassium 3.9 creatinine 1.07 Chest x-ray film personally reviewed by me-initial film showed left-sided pneumothorax EKG tracing personally reviewed by me-normal sinus rhythm. July 26, 2023: White count 9.6 hemoglobin 13.7 platelets 162 sodium 137 pota ssium 4.2 creatinine 1.16 Assessment plan: -Spontaneous pneumothorax in a patient with advanced COPD: Recurrent: Left-sided Thora-vent to suction was placed. Repeat 1 was placed on August 01 August 02: Left lung lobe upper apex wedge resection. Mechanical pleurodesis. Left chest tube [placed, by Dr. Chlele Alba]-to waterseal August 05: Chest tube removed -COPD and a current smoker DuoNeb. Nebulized Pulmicort -Hyperlipidemia Lipitor 80 mg nightly -Paroxysmal atrial fibrillation, in and out of the same IV heparin. Amiodarone. Xarelto.-Resume -IV heparin monitoring-discontinued Follow PTT -Normocytic anemia -Chronic nicotine dependence, cigarette smoker -CAD with a prior history of stent Aspirin -GERD Protonix -Full code Disposition: Home Past Medical History Past Medical History: Atrial Fibrillation, Cancer, COPD, GERD/Reflux, Hyperlipidemia, Hypertension, Osteoarthritis (OA) Additional Past Medical History / Comment(s): Hx Testicular cancer in 1981, new bout of A-fib in post-op after recent colonoscopy, History of Any Multi-Drug Resistant Organisms: None Reported Past Surgical History: Heart Catheterization With Stent, Orthopedic Surgery Additional Past Surgical History / Comment(s): Right shoulder surgery, right leg surgery with clayton in femur, colonoscopy , Past Anesthesia/Blood Transfusion Reactions: No Reported Reaction Date of Last Stent Placement:: 12/10/19 Past Psychological History: No Psychological Hx Reported Smoking Status: Current every day smoker Past Alcohol Use History: Daily Additional Past Alcohol Use History / Comment(s): Has been smoking since 23 yrs old, 1 PPD. 2-3 BEERS DAILY Past Drug Use History: Marijuana Additional Drug Use History / Comment(s): daily marijuana use Plan - Discharge Summary Discharge Rx Participant: Yes New Discharge Prescriptions: New Amiodarone [Cordarone] 200 mg PO DAILY #30 tab Ipratropium-Albuterol Nebulize [Duoneb 0.5 mg-3 mg/3 ml Soln] 3 ml INHALATION TID #90 each Nicotine 14Mg/24Hr Patch [Habitrol] 1 patch TRANSDERM DAILY #30 patch Metoprolol Tartrate [Lopressor] 25 mg PO BID #60 tab Budesonide/Formoterol Fumarate [Symbicort 160-4.5 Mcg Inhaler] 1 puff INHALATION BID #10.2 gm Acetaminophen Tab [Tylenol] 650 mg PO Q6HR PRN tab PRN Reason: Mild Pain Or Fever > 100.5 Tamsulosin [Flomax] 0.4 mg PO PC-BRKFST #30 cap Continue Atorvastatin [Lipitor] 80 mg PO HS #90 tab Pantoprazole [Protonix] 40 mg PO DAILY Aspirin 81 mg PO DAILY Rivaroxaban [Xarelto] 20 mg PO HS Discontinued Amiodarone HCl [Pacerone] 100 mg PO DAILY NIFEdipine XL [Procardia Xl] 30 mg PO DAILY Discharge Medication List Atorvastatin [Lipitor] 80 mg PO HS #90 tab 12/11/19 [Rx] Aspirin 81 mg PO DAILY 07/05/21 [History] Pantoprazole [Protonix] 40 mg PO DAILY 07/05/21 [History] Rivaroxaban [Xarelto] 20 mg PO HS 07/26/23 [History] Acetaminophen Tab [Tylenol] 650 mg PO Q6HR PRN tab 08/06/23 [Rx] Amiodarone [Cordarone] 200 mg PO DAILY #30 tab 08/06/23 [Rx] Budesonide/Formoterol Fumarate [Symbicort 160-4.5 Mcg Inhaler] 1 puff INHALATION BID #10.2 gm 08/06/23 [Rx] Ipratropium-Albuterol Nebulize [Duoneb 0.5 mg-3 mg/3 ml Soln] 3 ml INHALATION TID #90 each 08/06/23 [Rx] Metoprolol Tartrate [Lopressor] 25 mg PO BID #60 tab 08/06/23 [Rx] Nicotine 14Mg/24Hr Patch [Habitrol] 1 patch TRANSDERM DAILY #30 patch 08/06/23 [Rx] Tamsulosin [Flomax] 0.4 mg PO PC-BRKFST #30 cap 08/06/23 [Rx] Follow up Appointment(s)/Referral(s): Nasir Guerra MD [STAFF PHYSICIAN] - 08/15/23 10:45 am Paige Beach NPC [Nurse Practitioner] - 1 Week (Please come to office within a week of discharge for incision check, no need to make appointment, you may just walk into the office which is open Sunday to Sunday 8 AM to 4 PM) Miya Cervantes MD [STAFF PHYSICIAN] - 08/13/23 4:00 pm Amauri Lacey DO [Primary Care Provider] - 1-2 days Jim Marion MD [STAFF PHYSICIAN] - 08/13/23 4:00 pm (At [facility] [place] office.) Patient Instructions/Handouts: Spontaneous Pneumothorax (DC) Activity/Diet/Wound Care/Special Instructions: DISCHARGE INSTRUCTIONS: 1. No driving for 2 weeks, or until physician gives their ok. 2. No lifting, pushing, or pulling more than 10 pounds for 2 weeks. The physician will advise of any restriction changes. 3. Continue pain control per as needed orders 4. Continue with incentive spirometry and splinting until otherwise directed by the physician. 5. Leave chest tube dressing for 48 hours (Sunday). After that, remove all dressings and shower daily. 6. Routine incision care. No powders, lotions, ointments on incisions. 7. Please call surgeon/ACADEMIC SUPPORT SPECIALIST for temp greater than 101 F or purulent drainage from incisions. 8. Smoking cessation counseling and program information provided. Quitting smoking is the most important step you can take to improve your health. For additional information and assistance to quit smoking, please call the [place] tobacco quit line (6-254-AZZM-NOW/ ) or online: [email or web address] local ice pack/heating pad at Chest tube site Discharge Disposition: HOME SELF-CARE
--- NOTE | 2023-08-08 21:09 | CDI ---
Documentation Clarification Form Date: 08/08/2023 08:54:51 PM From: Melanie Cline Phone: Admit Date: 07/26/2023 12:26:00 PM Patient Name: Nathan Hamilton Visit Number: [id number] Discharge Date: 08/06/2023 02:25:00 PM ATTENTION: The Clinical Documentation Specialists (CDI) and [facility] Coding Staff appreciate your assistance in clarifying documentation. Please respond to the clarification below the line at the bottom and electronically sign. The CDI & [facility] Coding staff will review the response and follow-up if needed. Please note: Queries are made part of the Legal Health Record. If you have any questions, please contact the author of this message via ITS. Dr. Chirstopher Puri Normocyticanemia is documented per DC Summary. Clarification regarding anemia is requested. History/Risk Factors: 63yo M, Spontaneous PNtx, advancedCOPD, HLD, PAF, CAD, GERD, nasal bleeding, dilatedascending aorta,smoker, sp VATS withwedge resectionof CADE apex & mechanicalpleurodesis Clinical indicators: Hemoglobin: 07/25 13.7 07/26 12.0 07/31 11.9 08/03 11.8 08/04 10.5 Hematocrit: 07/25 41.7 07/26 36.0 07/31 37.4 08/03 37.8 08/04 32.1 Treatment: monitored Please clarify the type and acuity of anemia: [ ] Acute blood loss anemia [ + ] Unable to determine [ ] Other, please specify (Template Last Revised: March 2020) MTDD
--- NOTE | 2023-08-08 21:31 | CDI ---
Documentation Clarification Form Date: 08/08/2023 09:13:09 PM From: Melanie Cline Phone: Admit Date: 07/26/2023 12:26:00 PM Patient Name: Nathan Hamilton Visit Number: [id number] Discharge Date: 08/06/2023 02:25:00 PM ATTENTION: The Clinical Documentation Specialists (CDI) and [facility] Coding Staff appreciate your assistance in clarifying documentation. Please respond to the clarification below the line at the bottom and electronically sign. The CDI & [facility] Coding staff will review the response and follow-up if needed. Please note: Queries are made part of the Legal Health Record. If you have any questions, please contact the author of this message via ITS. Dr. Braulio Alba Your patient has diagnostic/radiology results: emphysema fibrosis/scar, respiratorybronchiolitis, chronic pleuritis andblebformation. Please clarify if there is an additional diagnosis and/or clinical significance related to this result. History/Risk Factors: 63yo M, Spontaneous pneumothorax, severeCOPDwbullous emphysema, HLD, PAF, CAD, anemia, GERD, nasal bleeding, Dilated ascending aorta, smoker, sp VATS with wedge resection of CADE apex & mechanical pleurodesis Clinical indicators: 46 gram CADE wedge resection measuring appr 11. 5 x 4. 5 x 4 cm in greatest dimension. The specimen is partially covered by a 12. 5 cm in length irregular staple line. The pleural surface is focally covered byadhesions. Sectioning reveals multipledilatedair spaces and extensive vela-black anthracotic pigment. Amassis not identified. Separate within the container is a 3 x 0. 8 x 0. 5 cm additional portion of pink-purple lung parenchyma partially covered by a 4. 5 cm in length staple line. 4CFSS Treatment: LT Thora-vent to suction wasplaced. Repeat 1 wasplacedon August 01. August 02: CADE upper apexwedge resection. Mechanicalpleurodesis. LTCT [placed, byDr. Chelle Alba]-to water seal August 05:CT removed Is there an additional diagnosis and/or clinical significance related to the above diagnostic/radiology result? [ x] Fibrosis/scar, respiratorybronchiolitis, chronic pleuritis andblebformation [ ] Result is not clinically significant (no additional diagnosis) [ ] Other, please specify [ ] Unable to determine (Template Last Reviewed: March 2020) MTDD
--- NOTE | 2023-08-08 21:40 | CDI ---
Documentation Clarification Form Date: 08/08/2023 09:32:29 PM From: Melanie Cline Phone: Admit Date: 07/26/2023 12:26:00 PM Patient Name: Nathan Hamilton Visit Number: [id number] Discharge Date: 08/06/2023 02:25:00 PM ATTENTION: The Clinical Documentation Specialists (CDI) and [facility] Coding Staff appreciate your assistance in clarifying documentation. Please respond to the clarification below the line at the bottom and electronically sign. The CDI & [facility] Coding staff will review the response and follow-up if needed. Please note: Queries are made part of the Legal Health Record. If you have any questions, please contact the author of this message via ITS. Dr. Christopher Puri There is documentation of Thora-vent tube isnonfunctional. Additional clarification is requested. History/Risk Factors: 63yo M, Spontaneous pneumothorax, severe COPD w bullous emphysema, HLD, PAF, CAD, anemia, GERD, nasal bleeding, Dilated ascending aorta, smoker, sp VATS with wedge resection of CADE apex & mechanical pleurodesis Clinical Indicators: Recurrent left-sided extensivespontaneous pneumothorax, and previous Thora-vent tube isnonfunctional. Treatment: Removalandplacementof a new Thora-Ventchest tube. Can you please clarify if the nonfunctional Thora-vent tube is a complication of care? [ ] Nonfunctional Thora-vent tube is a complication [ ] Nonfunctional Thora-vent tube is an expected outcome is not a complication [ ] Other, please specify [ ] Unable to determine (Template Last Revised: April 2020) MTDD
--- NOTE | 2023-08-10 23:20 | CDI ---
Documentation Clarification Form Date: 08/10/2023 11:16:57 PM From: Melanie Cline Phone: Admit Date: 07/26/2023 12:26:00 PM Patient Name: Nathan Hamilton Visit Number: [id number] Discharge Date: 08/06/2023 02:25:00 PM ATTENTION: The Clinical Documentation Specialists (CDI) and [facility] Coding Staff appreciate your assistance in clarifying documentation. Please respond to the clarification below the line at the bottom and electronically sign. The CDI & [facility] Coding staff will review the response and follow-up if needed. Please note: Queries are made part of the Legal Health Record. If you have any questions, please contact the author of this message via ITS. Dr. Jaun Davila There is documentation of Thora-vent tube isnonfunctional. Additional clarification is requested. History/Risk Factors: 63yo M,Spontaneous pneumothorax, severeCOPDwbullous emphysema,HLD,PAF,CAD,anemia,GERD, nasalbleeding,Dilatedascending aorta, smoker, spVATSwithwedge resectionof CADE apex mechanicalpleurodesis Clinical Indicators: Recurrent left-sided extensivespontaneous pneumothorax, and previous Thora-vent tube isnonfunctional. Treatment:Removalandplacementof a new Thora-Ventchest tube. Can you please clarify if the nonfunctional Thora-vent tube is acomplication of care? [ ] Nonfunctional Thora-vent tube is acomplication [ ] Nonfunctional Thora-vent tube is an expected outcomeis notacomplication [ ] other, please specify [ ] Unable to determine (Template LastRevised: April 2020) MTDD
--- NOTE | 2023-08-13 08:45 | CDI ---
Documentation Clarification Form Date: 08/13/2023 08:31:09 AM From: Melanie Cline Phone: Admit Date: 07/26/2023 12:26:00 PM Patient Name: Nathan Hamilton Visit Number: [id number] Discharge Date: 08/06/2023 02:25:00 PM ATTENTION: The Clinical Documentation Specialists (CDI) and [facility] Coding Staff appreciate your assistance in clarifying documentation. Please respond to the clarification below the line at the bottom and electronically sign. The CDI & [facility] Coding staff will review the response and follow-up if needed. Please note: Queries are made part of the Legal Health Record. If you have any questions, please contact the author of this message via ITS. Dr. Jaun Davila There is documentation of Thora-vent tube is nonfunctional. Additional clarification is requested. Patient history/risk factors: 63yo M, spontaneous pneumothorax spVATSwithwedge resectionof CADE apex mechanicalpleurodesis, advancedCOPD,HLD,PAF,CAD, GERD, nasalbleeding,dilatedascending aorta,smoker Clinical Indicators: Recurrent Lt extensive spontaneous pneumothorax and previous Thora-vent is nonfunctional Treatment: Removal and replacement of Thora-Vent chest tube, Is there an additional diagnosis that is clinically appropriate for this patient? [ ] Nonfunctional Thora-vent is a complication of care [ ] Nonfunctional Thora-vent is not a complication of care [ ] No additional diagnosis/Not clinically significant [ ] Unable to determine [ ] Other, please specify (Template Last Reviewed: March 2022) MTDD
--- NOTE | 2023-08-13 17:09 | CDI ---
Documentation Clarification Form Date: 08/13/2023 04:58:48 PM From: Melanie Cline Phone: Admit Date: 07/26/2023 12:26:00 PM Patient Name: Nathan Hamilton Visit Number: [id number] Discharge Date: 08/06/2023 02:25:00 PM ATTENTION: The Clinical Documentation Specialists (CDI) and [facility] Coding Staff appreciate your assistance in clarifying documentation. Please respond to the clarification below the line at the bottom and electronically sign. The CDI & [facility] Coding staff will review the response and follow-up if needed. Please note: Queries are made part of the Legal Health Record. If you have any questions, please contact the author of this message via ITS. Dr. Jaun Davila There is documentation of Thora-vent tube is nonfunctional. Additional clarification is requested. Patient history/risk factors: 63yo M,spontaneous pneumothorax spVATSwithwedge resectionof CADE apex mechanicalpleurodesis, advancedCOPD,HLD,PAF,CAD,GERD, nasalbleeding,dilatedascending aorta,smoker Clinical Indicators: Recurrent Lt extensivespontaneous pneumothoraxand previous Thora-vent is nonfunctional Treatment:Removalandreplacementof Thora-Ventchest tube, Is there an additional diagnosis that is clinically appropriate for this patient? [ ] Nonfunctional Thora-vent is acomplication ofcare [ x ] Nonfunctional Thora-ventis notacomplication ofcare [ ] No additional diagnosis/Not clinically significant [ ] Unable to determine [ ] Other, please specify (Template Last Reviewed: March 2022) MTDD
== END 2023-08-06 14:25 | disposition home or self-care (01) | DRG 164 ==
LOC: EC 10:43 → 1SOBS 12:26 → 3SCARD 17:07
PROVIDERS: ADMIT Hospitalist; ATTEND Hospitalist
PROC: 0W9B30Z Drainage of Left Pleural Cavity with Drainage Device, Percutaneous Approach (ICD-10-PCS; 2023-07-26)
PROC: 0WP830Z Removal of Drainage Device from Chest Wall, Percutaneous Approach (ICD-10-PCS; 2023-08-02)
PROC: 0W9B30Z Drainage of Left Pleural Cavity with Drainage Device, Percutaneous Approach (ICD-10-PCS; 2023-08-02)
PROC: 3E0T3BZ Introduction of Anesthetic Agent into Peripheral Nerves and Plexi, Percutaneous Approach (ICD-10-PCS; 2023-08-03)
PROC: 0BBG8ZZ Excision of Left Upper Lung Lobe, Via Natural or Artificial Opening Endoscopic (ICD-10-PCS; 2023-08-03)
PROC: 0B5P4ZZ Destruction of Left Pleura, Percutaneous Endoscopic Approach (ICD-10-PCS; principal; 2023-08-03 07:30)
DX: J43.8 Other emphysema (principal); J21.9 Acute bronchiolitis, unspecified; J93.12 Secondary spontaneous pneumothorax; J93.82 Other air leak; I71.21 Aneurysm of the ascending aorta, without rupture; J84.10 Pulmonary fibrosis, unspecified; I48.0 Paroxysmal atrial fibrillation; D64.9 Anemia, unspecified; I10 Essential (primary) hypertension; F17.210 Nicotine dependence, cigarettes, uncomplicated; I25.10 Atherosclerotic heart disease of native coronary artery without angina pectoris; J98.4 Other disorders of lung; K21.9 Gastro-esophageal reflux disease without esophagitis; E16.2 Hypoglycemia, unspecified; M19.90 Unspecified osteoarthritis, unspecified site; I49.1 Atrial premature depolarization; F10.90 Alcohol use, unspecified, uncomplicated; R04.0 Epistaxis; E78.5 Hyperlipidemia, unspecified; Z95.5 Presence of coronary angioplasty implant and graft; Z85.47 Personal history of malignant neoplasm of testis; Z79.01 Long term (current) use of anticoagulants; Z79.82 Long term (current) use of aspirin; Z79.899 Other long term (current) drug therapy; Z90.79 Acquired absence of other genital organ(s); Z88.8 Allergy status to other drugs, medicaments and biological substances; Z88.1 Allergy status to other antibiotic agents
CPT/HCPCS: 32551; 36415; 71045; 71046; 71250; 80048; 80053; 83735; 85025; 85610; 85730; 86850; 86900; 86901; 88307; 93005; 93306; 94640; 94760; 96361; 96374; 96376; 99291

== ENCOUNTER → 2023-08-24 | Outpatient (CLI) | payer MEDICARE ==
--- NOTE | 2023-08-24 12:01 | CT ---
EXAMINATION TYPE: CT chest wo con DATE OF EXAM: 08/24/2023 COMPARISON: 07/30/2023 HISTORY: 63-year-old male J93.83, f/u collapsed lung. TECHNIQUE: Contiguous axial scanning of the chest without IV contrast Coronal/sagittal reconstruction s performed. CT DLP: 229.90mGycm. Automatic exposure control utilized for a dose reduction. FINDINGS: The heart is normal size without pericardial effusion. Extensive LAD and RCA coronary artery calcific ations are present. 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 Mild to moderate atherosclerotic arch calcifications with conventional arch vessel branching anatomy. Ectasia upper descending thoracic aorta 3.3 cm is unchanged. No thoracic lymph adenopathy by CT size criteria. Moderate emphysematous change greatest at the upper lungs. Biapical pleural-parenchymal scarring. Sta ple line related to resection along the medial left apex. There is some irregular soft tissue thicken ing here not seen previously measuring up to 1.5 x 3.2 cm. Some contiguous pleural thickening extendi ng along the medial left upper lobe, axial image 16. Patchy opacities throughout the anterior left upper lung similar to slightly increased. Some hazy groundglass change periphery of the left lower lobe is unchanged. Subtle 4 mm nodule left l ower lobe not well seen previously should be reassessed at follow-up. Axial image 50. Visualized upper abdomen shows surgical clips along the retroperitoneum. Bones: No osseous destructive process. IMPRESSION: 1. Interval resolution of previous left-sided pneumothorax. There is post surgical change with a stap le line along the medial left apex. New soft tissue opacity here measures 3.2 x 1.5 cm and may reflec t scarring. Short interval follow-up to exclude neoplasm. 2. Some contiguous soft tissue thickening tracking down from here to the medial left upper lobe. Agai n, possible scarring, attention on follow-up. 3. Patchy airspace opacity along the anterior aspect of the left upper lung is similar to slightly in creased. Correlate for any known diagnosis. Ongoing close follow-up recommended especially if no infe ctious or inflammatory respiratory symptoms as a low-grade adenocarcinoma is in the differential. 4. A subtle 4 mm left lower lobe pulmonary nodule not well seen previously. Again, attention on follo w-up. 5. LAD and RCA coronary calcifications. 6. Similar mild aneurysm ascending aorta 4.1 cm.
== END | disposition home or self-care (01) ==
LOC: RADCTMAIN 10:19
PROVIDERS: ATTEND Internal Medicine
DX: J93.83 Other pneumothorax (principal); I71.40 Abdominal aortic aneurysm, without rupture, unspecified; I70.0 Atherosclerosis of aorta
CPT/HCPCS: 71250

== ENCOUNTER → 2023-10-22 | Outpatient (CLI) | payer MEDICARE ==
[2023-10-22 15:19] LABS: HCT 40.1 % (39.6-50.0); HGB 12.8 g/dL (13.0-17.0); MCH 29.9 pg (27.0-32.0); MCHC 31.9 g/dL (32.0-37.0); MCV 93.7 FL (80.0-97.0); Mean Platelet Volume 12.8 FL (9.5-12.2); NRBC Per 100 WBC 0 X 10*3/uL (0.00-0.01); Platelet Count 174 X 10*3/uL (140-440); RBC 4.28 X 10*6/uL (4.40-5.60); RDW 15.3 % (11.5-14.5); WBC 4.38 X 10*3/uL (4.50-10.00)
[2023-10-22 16:00] LABS: BUN/Creat Ratio 10.38 Ratio (12.00-20.00); Blood Urea Nitrogen 13.5 mg/dL (9.0-27.0); Calcium 9.3 mg/dL (8.7-10.3); Carbon Dioxide 20.7 mmol/L (21.6-31.8); Chloride 105 mmol/L (96-109); Chol/HDL Ratio 2.07 Ratio; Glucose 89 mg/dL (70-110); LDL Cholesterol,Calculated 54.3 mg/dL (0.0-131.0); Potassium 4.7 mmol/L (3.5-5.5); Sodium 141 mmol/L (135-145)
[2023-10-22 16:01] LABS: ALT 22 U/L (10-49); AST 24 U/L (14-35)
== END | disposition home or self-care (01) ==
LOC: LABWHC1 09:36
PROVIDERS: ATTEND Family Medicine
DX: E78.5 Hyperlipidemia, unspecified (principal); I10 Essential (primary) hypertension; E55.9 Vitamin D deficiency, unspecified
CPT/HCPCS: 36415; 80048; 80061; 82306; 84450; 84460; 85027

== ENCOUNTER → 2023-10-24 | Outpatient (CLI) | payer MEDICARE ==
[2023-10-24 19:57] LABS: % Iron Saturation 16.86 (15.00-50.00)
== END | disposition home or self-care (01) ==
LOC: LABWHC1 11:57
PROVIDERS: ATTEND Family Medicine
DX: D64.9 Anemia, unspecified (principal)
CPT/HCPCS: 36415; 83540; 83550

== ENCOUNTER → 2024-03-06 | Outpatient (CLI) | payer MEDICARE ==
--- NOTE | 2024-03-06 12:06 | CT ---
EXAMINATION TYPE: CT chest wo con DATE OF EXAM: 03/06/2024 COMPARISON: Prior chest CT August 24, 2023 HISTORY: Lung collapsed back in July. CT DLP: 399 mGycm. Automated Exposure Control for Dose Reduction was Utilized. TECHNIQUE: CT scan of the thorax is performed without IV contrast. FINDINGS: LUNGS: Mild to moderate underlying emphysematous change greatest in the upper lungs is redemonstrated . Mild biapical pleural/parenchymal scarring. Persistent linear density or possible suture medial lef t apex with improved surrounding soft tissue density. Worsening anterior left midlung opacities with peripheral cystic change. More prominent involvement on current study versus prior study involving th e left upper lobe. Persistent reticulation and focal nodular consolidation periphery of the left lowe r lobe slightly more prominent versus prior just above the diaphragm. Right lung remains clear. Some left-sided volume loss remains present. MEDIASTINUM: Lack of IV contrast is noted to limit evaluation for mediastinal and especially hilar ad enopathy. Coronary artery catheterization and/or stents are redemonstrated. No cardiomegaly or luis cardial effusion is seen. OTHER: Surgical clips in the retroperitoneum surrounding the upper abdominal aorta are partially imag ed similar to prior. IMPRESSION: Worsening left lung findings could reflect product of radiation treatment suspicious for fibrosis. Correlate clinically. There are areas of acute infiltrate on background chronic fibrosis ca nnot be excluded. Strict clinical correlation advised. [facility], , 03/06/2024 12:03 PM
== END | disposition home or self-care (01) ==
LOC: RADCTMAIN 10:51
PROVIDERS: ATTEND Internal Medicine
DX: J93.83 Other pneumothorax (principal)
CPT/HCPCS: 71250

== ENCOUNTER → 2024-05-29 | Outpatient (CLI) | payer MEDICARE ==
[2024-05-29 15:20] LABS: Appearance,Urine Clear (Clear); Bilirubin,Urine Negative (Negative); Blood,Urine Negative (Negative); Color,Urine Yellow (Yellow); Ketones,Urine Negative (Negative); Nitrite,Urine Negative (Negative); PH, Urine 6.5
[2024-05-29 15:36] LABS: HCT 41.5 % (39.6-50.0); HGB 13.5 g/dL (13.0-17.0); MCH 30.1 pg (27.0-32.0); MCHC 32.5 g/dL (32.0-37.0); MCV 92.4 FL (80.0-97.0); Mean Platelet Volume 12.9 FL (9.5-12.2); NRBC Per 100 WBC 0 X 10*3/uL (0.00-0.01); Platelet Count 142 X 10*3/uL (140-440); RBC 4.49 X 10*6/uL (4.40-5.60); RDW 13.7 % (11.5-14.5)
[2024-05-29 19:18] LABS: BUN/Creat Ratio 8.71 Ratio (12.00-20.00); Blood Urea Nitrogen 12.2 mg/dL (9.0-27.0); Chloride 101 mmol/L (96-109); Chol/HDL Ratio 2.02 Ratio; Glucose 97 mg/dL (70-110); LDL Cholesterol,Calculated 52.4 mg/dL (0.0-131.0); Potassium 4.1 mmol/L (3.5-5.5); Sodium 138 mmol/L (135-145)
[2024-05-29 19:19] LABS: ALT 16 U/L (10-49); AST 20 U/L (14-35); Albumin 4.7 g/dL (3.8-4.9); Albumin/Globulin Ratio 1.68 Ratio (1.60-3.17); Alkaline Phosphatase 78 U/L (41-126); Calcium 9.2 mg/dL (8.7-10.3); Carbon Dioxide 22.7 mmol/L (21.6-31.8); Globulin 2.8 g/dL (1.6-3.3); Prostate Specific Antigen 0.68 ng/mL (0.000-4.500); Total Bilirubin 1.1 mg/dL (0.3-1.2); Total Protein 7.5 g/dL (6.2-8.2)
== END | disposition home or self-care (01) ==
LOC: LABWHC1 12:19
PROVIDERS: ATTEND Family Medicine
DX: I10 Essential (primary) hypertension (principal); N40.0 Benign prostatic hyperplasia without lower urinary tract symptoms; E78.5 Hyperlipidemia, unspecified; R41.3 Other amnesia
CPT/HCPCS: 36415; 80053; 80061; 81003; 82306; 82607; 82746; 83036; 84153; 84443; 85027

== ENCOUNTER → 2024-06-05 | Outpatient (CLI) | payer MEDICARE ==
--- NOTE | 2024-06-05 10:45 | CT ---
EXAMINATION TYPE: CT brain wo con DATE OF EXAM: 06/05/2024 9:52 AM COMPARISON: 11/02/2022 CLINICAL INDICATION: Male, 63 years old with history of R41.3 amnesia, AMNESIA TECHNIQUE: CT of the brain is performed utilizing 3 mm thick sections through the posterior fossa and 3 mm thick sections through the remaining calvarium. Study is performed within 24 hours of arrival to the hospital. Contrast used: mL of , (none if empty) CT DLP: 1057.0 mGycm, Automated exposure control for dose reduction was used. FINDINGS: No abnormal hyperdensity is present to suggest an acute intracranial hemorrhage. No mass lesion is evident. No acute infarcts are evident. Ventricles and sulci are appropriate for the patient age. Paranasal sinuses and mastoid air cells within the [id number] are clear. IMPRESSION: 1. No acute intracranial process. Follow up MRI can be performed as clinically indicated. [facility], , 06/05/2024 10:35 AM
== END | disposition home or self-care (01) ==
LOC: RADCTMAIN 09:31
PROVIDERS: ATTEND Family Medicine
DX: R41.3 Other amnesia (principal)
CPT/HCPCS: 70450

== ENCOUNTER → 2024-06-10 | Outpatient (CLI) | payer MEDICARE ==
[2024-06-10 15:18] LABS: Blood Urea Nitrogen 16.8 mg/dL (9.0-27.0); Calcium 9.4 mg/dL (8.7-10.3); Carbon Dioxide 22.3 mmol/L (21.6-31.8); Chloride 102 mmol/L (96-109); Glucose 92 mg/dL (70-110); Potassium 4.9 mmol/L (3.5-5.5); Sodium 139 mmol/L (135-145)
== END | disposition home or self-care (01) ==
LOC: LABWHC1 08:50
PROVIDERS: ATTEND Family Medicine
DX: N28.9 Disorder of kidney and ureter, unspecified (principal)
CPT/HCPCS: 36415; 80048

== ENCOUNTER → 2024-08-28 | Outpatient (CLI) | payer MEDICARE ==
--- NOTE | 2024-08-28 09:40 | CT ---
EXAMINATION TYPE: CT chest wo con DATE OF EXAM: 08/28/2024 9:04 AM COMPARISON: 03/06/2024 CLINICAL INDICATION: Male, 64 years old with history of J93.83 OTHER PNEUMOTHORAX; PHH, Prior hx cecile apsed lung LT side. Follow up TECHNIQUE: Multiple axial images were obtained through the chest. Sagittal and coronal reformats were created for review. MIP was performed on a separate workstation. Contrast used: mL of (None if empty) Oral contrast used: (None if empty) CT DLP: 241.40 mGycm, Automated exposure control for dose reduction was used. FINDINGS: LUNGS/ PLEURA: There is moderate to severe emphysema with centrilobular and paraseptal emphysema gilbert ges with superimposed increased consolidation changes within the left upper lung compared to prior. N o focal consolidation, pneumothorax or pleural effusion. AIRWAY: Patent and unremarkable. HEART: Size within normal limits. Severe coronary artery calcifications present. MEDIASTINUM: No gross evidence of adenopathy. VASCULATURE: No aortic aneurysm. MUSCULOSKELETAL: Mild disc degeneration changes are present throughout the thoracolumbar spine second ashley to osteophyte formation and facet joint arthropathy. SOFT TISSUES/LYMPH NODES: Unremarkable. LOWER NECK: No significant findings. UPPER ABDOMEN: Surgical clips in upper abdomen. Colonic diverticulosis. High density material in the gallbladder lumen. IMPRESSION: 1. Increasing airspace consolidation in the left upper lobe superimposed on moderate to severe emphy sema. 2. No new or enlarging pulmonary nodules. [facility], , 08/28/2024 9:38 AM
== END | disposition home or self-care (01) ==
LOC: RADCTMAIN 08:43
PROVIDERS: ATTEND Internal Medicine
DX: J93.83 Other pneumothorax (principal); R91.8 Other nonspecific abnormal finding of lung field; J43.2 Centrilobular emphysema
CPT/HCPCS: 71250